=== PATIENT | male | born 1980 | race Caucasian/White ===

== ENCOUNTER 2017-02-10 17:39 | Emergency (ER) | payer OTHER ==
[2017-02-10] MEDS ORDERED: SODIUM CHLORIDE 0.9% 1,000 ML IV ONE (18:35)
[2017-02-10] MEDS ORDERED: ONDANSETRON 4 MG/2 ML VIAL IVP STA (19:00)
[2017-02-10] MEDS ORDERED: ONDANSETRON 4 MG/2 ML VIAL ONE (19:15)
== END 2017-02-10 20:30 | disposition home or self-care (01) ==
DX: R11.2 Nausea with vomiting, unspecified (principal); R74.8 Abnormal levels of other serum enzymes; R03.0 Elevated blood-pressure reading, without diagnosis of hypertension

== ENCOUNTER 2019-12-02 09:06 | Emergency (ER) | payer OTHER ==
[2019-12-02] MEDS ORDERED: BUPIVACAINE 0.5% PF 10 ML VIAL SUBQ STA (09:33)
--- NOTE | 2019-12-02 09:47 | XRAY Report ---
Reason: thumb vs hammer Procedure Date: 12/02/2019 Accession Number: [id number] / [id number] Procedure: XR - Finger(s) LT CPT Code: Final Report FULL RESULT: EXAM: LEFT FIRST DIGIT RADIOGRAPHY EXAM DATE: 12/02/2019 09:35 AM. CLINICAL HISTORY: Thumb vs hammer. COMPARISON: None. TECHNIQUE: 3 views. FINDINGS: Bones: There is comminuted fracture through the first distal phalanx. Joints: No evidence of dislocation. Soft Tissues: No evidence of radiopaque foreign body. IMPRESSION: There is comminuted fracture through the distal aspect of the first distal phalanx. RADIA
--- NOTE | 2019-12-02 10:08 | ED Physician Documentation ---
PD HPI UPPER EXT INJURY - Stated complaint Stated Complaint: L THUMB INJURY - Chief complaint Chief Complaint: Ext Problem - History obtained from History obtained from: Patient, Friend - History of Present Illness Location: Left, Finger (thumb) Type of injury: Blunt / blow Where injury occurred: Work Timing - onset: Yesterday (1729) Timing - duration: Hours Timing - details: Abrupt onset, Still present Improved by: Rest, Immobilization Worsened by: Moving, Palpating Associated symptoms: No: Weakness, Numbness, Tingling Contributing factors: No: Anticoagulated Similar symptoms before: Has not had sx before Recently seen: Not recently seen - Additonal information Additional information: 38-year-old male was at work yesterday when he was using a an aluminum blow hammer and struck the dorsum of his left thumb distally. He has partial avulsion of the nail and bleeding which was able to control with direct pressure he comes in this morning for evaluation. Review of Systems Constitutional: denies: Fever Ears: denies: Ear pain Nose: denies: Congestion Respiratory: denies: Cough GI: denies: Vomiting PD PAST MEDICAL HISTORY - Past Medical History Past Medical History: Yes Cardiovascular: Hypertension Neuro: Seizure disorder - Past Surgical History Past Surgical History: No - Present Medications Home Medications: Ambulatory Orders Medication Instructions Recorded Confirmed Amox/Clav 875/125 [Augmentin] 1 each PO Q12H #10 tablet 12/02/19 Hydrochlorothiazide 0 mg PO DAILY 12/02/19 12/02/19 Hydrocodone/Acetaminophen 1 - 2 each PO Q6H PRN #14 tablet 12/02/19 [Hydrocodon-Acetaminophen 5-325] - Allergies Allergies/Adverse Reactions: Allergies Allergy/AdvReac Type Severity Reaction Status Date / Time No Known Drug Allergies Allergy Verified 12/02/19 09:22 - Social History Does the pt smoke?: Yes Smoking Status: Current some day smoker ETOH Use: Beer Substance Use and Type: Marijuana - Immunizations Immunizations: TDAP >10years/unknown PD ED PE NORMAL - Vitals Vital signs reviewed: Yes (Hypertensive) - General General: Alert and oriented X 3, No acute distress, Well developed/nourished - HEENT HEENT: Atraumatic, PERRL, EOMI - Neck Neck: Supple, no meningeal sign - Respiratory Respiratory: No respiratory distress - Derm Derm: Normal color, Warm and dry, No rash - Extremities Extremities: Other (There is a partial avulsion of the nail proximally through the cuticle and a laceration to the ulnar surface of the left thumb. Significant swelling to the pulp of the thumb. There is no damage proximally.) - Neuro Neuro: scientific investigator 2-12 intact, No motor deficit, No sensory deficit, Normal speech Eye Opening: Spontaneous Motor: Obeys Commands Verbal: Oriented GCS Score: 15 - Psych Psych: Normal mood, Normal affect Results - Vitals Vitals: Vital Signs - 24 hr 12/02/19 09:17 Temperature 37 C Heart Rate 90 Respiratory 16 Rate Blood Pressure 177/122 H O2 Saturation 98 Oxygen O2 Source Room air - Rads (name of study) thumb Radiology: Prelim report reviewed, EMP read indepedently, See rad report Procedures - Laceration (location) left thumb Length in cm: 6 Wound type: Curved, Flap, Clean Neurovascular status: Sensory intact, Motor intact, Vascular intact Anesthesia: Marcaine 0.5% (digital block) Wound Preparation: Hibiclens, Irrigated copiously NS (750ml), Wound explored, To the base, Multiple flaps aligned Deep layer closure: Vicryl, size #-0 - enter number (5-0), # sutures - enter number (3), Other (into the nail bed) Skin layer closure: Nylon, Interrupted, Size #-0 - enter number (5-0) Other: Patient tolerated well, No complications, Neurovascular intact, Dressing applied, Tetanus booster given Complexity: Simple PD MEDICAL DECISION MAKING - ED course Complexity details: reviewed results, re-evaluated patient, considered differential, d/w patient, d/w family ED course: Previously well 38-year-old male with a crush injury to his left thumb has a comminuted fracture of the distal phlange and this is cleaned out reapproximated the margins of the wounds are sutured nailbed is reapproximated and sutured and the patient is given a tetanus booster and a gram of Ancef IM. We will place him on a 5-day course of prophylactic antibiotic and some pain medication and we will give him a two-week note for work after which she may perform duties with his right hand only. Departure - Departure Disposition: 01 Home, Self Care Clinical Impression: Open fracture of tuft of distal phalanx of left thumb Thumb laceration Qualifiers: Encounter type: initial encounter Damage to nail status: with damage Foreign body presence: without foreign body Laterality: left Qualified Code(s): S61.112A - Laceration without foreign body of left thumb with damage to nail, initial encounter Condition: Stable Instructions: ED Laceration Hand, ED Fx Finger Open Follow-Up: [facility] [Provider Group] Prescriptions: Amox/Clav 875/125 [Augmentin] 1 each PO Q12H #10 tablet Hydrocodone/Acetaminophen [Hydrocodon-Acetaminophen 5-325] 1 - 2 each PO Q6H PRN #14 tablet PRN Reason: pain Comments: There is an open fracture to the distal part of your thumb and this will require you to take some prophylactic antibiotic for about 5 days. You can expect pain when the numbing medication wears off and my recommendation is to take some the pain medication as you start to feel the numbing wear off. I have written a note for work for 2 weeks off and I suspect by that time you may be able to use your left hand somewhat with a splint on. Come back to the emergency department in 2 days time for a wound check and follow-up next week with the orthopedic surgeons for suture removal. Forms: Activity restrictions
[2019-12-02] MEDS ORDERED: ceFAZolin 1 GM VIAL IM STA (13:31)
[2019-12-02] MEDS ORDERED: TETANUS/DIPHTHERIA/PERTUSSIS 0.5 ML SYRINGE IM ONE (13:31)
[2019-12-02 13:56] VITALS: BP 162/113
== END 2019-12-02 14:09 | disposition home or self-care (01) ==
LOC: ED 09:06
DX: S62.522B Displaced fracture of distal phalanx of left thumb, initial encounter for open fracture (principal); S67.02XA Crushing injury of left thumb, initial encounter; W27.8XXA Contact with other nonpowered hand tool, initial encounter; Y93.89 Activity, other specified; Y99.0 Civilian activity done for income or pay; Z23 Encounter for immunization; I10 Essential (primary) hypertension; F17.200 Nicotine dependence, unspecified, uncomplicated
CPT/HCPCS: 12002; 12042; 73140; 90471; 99283; 99284

== ENCOUNTER 2020-07-15 04:03 | Outpatient (CLI) | payer OTHER | END 2020-07-15 04:04 | disposition critical access hospital (66) | LOC: EMS 04:03 | PROVIDERS: ATTEND Surgery | DX: R56.9 Unspecified convulsions (principal) | CPT/HCPCS: A0425; A0427 ==

== ENCOUNTER 2020-07-15 04:45 | Inpatient (IN) | payer OTHER ==
--- NOTE | 2020-07-15 04:44 | ED Physician Documentation ---
PD HPI SEIZURE - Stated complaint Stated Complaint: SZ - History obtained from History obtained from: Patient, EMS - History of Present Illness Timing - onset: Enter time (03:30), Today Witnessed: Witnessed Number of seizures: Single Description of seizure activity: Generalized Injury during seizure: Bit tongue Pain level max: 0 Pain level now: 0 Associated symptoms: None History of seizures: Prior EtOH wdrawal sz Contributing factors: EtOH withdrawal Treatment SOLUTIONS ANALYST: Other (none) Recently seen: Emergency Dept (T+R last month for similar problem) - Additional information Additional information: BIBA for seizure. 911 was called by patient's roommate. Reportedly had generalized seizure with LOC lasting approximately 1 minute. He had a seizure earlier during the day as well as approximately 1 week ago and another seizure last month (when he was T+R from this ED). Patient tells me he has been drinking alcohol on a heavy and regular basis and that he has been trying to wean himself off of alcohol. He says his prior seizures have been attributed to alcohol withdrawal. He has not followed up with a medical professional in the outpatient setting after being T+R last month. Review of Systems Constitutional: reports: Sweats. denies: Fever, Chills Eyes: denies: Loss of vision, Decreased vision, Photophobia Cardiac: reports: Reviewed and negative Respiratory: reports: Reviewed and negative GI: reports: Nausea, Vomiting. denies: Abdominal Pain Neurologic: reports: Seizure. denies: Generalized weakness, Focal weakness, Numbness, Headache Psychiatric: denies: Hallucinations, Anxiety (denies feeling anxious) PD PAST MEDICAL HISTORY - Past Medical History Past Medical History: Yes Cardiovascular: Hypertension - Past Surgical History Past Surgical History: No - Present Medications Home Medications: Ambulatory Orders Medication Instructions Recorded Confirmed Amox/Clav 875/125 [Augmentin] 1 each PO Q12H #10 tablet 12/02/19 Hydrochlorothiazide 0 mg PO DAILY 12/02/19 12/02/19 Hydrocodone/Acetaminophen 1 - 2 each PO Q6H PRN #14 tablet 12/02/19 [Hydrocodon-Acetaminophen 5-325] Lidocaine Viscous 2% [Xylocaine 5 ml PO Q4H PRN #100 ml 07/15/20 Viscous 2%] Ondansetron Odt [Zofran] 4 mg TL Q6H PRN #10 tablet 07/15/20 PHENobarbitaL [Phenobarbital] 30 mg PO BID #8 tablet 07/15/20 - Allergies Allergies/Adverse Reactions: Allergies Allergy/AdvReac Type Severity Reaction Status Date / Time No Known Drug Allergies Allergy Verified 07/15/20 04:53 - Living Situation Living Arrangement: reports: At home PD ED PE NORMAL - Vitals Vital signs reviewed: Yes - General General: Well developed/nourished, Other (awake, alert, oriented x 2 (identifies year as 2011; given a second attempt, he says 2001). He is tremulous at rest, appears hypervigilant and mildly diaphoretic) - HEENT HEENT: PERRL, EOMI, Moist mucous membranes, Other (midline tongue laceration with fresh blood although no active bleeding) - Neck Neck: Supple, no meningeal sign, No bony TTP - Cardiac Cardiac: No murmur - Respiratory Respiratory: No respiratory distress, Clear bilaterally - Abdomen Abdomen: Soft, Non tender, Non distended - Back Back: No spinal TTP - Derm Derm: Normal color, Warm and dry - Extremities Extremities: No tenderness to palpate, Normal ROM s pain, No edema PD ED PE EXPANDED - Cardiac Cardiac: Tachy, Regular Rhythm Results - Vitals Vitals: Vital Signs - 24 hr 07/15/20 07/15/20 07/15/20 04:48 05:36 06:20 Temperature 36.4 C L Heart Rate 135 H 121 H 119 H Respiratory 24 23 20 Rate Blood Pressure 119/105 H 117/82 H O2 Saturation 96 94 99 07/15/20 07/15/20 07/15/20 08:00 09:23 10:35 Temperature 37.3 C Heart Rate 118 H 110 H 111 H Respiratory 20 22 24 Rate Blood Pressure 137/99 H 143/108 H 126/97 H O2 Saturation 96 95 95 07/15/20 07/15/20 11:09 12:02 Temperature 37.1 C 37.0 C Heart Rate 121 H 122 H Respiratory 18 21 Rate Blood Pressure 142/102 H 143/110 H O2 Saturation 95 96 Oxygen O2 Source Room air - Labs Labs: Laboratory Tests 07/15/20 07/15/20 07/15/20 04:55 04:55 04:55 WBC 9.3 RBC 4.77 Hgb 15.6 Hct 44.6 MCV 93.5 MCH 32.7 H MCHC 35.0 RDW 14.0 Plt Count 57 L MPV 10.5 Neut # (Auto) 7.7 H Lymph # (Auto) 0.5 L Mills # (Auto) 0.8 Eos # (Auto) 0.2 Baso # (Auto) 0.1 Absolute Nucleated RBC 0.00 Nucleated RBC % 0.0 PT 15.9 H INR 1.5 H APTT 30.6 Sodium 137 Potassium 2.8 L Chloride 89 L Carbon Dioxide 24 Anion Gap 24.0 H BUN 5 L Creatinine 0.9 Estimated GFR (MDRD) 93 Glucose 182 H Calcium 7.6 L Total Bilirubin 1.9 H AST 182 H ALT < 10 L Alkaline Phosphatase 112 Total Protein 8.6 H Albumin 4.0 Globulin 4.6 H Albumin/Globulin Ratio 0.9 L Lipase 77 H Urine Opiates Screen Ur Oxycodone Screen Urine Methadone Screen Ur Propoxyphene Screen Ur Barbiturates Screen Ur Tricyclics Screen Ur Phencyclidine Scrn Ur Amphetamine Screen U Methamphetamines Scrn U Benzodiazepines Scrn Urine Cocaine Screen U Cannabinoids Screen Ethyl Alcohol < 5.0 07/15/20 08:51 WBC RBC Hgb Hct MCV MCH MCHC RDW Plt Count MPV Neut # (Auto) Lymph # (Auto) Mills # (Auto) Eos # (Auto) Baso # (Auto) Absolute Nucleated RBC Nucleated RBC % PT INR APTT Sodium Potassium Chloride Carbon Dioxide Anion Gap BUN Creatinine Estimated GFR (MDRD) Glucose Calcium Total Bilirubin AST ALT Alkaline Phosphatase Total Protein Albumin Globulin Albumin/Globulin Ratio Lipase Urine Opiates Screen NEGATIVE Ur Oxycodone Screen NEGATIVE Urine Methadone Screen NEGATIVE Ur Propoxyphene Screen NEGATIVE Ur Barbiturates Screen NEGATIVE Ur Tricyclics Screen NEGATIVE Ur Phencyclidine Scrn NEGATIVE Ur Amphetamine Screen NEGATIVE U Methamphetamines Scrn NEGATIVE U Benzodiazepines Scrn POSITIVE H Urine Cocaine Screen NEGATIVE U Cannabinoids Screen NEGATIVE Ethyl Alcohol PD MEDICAL DECISION MAKING - ED course Complexity details: reviewed old records, reviewed results, re-evaluated patient, considered differential, d/w patient ED course: on serial reexaminations during my overnight shift, patient exhibited improvement in his tremulousness as well as level of orientation (was oriented x 3 by end of my shift). However, he is still unsteady when trying to stand, has persistent tachycardia, and, although less tremulous, he does exhibit residual tremulousness with activity/movement (initially was evident even at rest). He still needs further IV hydration and potassium repletion before disposition can be determined, and would benefit from SW consult in AM for consideration of treatment options for his alcoholism. Case signed out to Dr. Lorenzo at end of my shift. Departure - Departure Disposition: 66 [facility] DC/Xfer Clinical Impression: Alcoholism, Alcohol related seizure, Generalized weakness, Electrolyte abnormality Alcohol withdrawal Qualifiers: Complication of substance-induced condition: with unspecified complication Qualified Code(s): F10.239 - Alcohol dependence with withdrawal, unspecified Tongue laceration Qualifiers: Encounter type: initial encounter Qualified Code(s): S01.512A - Laceration without foreign body of oral cavity, initial encounter Condition: Stable Discharge Date/Time: 07/15/20 14:50
[2020-07-15] MEDS ORDERED: FOLIC ACID INJ 1 MG, THIAMINE INJ 100 MG, MAGNESIUM SULFATE 2 GM, MULTIVITAMIN 10 ML in... IV STA ×5 (04:51)
[2020-07-15] MEDS ORDERED: SODIUM CHLORIDE 0.9% 1,000 ML IV STA ×2 (04:51→07:47)
[2020-07-15] MEDS ORDERED: LORazepam 2 MG/ML VIAL IVP STA (04:51)
[2020-07-15] MEDS ORDERED: ONDANSETRON 4 MG/2 ML VIAL IVP STA (04:54)
[2020-07-15] MEDS ORDERED: THIAMINE 100 MG/1 ML 2 ML MDV ONE (05:02)
[2020-07-15] MEDS ORDERED: FOLIC ACID 5 MG/1 ML 10ML MDV ONE (05:02)
[2020-07-15] MEDS ORDERED: MAGNESIUM SULFATE 1 GM/2 ML VIAL ONE (05:02)
[2020-07-15 05:09] LABS: INR 1.5 (0.8-1.2); PT - PROTHROMBIN TIME 15.9 secs (9.9-12.6)
[2020-07-15 05:13] LABS: BASOPHILS # (AUTO) 0.1 10^3/uL (0.0-0.1); BASOPHILS % (AUTO) 0.7 %; EOSINOPHILS # (AUTO) 0.2 10^3/uL (0.0-0.7); EOSINOPHILS % (AUTO) 1.9 %; HGB - HEMOGLOBIN 15.6 g/dL (14.0-18.0); LYMPHOCYTES # (AUTO) 0.5 10^3/uL (1.5-3.5); LYMPHOCYTES % (AUTO) 5.4 %; MEAN CORPUSCULAR HEMOGLOBIN 32.7 pg (27.0-31.0); MEAN CORPUSCULAR VOLUME 93.5 fL (80.0-94.0); MEAN PLATELET VOLUME 10.5 fL (7.4-11.4); MONOCYTES # (AUTO) 0.8 10^3/uL (0.0-1.0); MONOCYTES % (AUTO) 8.4 %; NEUTROPHILS # (AUTO) 7.7 10^3/uL (1.5-6.6); NEUTROPHILS % (AUTO) 82.6 %; PLT - PLATELET COUNT 57 10^3/uL (130-450); RED BLOOD COUNT 4.77 10^6/uL (4.70-6.10); WHITE BLOOD COUNT 9.3 x10^3/uL (4.8-10.8)
[2020-07-15 05:16] LABS: PARTIAL THROMBOPLASTIN TIME 30.6 secs (24.9-33.3)
[2020-07-15 05:23] LABS: ALBUMIN/GLOBULIN RATIO 0.9 (1.0-2.2); ALKALINE PHOSPHATASE 112 IU/L (42-121); ALT ALANINE AMINOTRANSFERASE < 10 IU/L (10-60); AST ASPARTATE AMINOTRANSFERASE 182 IU/L (10-42); BILIRUBIN,TOTAL 1.9 mg/dL (0.2-1.0); BUN - BLOOD UREA NITROGEN 5 mg/dL (6-20); CALCIUM 7.6 mg/dL (8.5-10.3); CARBON DIOXIDE - CO2 24 mmol/L (21-32); CHLORIDE 89 mmol/L (101-111); CREATININE 0.9 mg/dL (0.6-1.2); GLUCOSE 182 mg/dL (70-100); LIPASE 77 U/L (22-51); SODIUM 137 mmol/L (135-145); TOTAL PROTEIN 8.6 g/dL (6.7-8.2)
[2020-07-15] MEDS ORDERED: POTASSIUM CHLOR 10 MEQ/100 ML 10 MEQ/100 ML BAG IV STA (05:44)
[2020-07-15] MEDS ORDERED: POTASSIUM CHLORIDE 20 MEQ TABLET PO STA (07:48)
[2020-07-15] MEDS ORDERED: chlordiazePOXIDE 25 MG CAPSULE PO STA (07:48)
[2020-07-15] MEDS ORDERED: PHENobarbital 65 MG/ML VIAL IV STA (07:59)
[2020-07-15 08:59] LABS: MUDS CUTOFF CONCENTRATIONS CUTOFF CONC BELOW:
[2020-07-15 09:13] LABS: AMPHETAMINE SCREEN,URINE NEGATIVE (NEGATIVE); BENZODIAZEPINES SCREEN, URINE POSITIVE (NEGATIVE); COCAINE SCREEN URINE NEGATIVE (NEGATIVE); METHADONE SCREEN, URINE NEGATIVE (NEGATIVE); METHAMPHETAMINES SCREEN, URINE NEGATIVE (NEGATIVE); OPIATE SCREEN, URINE NEGATIVE (NEGATIVE); OXYCODONE SCREEN, URINE NEGATIVE (NEGATIVE); PROPOXYPHENE SCREEN, URINE NEGATIVE (NEGATIVE); TRICYCLIC ANTIDEPRESSANT,URINE NEGATIVE (NEGATIVE)
[2020-07-15] MEDS ORDERED: LIDOCAINE VISCOUS 2% 15 ML UDC MM STA (10:41)
[2020-07-15] MEDS ORDERED: LACTATED RINGERS 1,000 ML IV STA (13:54)
[2020-07-15] MEDS ORDERED: POTASSIUM CHLOR 10 MEQ/100 ML 10 MEQ/100 ML BAG IV ONE (13:55)
[2020-07-15] MEDS ORDERED: CALCIUM GLUCONATE 1,000 MG in SODIUM CHLORIDE 0.9% 50 ML IV STA (13:56)
[2020-07-15] MEDS ORDERED: oxyCODONE 5 MG TABLET PO PRN (14:04)
[2020-07-15] MEDS ORDERED: ONDANSETRON ODT 4 MG TABLET TL PRN (14:04)
[2020-07-15] MEDS ORDERED: ONDANSETRON 4 MG/2 ML VIAL IVP PRN (14:04)
[2020-07-15 14:25] LABS: CREATININE 0.5 mg/dL (0.6-1.2)
[2020-07-15 14:26] LABS: ALBUMIN 3.4 g/dL (3.2-5.5); ALBUMIN/GLOBULIN RATIO 0.9 (1.0-2.2); BILIRUBIN,TOTAL 2.4 mg/dL (0.2-1.0); CALCIUM 6.9 mg/dL (8.5-10.3); TOTAL PROTEIN 7.1 g/dL (6.7-8.2)
[2020-07-15] MEDS ORDERED: BENZOCAINE/MENTHOL LOZENGE MM PRN (15:43)
[2020-07-15 18:30] LABS: CALCIUM 7.2 mg/dL (8.5-10.3); CREATININE 0.6 mg/dL (0.6-1.2)
--- NOTE | 2020-07-15 18:51 | HISTORY & PHYSICAL EXAMINATION ---
Chief Complaint - Chief Complaint Chief Complaint: seizure History of Present Illness - Admitted From Admitted From:: home/ER - History Obtained From Records Reviewed: [facility] History obtained from: patient and Dr. Lorenzo Exam Limitations: sedated from phenobarb - History of Present Illness HPI Comment/Other: He is a 39-year-old white male who is been drinking since 18 years of age. Drinks a pint of hard alcohol a day. Years ago he did have withdrawal seizures. Lately he has been trying to cut back on his alcohol and is had a seizure a month ago, a week ago, and then today. He was seen in the emergency room by Dr. Lezama June 01 for a seizure at work. Again related to alcohol use. He was instructed to seek primary care provider follow-up, not to drive. He continues to work as a fitter/welder, and initially admitted he was still driving but then quickly denied it. In the travel registered nurse icu hours of this morning, he had a generalized seizure that lasted over a minute. He also had a seizure yesterday. His roommate finally just called 911 and brought him to the emergency room. He was initially afebrile with a tachycardic heart rate of 135. Respirations 24. He was awake, alert, oriented to person and place but not time. He was tremulous, hypervigilant, diaphoretic. A midline tongue laceration with fresh blood. White cell count was 9.3. INR is 1.5. Potassium was 2.8. Glucose 182. Total bili 1.9. AST 182. ALT less than 10. Total protein is 8.6. Alcohol alcohol is less than 5. He received a banana bag, Librium, Ativan, a liter of normal saline x2, Zofran and a potassium rider. Dr. Lorenzo then took over the case and gave him lactated Ringer's drip, Viscous Lidocaine for his mouth, and phenobarbital. Dr. Lorenzo is using phenobarbital not for seizures but for a new method of controlling withdrawal. The patient continues to be tremulous, tachycardic, and is not felt safe to go home as he is going into withdrawal. As such we were contacted and we are admitting the patient. History - Past Medical History Cardiovascular: reports: Hypertension Neuro: reports: Seizure disorder MRSA Hx?: No - Family & Social History Family History Comment/Other: Mom is in her 60s and and just had a stroke. Dad in his 40s of lupus. 2 siblings are healthy. 1 child is healthy Living arrangement: At home Living Situation: With friend(s) Social History Notes: He is from [place]. 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 He has been doing cannabis off and on all his life since about the age of 10. Drinking since the age of 18. He denies cocaine, heroin, LSD use. Never . Lives with a roommate. Does have one child that he is not in contact with. - Substance History Dependence: Experiences withdrawal or developed tolerances: Alcohol Dependence Issues: Intoxication, Delirium, Hallucinations, Withdrawal - POLST Patient has POLST: No POLST Status: Full Code Meds/Allgy - Home Medications Home Medications: Ambulatory Orders Medication Instructions Recorded Confirmed Amox/Clav 875/125 [Augmentin] 1 each PO Q12H #10 tablet 12/02/19 Hydrochlorothiazide 0 mg PO DAILY 12/02/19 12/02/19 Hydrocodone/Acetaminophen 1 - 2 each PO Q6H PRN #14 tablet 12/02/19 [Hydrocodon-Acetaminophen 5-325] Lidocaine Viscous 2% [Xylocaine 5 ml PO Q4H PRN #100 ml 07/15/20 Viscous 2%] Ondansetron Odt [Zofran] 4 mg TL Q6H PRN #10 tablet 07/15/20 PHENobarbitaL [Phenobarbital] 30 mg PO BID #8 tablet 07/15/20 - Allergies Allergies/Adverse Reactions: Allergies Allergy/AdvReac Type Severity Reaction Status Date / Time No Known Drug Allergies Allergy Verified 07/15/20 04:53 Review of Systems - Constitutional Constitutional: reports: Other (No unanticipated weight changes, fevers, chills, sweats. The only time he gets ill is when he goes through withdrawal.) - Eyes Eyes: denies: Pain, Irritation, Amaurosis, Blurred vision, Vision loss - Ears, Nose & Throat Ears, Nose & Throat: reports: Hearing loss, Tinnitus, Other (Right now his tongue is very swollen, tender, and he is drooling saliva, finding it difficult to speak). denies: Ear pain, Hearing aids, Vertigo - Cardiovascular Cariovascular: denies: Irregular heart rate, Palpitations, Chest pain, Edema, Syncope, Exertional dyspnea, Decr. exercise tolerance - Respiratory Respiratory: denies: Cough, Sputum production, Snoring, SOB at rest, SOB with exertion - Gastrointestinal Gastrointestinal: reports: Abdominal distention, Constipation, Bloating. denies: Abdominal pain, Diarrhea, Change in bowel habits, Rectal bleeding, Vomi ting, Bile emesis, Umer blood emesis, Coffee grounds emesis, Reflux/heartburn - Genitourinary Genitourinary: denies: Dysuria, Frequency, Urgency, Hematuria, Flank pain, Nocturia - Musculoskeletal Musculoskeletal: reports: Muscle pain, Back pain, Muscle aches. denies: Stiffness, Muscle weakness, Gout, Joint pain - Integumentary Integumentary: denies: Rash, Pruritis, Lesions, Dryness - Neurological Neurological: reports: Headache. denies: General weakness, Focal weakness, Dizziness, Pre-existing deficit, Abnormal gait - Psychiatric Psychiatric: reports: Depression (Is why he drinks. He denies suicidal ideation.), Hallucinations. denies: Anxiety, Suicidal, Delusions - Endocrine Endocrine: denies: Polyuria, Polydypsia, Polyphagia - Hematologic/Lymphatic Hematologic/Lymphatic: denies: Anemia, Bruising Prior Level of Functionality: Completely independent with regards to activities of daily living. He drives, pays the bills, dresses himself, feeds himself, takes care of his own apartment. 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 Exam - Vital Signs Reviewed Vital Signs: Yes Vital Signs: Vital Signs x48h Temp Pulse Pulse Resp BP BP Pulse Ox 07/15/20 16:38 37.9 C H 100 209 H 96 07/15/20 15:54 37.9 C H 101 H 20 126/93 H 96 07/15/20 15:01 36.9 C 112 H 19 131/99 H 95 07/15/20 14:43 37.0 C 117 H 24 135/106 H 93 07/15/20 12:02 37.0 C 122 H 21 143/110 H 96 07/15/20 11:09 37.1 C 121 H 18 142/102 H 95 - Physical Exam General Appearance: positive: Other (Stocky, lethargic white male who is 5 foot 6 inches tall and was 96 kg. Male pattern baldness, disheveled with a few Chuckie bautista. He is asleep when I wake him up, drool is all over the pillow, and he speaks with a thick slurred speech because of the swollen tongue) Eyes Bilateral: positive: PERRL, EOMI ENT: positive: Pharynx nml Neck: positive: No JVD, Lymphadenopathy (R), Lymphadenopathy (L). negative: Stiff neck Respiratory: positive: Chest non-tender. negative: Wheezes, Rales, Rhonchi Cardiovascular: positive: Regular rate & rhythm, Tachycardia. negative: Syst olic murmur, Gallop/S4, Friction rub Peripheral Pulses: positive: 2+ Abdomen: positive: Non-tender, No organomegaly, Nml bowel sounds, No distention Skin: positive: Warm, Dry Extremities: positive: Non-tender, Full ROM Neurologic/Psychiatric: positive: CN's nml (2-12), Disoriented to time, Slurred/abnml speech. negative: Motor nml (Tremulous. But using his arms and hands appropriately to grab pillows, grab sheets. Sit up in bed. Try and stand up. However when he stands up is off balance.) Conclusion/Plan - Problem List (1) Alcohol related seizure Conclusion/Plan: According to Dr. Lorenzo's protocol, continue with phenobarb 60 mg p.o. twice daily the next day, then 30 mg p.o. twice daily for 1 day, then 30 mg a day for 2 days and be done. Again he stresses that this is more for the withdrawal part than the true seizure. The thought being that if you treat the alcohol withdrawal seizure disorder will tameka. Plan: I need to fill out a DMV form on this patient. He states that he is not driving after I reminded him that he was told not to drive but he had already admitted he was. Because withdrawal seizures do not recur if the patient remains absent, long-term administration of antiepileptic drug is unnecessary and abstinent patient. Since he is not being abstinent we may have to decide to have to put him on seizure medications. However, seizure medications combined with alcohol can lower seizure threshold. Will use CIWA and benzo for control. If another seizure occurs, CT head. (2) Alcohol withdrawal Conclusion/Plan: CIWA protocol Banana bag with magnesium Qualifiers: Complication of substance-induced condition: with unspecified complication Qualified Code(s): F10.239 - Alcohol dependence with withdrawal, unspecified (3) Tongue laceration Conclusion/Plan: Tongue laceration lidocaine swish and spit with some Benadryl Qualifiers: Encounter type: initial encounter Qualified Code(s): S01.512A - Laceration without foreign body of oral cavity, initial encounter (4) Hypokalemia Conclusion/Plan: Supplemented p.o. and IV in the emergency room. Repeat potassium is 2.7. Will supplement with more K riders. (5) Alcoholic hepatitis Conclusion/Plan: At this time the elevation of liver enzymes is classic in its ratio with AST to ALT. Tomorrow morning will have blood draw for acute hepatitis panel to rule out other causes of hepatitis.will also check US liver Qualifiers: Ascites presence: without ascites Qualified Code(s): K70.10 - Alcoholic hepatitis without ascites - Lab Results Lab results reviewed: Yes Fish Bones: 07/15/20 04:55 07/15/20 18:10
[2020-07-15] MEDS ORDERED: LIDOCAINE VISCOUS 2% 100 ML BOTTLE MM PRN (19:07)
[2020-07-15] MEDS ORDERED: LORazepam 2 MG/ML VIAL IVP PRN (19:30)
[2020-07-15] MEDS ORDERED: diphenhydrAMINE ELIXIR 25 MG/10 ML UDC PO STA (19:31)
[2020-07-15] MEDS: LACTATED RINGERS 1,000 ML IV SCH (19:41)
[2020-07-15] MEDS: POTASSIUM CHLOR 10 MEQ/100 ML 10 MEQ/100 ML BAG IV SCH ×5 (19:42→23:51)
[2020-07-15] MEDS: SODIUM CHLORIDE FLUSH 0.9% 10 ML SYRINGE IVP SCH (19:42)
[2020-07-15] MEDS ORDERED: diphenhydrAMINE ELIXIR 25 MG/10 ML UDC PO PRN (20:00)
[2020-07-15] MEDS ORDERED: MAGIC MOUTHWASH 120 ML BOTTLE PO PRN (20:28)
[2020-07-15] MEDS: PHENobarbitaL 32.4 MG TABLET PO SCH (21:32)
[2020-07-16] MEDS: POTASSIUM CHLOR 10 MEQ/100 ML 10 MEQ/100 ML BAG IV SCH ×3 (00:54→03:00)
[2020-07-16] MEDS: SODIUM CHLORIDE FLUSH 0.9% 10 ML SYRINGE IVP SCH ×3 (01:35→21:23)
[2020-07-16] MEDS: LACTATED RINGERS 1,000 ML IV SCH ×2 (02:59→20:31)
[2020-07-16 06:15] LABS: BASOPHILS % (AUTO) 0.6 %; EOSINOPHILS % (AUTO) 0.2 %; HGB - HEMOGLOBIN 13.3 g/dL (14.0-18.0); LYMPHOCYTES # (AUTO) 0.7 10^3/uL (1.5-3.5); MEAN CORPUSCULAR HGB CONC 34.5 g/dL (32.0-36.0); MEAN CORPUSCULAR VOLUME 95.8 fL (80.0-94.0); MEAN PLATELET VOLUME 11.3 fL (7.4-11.4); MONOCYTES # (AUTO) 0.5 10^3/uL (0.0-1.0); MONOCYTES % (AUTO) 11.2 %; NEUTROPHILS # (AUTO) 3.4 10^3/uL (1.5-6.6); NEUTROPHILS % (AUTO) 73.6 %; PLT - PLATELET COUNT 36 10^3/uL (130-450); RED BLOOD COUNT 4.03 10^6/uL (4.70-6.10); RED CELL DISTRIBUTION WIDTH 14.4 % (12.0-15.0); WHITE BLOOD COUNT 4.6 x10^3/uL (4.8-10.8)
[2020-07-16 06:38] LABS: ALBUMIN 3.2 g/dL (3.2-5.5); ALKALINE PHOSPHATASE 93 IU/L (42-121); ALT ALANINE AMINOTRANSFERASE 26 IU/L (10-60); AST ASPARTATE AMINOTRANSFERASE 150 IU/L (10-42); BILIRUBIN,DIRECT 1.5 mg/dL (0.1-0.5); BUN - BLOOD UREA NITROGEN < 5 mg/dL (6-20); CALCIUM 7.4 mg/dL (8.5-10.3); CARBON DIOXIDE - CO2 23 mmol/L (21-32); CHLORIDE 97 mmol/L (101-111); CREATININE 0.5 mg/dL (0.6-1.2); GLUCOSE 109 mg/dL (70-100); MAGNESIUM 1.1 mg/dL (1.7-2.8); PHOSPHORUS 2.3 mg/dL (2.5-4.6); SODIUM 136 mmol/L (135-145); TOTAL PROTEIN 7.1 g/dL (6.7-8.2)
--- NOTE | 2020-07-16 07:26 | PROVIDER PROGRESS NOTE ---
Subjective - Prog Note Date Prog Note Date: 07/16/20 Prog Note Time: 15:26 - Subjective Pt reports feeling: Improved Subjective: Yesterday he was tremulous, diaphoretic, disoriented, speaking with a slurred speech and difficult to get a history out of. This morning he is sitting up. Tongue still hurts. But eating. Lucid. States the only thing he feels right now is sweaty. No chest pain, palpitations, shortness of breath. Current Medications - Current Medications Current Medications: Active Medications Multivitamins 10 ml/ Folic Acid 1 mg/ Thiamine HCl 100 mg / Magnesium Sulfate 2 gm/Sodium Chloride 1,015.2 mls @ 100 mls/hr IV DAILY [facility] Lactated Ringer's (Lr) 1,000 mls @ 125 mls/hr IV .Q8H [facility] Last Admin: 07/16/20 02:59 Dose: 125 mls/hr Documented by: Potassium Chloride (Potassium Chloride) 10 meq in 100 mls @ 100 mls/hr IV Q1H [facility] Stop: 07/16/20 11:59 Lorazepam (Ativan Inj (Vial)) 2 mg IVP Q2H PRN PRN Reason: Alcohol Withdrawal Multi-Ingredient Mouthwash/Gargle () 30 ml PO Q4H PRN PRN Reason: Mouth Sore Pain Ondansetron HCl (Zofran Odt) 4 mg TL Q6HR PRN PRN Reason: Nausea / Vomiting Ondansetron HCl (Zofran Inj) 4 mg IVP Q6HR PRN PRN Reason: Nausea / Vomiting Oxycodone HCl (Roxicodone) 5 mg PO Q4HR PRN PRN Reason: Pain 5 to 7 Phenobarbital () 64.8 mg PO BID [facility] Stop: 07/16/20 09:01 Last Admin: 07/15/20 21:32 Dose: 64.8 mg Documented by: Phenobarbital () 32.4 mg PO BID [facility] Stop: 07/17/20 21:01 Phenobarbital () 32.4 mg PO QPM [facility] Stop: 07/19/20 21:01 Sodium Chloride (Normal Saline Flush 0.9%) 10 ml IVP PRN PRN PRN Reason: NEEDED PER PROVIDER ORDERS Sodium Chloride (Normal Saline Flush 0.9%) 10 ml IVP 0100,0900,1700 [facility] Last Admin: 07/16/20 01:35 Dose: Not Given Documented by: Throat Lozenges (Cepacol) 1 lozenge MM Q2HR PRN PRN Reason: Throat pain Last Admin: 07/15/20 16:12 Dose: 1 lozenge Documented by: Hydrochlorothiazide 0 mg PO DAILY 12/02/19 Objective - Vital Signs/Intake & Output Reviewed Vital Signs: Yes Vital Signs: Vital Signs x48h Temp Pulse Resp BP Pulse Ox 07/16/20 00:00 37.0 C 96 18 143/103 H 94 Intake & Output: Intake & Output 07/13/20 07/14/20 07/15/20 07/16/20 23:59 23:59 23:59 23:59 Intake Total 4597.283 1008.750 Output Total 350 1500 Balance 4247.283 -491.250 - Objective General Appearance: positive: No acute distress, Alert, Other (Much improved from yesterday) Eyes Bilateral: positive: PERRL, EOMI ENT: positive: Other (Tip of his tongue is black and bruised. No oozing. He had blood yesterday today he does not. He is speaking with a slurred speech because of the swelling of the tongue) Neck: positive: No JVD, Trachea midline. negative: Lymphadenopathy (R), Lymphadenopathy (L) (Shotty anterior neck nodes), Stiff neck Respiratory: positive: Chest non-tender. negative: Wheezes, Rales, Rhonchi Cardiovascular: positive: Regular rate & rhythm. negative: Tachycardia, Gallop/S4, Friction rub Abdomen: positive: Non-tender, No organomegaly, Nml bowel sounds, No distention Skin: positive: Warm, Diaphoresis Extremities: positive: Non-tender, Full ROM Neurologic/Psychiatric: positive: Oriented x3, CN's nml (2-12), Motor nml (Except for some tremors when I have him hold on his hands. [id number] is normal.) - Lab Results Fish Bones: 07/16/20 05:50 07/16/20 14:13 Other Labs: Lab Results x24hrs 07/16/20 07/16/20 07/15/20 Range/Units 05:50 05:50 18:10 WBC 4.6 L (4.8-10.8) x10^3/uL RBC 4.03 L (4.70-6.10) 10^6/uL Hgb 13.3 L (14.0-18.0) g/dL Hct 38.6 L (42.0-52.0) % MCV 95.8 H (80.0-94.0) fL MCH 33.0 H (27.0-31.0) pg MCHC 34.5 (32.0-36.0) g/dL RDW 14.4 (12.0-15.0) % Plt Count 36 L (130-450) 10^3/uL MPV 11.3 (7.4-11.4) fL Neut # (Auto) 3.4 (1.5-6.6) 10^3/uL Lymph # (Auto) 0.7 L (1.5-3.5) 10^3/uL Lamb # (Auto) 0.5 (0.0-1.0) 10^3/uL Eos # (Auto) 0.0 (0.0-0.7) 10^3/uL Baso # (Auto) 0.0 (0.0-0.1) 10^3/uL Absolute Nucleated RBC 0.00 x10^3/uL Nucleated RBC % 0.0 /100WBC Sodium 136 137 (135-145) mmol/L Potassium 2.8 L 2.7 L (3.5-5.0) mmol/L Chloride 97 L 97 L (101-111) mmol/L Carbon Dioxide 23 25 (21-32) mmol/L Anion Gap 16.0 H 15.0 H (6-13) BUN < 5 L 5 L (6-20) mg/dL Creatinine 0.5 L 0.6 (0.6-1.2) mg/dL Estimated GFR (MDRD) 183 148 (>89) Glucose 109 H 109 H (70-100) mg/dL Calcium 7.4 L 7.2 L (8.5-10.3) mg/dL Phosphorus 2.3 L (2.5-4.6) mg/dL Magnesium 1.1 L (1.7-2.8) mg/dL Total Bilirubin 3.0 H (0.2-1.0) mg/dL Direct Bilirubin 1.5 H (0.1-0.5) mg/dL AST 150 H (10-42) IU/L ALT 26 (10-60) IU/L Alkaline Phosphatase 93 (42-121) IU/L Total Protein 7.1 (6.7-8.2) g/dL Albumin 3.2 (3.2-5.5) g/dL Globulin 3.9 (2.1-4.2) g/dL Albumin/Globulin Ratio (1.0-2.2) Lipase (22-51) U/L Urine Opiates Screen (NEGATIVE) Ur Oxycodone Screen (NEGATIVE) Urine Methadone Screen (NEGATIVE) Ur Propoxyphene Screen (NEGATIVE) Ur Barbiturates Screen (NEGATIVE) Ur Tricyclics Screen (NEGATIVE) Ur Phencyclidine Scrn (NEGATIVE) Ur Amphetamine Screen (NEGATIVE) U Methamphetamines Scrn (NEGATIVE) U Benzodiazepines Scrn (NEGATIVE) Urine Cocaine Screen (NEGATIVE) U Cannabinoids Screen (NEGATIVE) 07/15/20 07/15/20 Range/Units 14:04 08:51 WBC (4.8-10.8) x10^3/uL RBC (4.70-6.10) 10^6/uL Hgb (14.0-18.0) g/dL Hct (42.0-52.0) % MCV (80.0-94.0) fL MCH (27.0-31.0) pg MCHC (32.0-36.0) g/dL RDW (12.0-15.0) % Plt Count (130-450) 10^3/uL MPV (7.4-11.4) fL Neut # (Auto) (1.5-6.6) 10^3/uL Lymph # (Auto) (1.5-3.5) 10^3/uL Lamb # (Auto) (0.0-1.0) 10^3/uL Eos # (Auto) (0.0-0.7) 10^3/uL Baso # (Auto) (0.0-0.1) 10^3/uL Absolute Nucleated RBC x10^3/uL Nucleated RBC % /100WBC Sodium 137 (135-145) mmol/L Potassium 2.4 L* (3.5-5.0) mmol/L Chloride 96 L (101-111) mmol/L Carbon Dioxide 24 (21-32) mmol/L Anion Gap 17.0 H (6-13) BUN 6 (6-20) mg/dL Creatinine 0.5 L (0.6-1.2) mg/dL Estimated GFR (MDRD) 183 (>89) Glucose 112 H (70-100) mg/dL Calcium 6.9 L (8.5-10.3) mg/dL Phosphorus (2.5-4.6) mg/dL Magnesium (1.7-2.8) mg/dL Total Bilirubin 2.4 H (0.2-1.0) mg/dL Direct Bilirubin (0.1-0.5) mg/dL AST 156 H (10-42) IU/L ALT 26 (10-60) IU/L Alkaline Phosphatase 95 (42-121) IU/L Total Protein 7.1 (6.7-8.2) g/dL Albumin 3.4 (3.2-5.5) g/dL Globulin 3.7 (2.1-4.2) g/dL Albumin/Globulin Ratio 0.9 L (1.0-2.2) Lipase 58 H (22-51) U/L Urine Opiates Screen NEGATIVE (NEGATIVE) Ur Oxycodone Screen NEGATIVE (NEGATIVE) Urine Methadone Screen NEGATIVE (NEGATIVE) Ur Propoxyphene Screen NEGATIVE (NEGATIVE) Ur Barbiturates Screen NEGATIVE (NEGATIVE) Ur Tricyclics Screen NEGATIVE (NEGATIVE) Ur Phencyclidine Scrn NEGATIVE (NEGATIVE) Ur Amphetamine Screen NEGATIVE (NEGATIVE) U Methamphetamines Scrn NEGATIVE (NEGATIVE) U Benzodiazepines Scrn POSITIVE H (NEGATIVE) Urine Cocaine Screen NEGATIVE (NEGATIVE) U Cannabinoids Screen NEGATIVE (NEGATIVE) ABX Reporting Has patient been on IV antibiotics over the past 48 hours?: No Assessment/Plan - Problem List (1) Alcohol related seizure Impression: 07/16: no further seizures since yesterday. No change in meds. continue CIWA and taper off phenobarb for withdrawal 07/15: According to Dr. Lorenzo's protocol, continue with phenobarb 60 mg p.o. twice daily the next day, then 30 mg p.o. twice daily for 1 day, then 30 mg a day for 2 days and be done. Again he stresses that this is more for the withdrawal part than the true seizure. The thought being that if you treat the alcohol withdrawal seizure disorder will tameka. Plan: I need to fill out a DMV form on this patient. He states that he is not driving after I reminded him that he was told not to drive but he had already admitted he was. Because withdrawal seizures do not recur if the patient remains absent, long-term administration of antiepileptic drug is unnecessary and abstinent patient. Since he is not being abstinent we may have to decide to have to put him on seizure medications. However, seizure medications combined with alcohol can lower seizure threshold. Will use CIWA and benzo for control. If another seizure occurs, CT head. (2) Alcohol withdrawal Conclusion/Plan: CIWA protocol Banana bag with magnesium taper off the phenobarb He would like to talk to social work about a rehab facility and I have let them know Qualifiers: Complication of substance-induced condition: with unspecified complication Qualified Code(s): F10.239 - Alcohol dependence with withdrawal, unspecified (3) Tongue laceration Conclusion/Plan: Tongue laceration lidocaine swish and spit with some Benadryl. I spoke to Dr. Lorenzo about the tongue laceration. He says is not much to do except to wait. I worry about necrotic tissue. But the patient does not have fever. The tissue looks bruised/black but is not coming apart. Plan: Continue to monitor and look for signs of necrosis or infection Qualifiers: Encounter type: initial encounter Qualified Code(s): S01.512A - Laceration without foreign body of oral cavity, initial encounter (4) Hypokalemia Conclusion/Plan: 07/16: K is 3.4. Will supplement with liquid K 07/15: Supplemented p.o. and IV in the emergency room. Repeat potassium is 2.7. Will supplement with more K riders. (5) Alcoholic hepatitis Conclusion/Plan: 07/16:Tox screen negative for anything but benzodiazepines. Serology for hepatitis panel drawn and pending. Ultrasound requested for today. They seem to be backed up and it may not be done until later today or tomorrow. At this time the elevation of liver enzymes is classic in its ratio with AST to ALT. Tomorrow morning will have blood draw for acute hepatitis panel to rule out other causes of hepatitis.will also check US liver Qualifiers: Ascites presence: without ascites Qualified Code(s): K70.10 - Alcoholic hepatitis without ascites (3) Tongue laceration Qualifiers: Qualified Code(s): S01.512A - Laceration without foreign body of oral cavity, initial encounter
[2020-07-16] MEDS ORDERED: POTASSIUM CHLOR 10 MEQ/100 ML 10 MEQ/100 ML BAG IV SCH (08:00)
[2020-07-16] MEDS ORDERED: POTASSIUM CHLORIDE INJ 40 MEQ in SODIUM CHLORIDE 0.9% 500 ML IV ONE (09:00)
[2020-07-16] MEDS: PHENobarbitaL 32.4 MG TABLET PO SCH ×2 (09:21→21:18)
[2020-07-16] MEDS: MULTIVITAMIN 10 ML, FOLIC ACID INJ 1 MG, THIAMINE INJ 100 MG, MAGNESIUM SULFATE 2 GM in... IV SCH ×5 (10:23)
--- NOTE | 2020-07-16 11:19 | PHARMACY PROGRESS NOTE ---
- Best Possible Medication History Admit Date and Time: 07/15/20 1404 Processed by: Pharmacy Medication History completed: Yes Patient Interview: Completed Secondary Source(s): Pharmacy records, Insurance records (PATIENT INTERVIEWED BY PHARMACY. PATIENT ABLE TO CONFIRM HOME MEDICATIONS ) As the person ultimately responsible for medication therapy, providers are able to order a medication from an existing home medication list in [facility] via the "Reconcile Routine" prior to Confirmation of that medication by product support rep. Such practice is discouraged except when the physician, in their clinical judgment, deems that a medical need exists for a medication without regard to previous use.
[2020-07-16 14:27] LABS: CALCIUM 7.5 mg/dL (8.5-10.3); CREATININE 0.7 mg/dL (0.6-1.2)
--- NOTE | 2020-07-16 21:15 | Ultrasound Report ---
PROCEDURE: Abdomen Complete INDICATIONS: hepatitis TECHNIQUE: Real-time scanning was performed of the abdominal and retroperitoneal organs, with image documentatio n. COMPARISON: None. FINDINGS: Liver: The liver is enlarged, measuring 24.2 cm in maximum dimension. There is diffuse increased echo genicity within the liver. Gallbladder: The gallbladder contains sludge. The gallbladder wall is thickened to 5 mm. No perichole cystic fluid is seen. Sonographic Navarrete sign is negative. Biliary ducts: Intrahepatic bile ducts are non-dilated. Extrahepatic bile duct caliber measures 5 m m. Normal is 6-7 mm or less in diameter, or 10 mm or less post-cholecystectomy. Pancreas: Not well visualized due to overlying bowel gas. Spleen: Spleen is normal in size and homogeneous in echotexture. Kidneys: Kidneys are normal in size and echotexture. Right kidney measures 12.1 cm long; left kidne y measures 12.3 cm long. No hydronephrosis or nephrolithiasis. No solid masses. A cyst in the righ t kidney measures up to 1.4 cm in diameter. Aorta: Visualized aorta is normal in caliber at less than 3 cm. IVC: Intrahepatic inferior vena cava is patent. Miscellaneous: No free abdominal fluid. IMPRESSION: 1. Sludge is seen within the gallbladder with mild gallbladder wall thickening. There is no perichol ecystic fluid. Sonographic Navarrete sign is negative. Findings are equivocal for acute cholecystitis, a nd clinical correlation is recommended. 2. Mild hepatomegaly and diffusely increased hepatic echogenicity are nonspecific, but most commonly encountered in the setting of hepatic steatosis. However, other causes of hepatocellular disease are not excluded. Reviewed by: Harpal Soto MD on 07/16/2020 9:13 PM PDT Approved by: Harpal Soto MD on 07/16/2020 9:13 PM PDT Station ID: [id number]
[2020-07-16] MEDS ORDERED: METOPROLOL SUCCINATE 50 MG TABLET PO STA (21:39)
[2020-07-17] MEDS: SODIUM CHLORIDE FLUSH 0.9% 10 ML SYRINGE IVP SCH ×3 (00:35→17:41)
[2020-07-17] MEDS: LORazepam 2 MG/ML VIAL IVP PRN ×2 (01:39→03:50)
[2020-07-17] MEDS ORDERED: LORazepam 2 MG/ML VIAL IVP STA (02:32)
[2020-07-17] MEDS ORDERED: LORazepam 2 MG/ML VIAL IVP PRN (04:07)
[2020-07-17] MEDS ORDERED: OLANZapine 10 MG VIAL IM ONE (04:29)
[2020-07-17] MEDS ORDERED: DEXMEDETOMIDINE 400 MCG/100 ML 100 ML IV PRN (04:41)
[2020-07-17] MEDS ORDERED: DEXTROSE 5% 50 ML IV ONE (04:47)
[2020-07-17 05:43] LABS: BASOPHILS % (AUTO) 0.8 %; EOSINOPHILS % (AUTO) 0.5 %; HGB - HEMOGLOBIN 12.5 g/dL (14.0-18.0); LYMPHOCYTES # (AUTO) 0.6 10^3/uL (1.5-3.5); LYMPHOCYTES % (AUTO) 15.6 %; MEAN CORPUSCULAR HEMOGLOBIN 32.7 pg (27.0-31.0); MEAN CORPUSCULAR HGB CONC 33.6 g/dL (32.0-36.0); MEAN CORPUSCULAR VOLUME 97.4 fL (80.0-94.0); MEAN PLATELET VOLUME 10.7 fL (7.4-11.4); MONOCYTES # (AUTO) 0.5 10^3/uL (0.0-1.0); MONOCYTES % (AUTO) 13.1 %; NEUTROPHILS # (AUTO) 2.7 10^3/uL (1.5-6.6); NEUTROPHILS % (AUTO) 69.2 %; PLT - PLATELET COUNT 47 10^3/uL (130-450); RED BLOOD COUNT 3.82 10^6/uL (4.70-6.10); RED CELL DISTRIBUTION WIDTH 14.8 % (12.0-15.0); WHITE BLOOD COUNT 3.9 x10^3/uL (4.8-10.8)
--- NOTE | 2020-07-17 05:45 | PROVIDER PROGRESS NOTE ---
Purchase Price Analyst Note - Purchase Price Analyst Note Purchase Price Analyst Note: Patient became increasingly agitated through out the course of the night. Initially his fixation was on the IV pole. His fluid was discontinued and the pole removed. While the pole was being removed it was noticed that he had ripped out his IV access. Prior to this he had been administered an extra dose of ativan 2mg IV 1hr prior to his next dose because he seemed restless. Shortly afterwards it was reported that he was making inappropriate gestures towards the nursing home administrator. Around 4:30 am a don thakur was called because his behavior was escalating. He was put in 4 point soft restraints and administered Zyprexa 5mg IM X1. Despite this he broke out of his restraint. Thus he was placed in locked restraints then transferred to the ICU for a precedex drip. Attempt to reach family have been unsuccessful. The number [phone] was answered by a man who did not introduce himself and promptly hung up.
[2020-07-17 06:03] LABS: ALBUMIN 3.5 g/dL (3.2-5.5); BILIRUBIN,DIRECT 1.5 mg/dL (0.1-0.5); BILIRUBIN,TOTAL 2.8 mg/dL (0.2-1.0); CALCIUM 7.7 mg/dL (8.5-10.3); CREATININE 0.6 mg/dL (0.6-1.2); MAGNESIUM 1.4 mg/dL (1.7-2.8); PHOSPHORUS 1.5 mg/dL (2.5-4.6); TOTAL PROTEIN 7.2 g/dL (6.7-8.2)
[2020-07-17] MEDS: LORazepam 100MG/100ML D5W 100 ML IV SCH ×2 (08:03→18:31)
[2020-07-17] MEDS ORDERED: METOPROLOL SUCCINATE 50 MG TABLET PO SCH (09:00)
[2020-07-17] MEDS: MULTIVITAMIN 10 ML, FOLIC ACID INJ 1 MG, THIAMINE INJ 100 MG, MAGNESIUM SULFATE 2 GM in... IV SCH ×5 (09:21)
[2020-07-17] MEDS: PHENobarbitaL 32.4 MG TABLET PO SCH (11:47)
--- NOTE | 2020-07-17 15:44 | PROVIDER PROGRESS NOTE ---
Subjective - Prog Note Date Prog Note Date: 07/17/20 Prog Note Time: 15:42 - Subjective Subjective: Very interesting scenario. This gentleman came in with seizures. Was postictal confused. The next day I saw him and he was awake, alert, chagrined. Main complaint was that of his tongue really hurting because he bit it so much. Was on tapering dose phenobarb by new protocol from ER. Was on alcohol withdrawal protocol. As the night progressed last night his alcohol withdrawal delirium became worse. He was ripping out his IV access. Made inappropriate gestures toward the nursing program coordinator. Then at 430 this morning a don howard was called. He is now in four-point restraints in the ICU. Had received Zyprexa. He was on the Precedex drip. In spite of that continues to be awake, alert, unhappy. When I going to see me he remembers me from yesterday. Tells me "I am all fucked up". I asked him what is going on and he tells me "I do not know". He says that he feels terrible. He is nauseated, shaky, sweaty. Keeps on telling me "I have got to stop drinking, I have got to stop drinking" Current Medications - Current Medications Current Medications: Active Medications Multivitamins 10 ml/ Folic Acid 1 mg/ Thiamine HCl 100 mg / Magnesium Sulfate 2 gm/Sodium Chloride 1,015.2 mls @ 100 mls/hr IV DAILY [facility] Last Admin: 07/17/20 09:21 Dose: 100 mls/hr Documented by: Lorazepam (Ativan) 100 mls @ 5 mls/hr IV .Q20H [facility]; Protocol Last Titration: 07/17/20 14:59 Dose: 5 mg/hr, 5 mls/hr Documented by: Potassium Chloride (Potassium Chloride) 10 meq in 100 mls @ 100 mls/hr IV Q1H [facility]; Protocol Stop: 07/17/20 19:59 Magnesium Sulfate (Magnesium Sulfate) 2 gm in 50 mls @ 50 mls/hr IV ONCE ONE; Protocol Stop: 07/17/20 16:35 Potassium Phosphate 21 mmol/ (Sodium Chloride) 257 mls @ 64 mls/hr IV ONCE ONE; Protocol Stop: 07/17/20 19:36 Metoprolol Succinate (Toprol Xl) 50 mg PO DAILY [facility] Last Admin: 07/17/20 11:47 Dose: Not Given Documented by: Multi-Ingredient Mouthwash/Gargle () 30 ml PO Q4H PRN PRN Reason: Mouth Sore Pain Ondansetron HCl (Zofran Odt) 4 mg TL Q6HR PRN PRN Reason: Nausea / Vomiting Ondansetron HCl (Zofran Inj) 4 mg IVP Q6HR PRN PRN Reason: Nausea / Vomiting Oxycodone HCl (Roxicodone) 5 mg PO Q4HR PRN PRN Reason: Pain 5 to 7 Phenobarbital () 32.4 mg PO BID [facility] Stop: 07/17/20 21:01 Last Admin: 07/17/20 11:47 Dose: Not Given Documented by: Phenobarbital () 32.4 mg PO QPM [facility] Stop: 07/19/20 21:01 Sodium Chloride (Normal Saline Flush 0.9%) 10 ml IVP PRN PRN PRN Reason: NEEDED PER PROVIDER ORDERS Sodium Chloride (Normal Saline Flush 0.9%) 10 ml IVP 0100,0900,1700 [facility] Last Admin: 07/17/20 08:18 Dose: 10 ml Documented by: Throat Lozenges (Cepacol) 1 lozenge MM Q2HR PRN PRN Reason: Throat pain Last Admin: 07/15/20 16:12 Dose: 1 lozenge Documented by: Hydrochlorothiazide 12.5 mg PO DAILY 12/02/19 Metoprolol Succinate 50 mg PO DAILY 07/16/20 Objective - Vital Signs/Intake & Output Reviewed Vital Signs: Yes Vital Signs: Vital Signs x48h Temp Pulse Resp BP BP Pulse Ox 07/17/20 15:32 36.5 C 07/17/20 15:00 98 24 124/88 H 94 07/17/20 14:00 93 25 H 134/92 H 97 07/17/20 13:00 88 17 96/64 100 07/17/20 12:00 37.4 C 92 27 H 111/70 93 07/17/20 11:00 93 23 121/81 H 96 07/17/20 10:00 87 98 07/17/20 09:15 92 21 113/69 98 07/17/20 09:00 91 22 112/72 100 07/17/20 08:45 97 18 100/80 99 09/21/20 08:27 97 27 H 99/64 99 07/17/20 08:10 96.9 C H 97 26 H 95/56 L 100 07/17/20 07:58 104 H 25 H 108/86 H 94 07/17/20 07:51 100 94/56 L 07/17/20 07:46 108 H 27 H 108/62 Intake & Output: Intake & Output 07/14/20 07/15/20 07/16/20 07/17/20 23:59 23:59 23:59 23:59 Intake Total 4597.283 4336.117 881.527 Output Total 350 2000 621 Balance 4247.283 2336.117 260.527 - Objective General Appearance: positive: Alert, Moderate distress (From delirium tremens. I am amazed that he remembers me and is trying to have a lucid conversation with me) Eyes Bilateral: positive: PERRL ENT: positive: Other (His tongue was black and blue yesterday. Difficult to distinguish what some of that meant and whether he had necrotic tissue. Some it was also howard. This morning he still continues to have the discoloration but the edema is less so that his speech is much less slurred.) Neck: positive: No JVD, Lymphadenopathy (R) (Shotty), Lymphadenopathy (L) (Shotty) Respiratory: positive: Chest non-tender. negative: Wheezes, Rales, Rhonchi Cardiovascular: positive: Regular rate & rhythm, Tachycardia. negative: Gallop/S4, Friction rub Abdomen: positive: Non-tender, No organomegaly, Nml bowel sounds, No distention Skin: positive: Warm, Diaphoresis Extremities: positive: Non-tender, Full ROM, No pedal edema Neurologic/Psychiatric: positive: Oriented x3 (But will have moments where he is completely disoriented. He does know where he is, why he is here and will fight the medical assistance with the nurses. Then he lapses back to being oriented and chagrined why he is here.), CN's nml (2-12), Slurred/abnml speech (from tongue bite is improving). negative: Motor nml (tremulous) - Lab Results Fish Bones: 07/17/20 05:30 07/17/20 05:30 Other Labs: Lab Results x24hrs 07/17/20 07/17/20 07/17/20 Range/Units 06:20 05:30 05:30 WBC 3.9 L (4.8-10.8) x10^3/uL RBC 3.82 L (4.70-6.10) 10^6/uL Hgb 12.5 L (14.0-18.0) g/dL Hct 37.2 L (42.0-52.0) % MCV 97.4 H (80.0-94.0) fL MCH 32.7 H (27.0-31.0) pg MCHC 33.6 (32.0-36.0) g/dL RDW 14.8 (12.0-15.0) % Plt Count 47 L (130-450) 10^3/uL MPV 10.7 (7.4-11.4) fL Neut # (Auto) 2.7 (1.5-6.6) 10^3/uL Lymph # (Auto) 0.6 L (1.5-3.5) 10^3/uL Craven # (Auto) 0.5 (0.0-1.0) 10^3/uL Eos # (Auto) 0.0 (0.0-0.7) 10^3/uL Baso # (Auto) 0.0 (0.0-0.1) 10^3/uL Absolute Nucleated RBC 0.02 x10^3/uL Nucleated RBC % 0.5 /100WBC Sodium 136 (135-145) mmol/L Potassium 3.3 L (3.5-5.0) mmol/L Chloride 102 (101-111) mmol/L Carbon Dioxide 22 (21-32) mmol/L Anion Gap 12.0 (6-13) BUN 7 (6-20) mg/dL Creatinine 0.6 (0.6-1.2) mg/dL Estimated GFR (MDRD) 148 (>89) Glucose 111 H (70-100) mg/dL Calcium 7.7 L (8.5-10.3) mg/dL Phosphorus 1.5 L (2.5-4.6) mg/dL Magnesium 1.4 L (1.7-2.8) mg/dL Total Bilirubin 2.8 H (0.2-1.0) mg/dL Direct Bilirubin 1.5 H (0.1-0.5) mg/dL AST 137 H (10-42) IU/L ALT 28 (10-60) IU/L Alkaline Phosphatase 94 (42-121) IU/L Total Protein 7.2 (6.7-8.2) g/dL Albumin 3.5 (3.2-5.5) g/dL Globulin 3.7 (2.1-4.2) g/dL Nasal Screen MRSA (PCR) NEGATIVE (NEGATIVE) Assessment/Plan - Problem List (1) Alcohol withdrawal Impression: Ativan drip has been ordered and will be started in ICU Restraints until his behavior is controllable and he is not a risk to himself or the staff Stop Precedex Continue CIWA protocol Banana bag with magnesium Continue with tapering off the phenobarb Social work is aware of his desire to do rehab. They have already given him some resources. Qualifiers: Complication of substance-induced condition: with unspecified complication Qualified Code(s): F10.239 - Alcohol dependence with withdrawal, unspecified (2) Alcohol related seizure Impression: 07/17: none since admit. we are treating the withdrawal to treat the seizures. 07/16: no further seizures since yesterday. No change in meds. continue CIWA and taper off phenobarb for withdrawal 07/15: According to Dr. Lorenzo's protocol, continue with phenobarb 60 mg p.o. twice daily the next day, then 30 mg p.o. twice daily for 1 day, then 30 mg a day for 2 days and be done. Again he stresses that this is more for the withdrawal part than the true seizure. The thought being that if you treat the alcohol withdrawal seizure disorder will tameka. Plan: I need to fill out a DMV form on this patient. He states that he is not driving after I reminded him that he was told not to drive but he had already a dmitted he was. Because withdrawal seizures do not recur if the patient remains absent, long-term administration of antiepileptic drug is unnecessary and abstinent patient. Since he is not being abstinent we may have to decide to have to put him on seizure medications. However, seizure medications combined with alcohol can lower seizure threshold. Will use CIWA and benzo for control. If another seizure occurs, CT head. (3) Tongue laceration Conclusion/Plan: 07/17: today his speech is clearer. Will continue to examine daily until no signs of necrosis seen 07/16:Tongue laceration lidocaine swish and spit with some Benadryl. I spoke to Dr. Lorenzo about the tongue laceration. He says is not much to do except to wait. I worry about necrotic tissue. But the patient does not have fever. The tissue looks bruised/black but is not coming apart. Plan: Continue to monitor and look for signs of necrosis or infection Qualifiers: Encounter type: initial encounter Qualified Code(s): S01.512A - Laceration without foreign body of oral cavity, initial encounter (4) Hypokalemia Conclusion/Plan: 07/17: Initiate ICU electrolyte replacement protocol. K is still low this am. 07/16: K is 3.4. Will supplement with liquid K 07/15: Supplemented p.o. and IV in the emergency room. Repeat potassium is 2.7. Will supplement with more K riders. (5) Alcoholic hepatitis Conclusion/Plan: 07/17: Bilirubin and liver enzymes are staying stable or improving. Ultrasound shows sludge within the gallbladder and mild gallbladder thickening. No pericholecystic fluid. Sonographic Navarrete sign is negative. Mild hepatomegaly and diffusely increased hepatic echogenicity nonspecific. Most commonly encountered in the settings of a hepatic steatosis. His acute hepatitis panel is still pending. 07/16:Tox screen negative for anything but benzodiazepines. Serology for hepatitis panel drawn and pending. Ultrasound requested for today. They seem to be backed up and it may not be done until later today or tomorrow. At this time the elevation of liver enzymes is classic in its ratio with AST to ALT. Tomorrow morning will have blood draw for acute hepatitis panel to rule out other causes of hepatitis.will also check US liver Qualifiers: Ascites presence: without ascites Qualified Code(s): K70.10 - Alcoholic hepatitis without ascites
[2020-07-17] MEDS ORDERED: MAGNESIUM SULFATE 2 GRAM 2 GM/50 ML BAG IV ONE (16:00)
[2020-07-17] MEDS ORDERED: POTASSIUM PHOSPHATE 21 MMOL in SODIUM CHLORIDE 0.9% 250 ML IV ONE ×2 (16:00→20:00)
[2020-07-17 16:02] LABS: VBG PH 7.402 (7.31-7.41)
[2020-07-17] MEDS: POTASSIUM CHLOR 10 MEQ/100 ML 10 MEQ/100 ML BAG IV SCH ×4 (16:17→19:35)
[2020-07-17] MEDS: LACTATED RINGERS 1,000 ML IV SCH (16:19)
[2020-07-17] MEDS: PANTOPRAZOLE 40 MG VIAL IVP SCH (17:46)
[2020-07-17] MEDS ORDERED: CALCIUM GLUCONATE 2,000 MG in SODIUM CHLORIDE 0.9% 100ML 100 ML IV ONE (18:00)
[2020-07-17 21:00] LABS: VBG PH 7.364 (7.31-7.41)
[2020-07-18] MEDS: PHENobarbitaL 32.4 MG TABLET PO SCH ×2 (03:35→21:05)
[2020-07-18] MEDS: SODIUM CHLORIDE FLUSH 0.9% 10 ML SYRINGE IVP SCH ×3 (03:36→17:24)
[2020-07-18 05:13] LABS: BASOPHILS # (AUTO) 0.1 10^3/uL (0.0-0.1); EOSINOPHILS % (AUTO) 0.4 %; HGB - HEMOGLOBIN 12.4 g/dL (14.0-18.0); LYMPHOCYTES # (AUTO) 0.6 10^3/uL (1.5-3.5); MEAN CORPUSCULAR HEMOGLOBIN 32.9 pg (27.0-31.0); MEAN CORPUSCULAR HGB CONC 33.2 g/dL (32.0-36.0); MEAN CORPUSCULAR VOLUME 98.9 fL (80.0-94.0); MONOCYTES # (AUTO) 0.8 10^3/uL (0.0-1.0); MONOCYTES % (AUTO) 16.3 %; NEUTROPHILS # (AUTO) 3.4 10^3/uL (1.5-6.6); NEUTROPHILS % (AUTO) 68.7 %; PLT - PLATELET COUNT 88 10^3/uL (130-450); RED BLOOD COUNT 3.77 10^6/uL (4.70-6.10); RED CELL DISTRIBUTION WIDTH 15.9 % (12.0-15.0); WHITE BLOOD COUNT 4.9 x10^3/uL (4.8-10.8)
[2020-07-18 05:23] LABS: ALBUMIN 3.2 g/dL (3.2-5.5); CALCIUM 8.1 mg/dL (8.5-10.3); CREATININE 0.4 mg/dL (0.6-1.2); MAGNESIUM 1.7 mg/dL (1.7-2.8); PHOSPHORUS 3.9 mg/dL (2.5-4.6)
[2020-07-18] MEDS: POTASSIUM CHLOR 10 MEQ/100 ML 10 MEQ/100 ML BAG IV SCH ×4 (06:30→09:43)
[2020-07-18] MEDS: PANTOPRAZOLE 40 MG VIAL IVP SCH (06:41)
[2020-07-18] MEDS ORDERED: ACETAMINOPHEN 1,000 MG/100 ML 100 ML IV ONE (08:33)
[2020-07-18] MEDS: LACTATED RINGERS 1,000 ML IV SCH ×4 (08:45→17:23)
[2020-07-18] MEDS: METOPROLOL 5 MG/5 ML VIAL IVP SCH ×3 (09:02→22:15)
--- NOTE | 2020-07-18 09:05 | XRAY Report ---
PROCEDURE: Chest 1 View X-Ray INDICATIONS: fever, sedated TECHNIQUE: One view of the chest was acquired. COMPARISON: None. FINDINGS: Surgical changes and devices: None. Lungs and pleura: Diffuse interstitial prominence. No focal consolidation. Lung volumes are diminishe d bilaterally. No pneumothorax or pleural effusion. Mediastinum: A candidate for patient positioning and rotation, cardiomediastinal contours appear with in normal limits. Heart size is normal. Bones and chest wall: No suspicious bony lesions. Overlying soft tissues appear unremarkable. IMPRESSION: Diffuse interstitial prominence without focal consolidation. Findings may be related to atelectasis g iven decreased lung volumes versus infectious/inflammatory process. Early pulmonary edema may have a similar appearance if clinically appropriate. Reviewed by: Kenney Zamora MD on 07/18/2020 9:04 AM PDT Approved by: Kenney Zamora MD on 07/18/2020 9:04 AM PDT Station ID: [id number]
[2020-07-18 09:06] LABS: GLUCOSE, URINE (UA) NEGATIVE (NEGATIVE); KETONES,URINE (UA) >=80 mg/dL (NEGATIVE); LEUKOCYTE ESTERASE, URINE NEGATIVE (NEGATIVE); NITRITE,URINE NEGATIVE (NEGATIVE); OCCULT BLOOD,URINE SMALL (NEGATIVE); PH,URINE 5.5 PH (5.0-7.5); PROTEIN,URINE TRACE mg/dL (NEGATIVE); UROBILINOGEN,URINE 4 E.U./dL (NORMAL)
[2020-07-18 09:25] LABS: BACTERIA,URINE None Seen /HPF (None Seen); BILIRUBIN,URINE MODERATE (NEGATIVE); CLARITY,URINE CLEAR (CLEAR); ICTOTEST,URINE POSITIVE; RBC,URINE 0-5 /HPF (0-5); SQUAMOUS EPITHELIAL CELL,UR NONE SEEN (<= Few)
[2020-07-18] MEDS: LORazepam 100MG/100ML D5W 100 ML IV SCH ×2 (09:42→23:38)
[2020-07-18] MEDS: MULTIVITAMIN 10 ML, FOLIC ACID INJ 1 MG, THIAMINE INJ 100 MG, MAGNESIUM SULFATE 2 GM in... IV SCH ×5 (09:47)
[2020-07-18 12:41] LABS: HEPATITIS A IGM NON-REACTIVE (NON-REACTIVE); HEPATITIS B SURFACE ANTIGEN NON-REACTIVE (NON-REACTIVE); HEPATITIS C ANTIBODY NON-REACTIVE (NON-REACTIVE)
[2020-07-18] MEDS: AMPICILLIN/SULBACTAM 3 GM in SODIUM CHLORIDE 0.9% MINIBAG 100 ML IV SCH ×3 (12:50→23:57)
[2020-07-18] MEDS: SODIUM CHLORIDE FLUSH 0.9% 10 ML SYRINGE IVP PRN (13:24)
[2020-07-18] MEDS: CHLORHEXIDINE GLUCONATE 15 ML UDC PO SCH ×2 (14:00→21:04)
--- NOTE | 2020-07-18 16:53 | PROVIDER PROGRESS NOTE ---
Assessment/Plan - Problem List (1) Fever Assessment/Plan: CXR showed poss fluid vs atelectasis. Will obtain a blood cx, U/A with cx if indicated and request eval of jhon gaston, from yoh-[id number]-npbinj surgeon, Dr Grant. Will start empiric Unasyn , as per Dr Grant phone conversation. Follow CBC (2) Alcohol related seizure Assessment/Plan: 07/18: No seizures since admission Weaning Phenobarb to off 07/17: none since admit. we are treating the withdrawal to treat the seizures. 07/16: no further seizures since yesterday. No change in meds. continue CIWA and taper off phenobarb for withdrawal 07/15: According to Dr. Lorenzo's protocol, continue with phenobarb 60 mg p.o. twice daily the next day, then 30 mg p.o. twice daily for 1 day, then 30 mg a day for 2 days and be done. Again he stresses that this is more for the withdrawal part than the true seizure. The thought being that if you treat the alcohol withdrawal seizure disorder will tameka. Fill out a DMV form on this patient. He states that he is not driving after I reminded him that he was told not to drive but he had already admitted he was. Because withdrawal seizures do not recur if the patient remains absent, long- term administration of antiepileptic drug is unnecessary in an abstinent patient. Since he is not being abstinent we may have to decide to have to put him on seizure medications. However, seizure medications combined with alcohol can lower seizure threshold. Contyinue CIWA and Ativan drip for control. If another seizure occurs, CT head. (3) Alcohol withdrawal Assessment/Plan: Ativan drip has been ordered and he is sedated in ICU Restraints were needed, stopped now. Continue CIWA protocol Banana bag iv daily with magnesium Continue with tapering off the phenobarb Social work is aware of his desire to do rehab. They have already given him some resources. (4) Alcoholic hepatitis Assessment/Plan: 07/18: LFTs are slowly improving. Follow CMP daily 07/17: Bilirubin and liver enzymes are staying stable or improving. Ultrasound shows sludge within the gallbladder and mild gallbladder thickening. No pericholecystic fluid. Sonographic Navarrete sign is negative. Mild hepatomegaly and diffusely increased hepatic echogenicity nonspecific. Most commonly encountered in the settings of a hepatic steatosis. His acute hepatitis panel is still pending. 07/16:Tox screen negative for anything but benzodiazepines. Serology for hepatitis panel drawn and pending. Ultrasound requested for today. They seem to be backed up and it may not be done until later today or tomorrow. (5) Tongue laceration Qualifiers: Qualified Code(s): S01.512A - Laceration without foreign body of oral cavity, initial encounter Assessment/Plan: 07/18: Today he is all day sedated. Will request [id number] surg consult w/ Dr Bárbara Grant (?cause of fever). Continue to monitor and look for signs of necrosis or infection 07/17: today his speech is clearer. Will continue to examine daily until no signs of necrosis seen 07/16:Tongue laceration lidocaine swish and spit with some Benadryl. I spoke to Dr. Lorenzo about the tongue laceration. He says is not much to do except to wait. I worry about necrotic tissue. But the patient does not have fever. The tissue looks bruised/black but is not coming apart. (6) Hypokalemia Assessment/Plan: 07/18: Continue ICU electrolyte replacement protocol 07/17: Initiate ICU electrolyte replacement protocol. K is still low this am. 07/16: K is 3.4. Will supplement with liquid K 07/15: Supplemented p.o. and IV in the emergency room. Repeat potassium is 2.7. Will supplement with more K riders. - Current Meds Current Meds: Current Medications Generic Name Dose Route Start Last Admin Trade Name Salazar PRN Reason Stop Dose Admin Chlorhexidine Gluconate 15 ml 07/18/20 12:00 07/18/20 14:00 Peridex PO 15 ml BID PARKER Administration Multivitamins 10 ml/ Folic 1,015.2 mls @ 100 mls/hr 07/16/20 09:00 07/18/20 09:47 Acid 1 mg/ Thiamine HCl 100 mg IV 100 mls/hr / Magnesium Sulfate 2 gm/ DAILY PARKER Administration Sodium Chloride Lorazepam 100 mls @ 5 mls/hr 07/17/20 08:00 07/18/20 09:42 Ativan IV 6 mg/hr .Q20H PARKER 6 mls/hr Administration Protocol 5 MG/HR Lactated Ringer's 1,000 mls @ 100 mls/hr 07/17/20 16:00 07/18/20 13:25 Lr IV 100 mls/hr .Q10H PARKER Administration Ampicillin Sodium/Sulbactam 100 mls @ 200 mls/hr 07/18/20 12:00 07/18/20 13:28 Sodium 3 gm/ Sodium Chloride IV Infused Q6HR PARKER Infusion Metoprolol Tartrate 5 mg 07/18/20 08:35 07/18/20 16:25 Lopressor Inj IVP 5 mg Q8HR PARKER Administration Pantoprazole Sodium 40 mg 07/17/20 18:00 07/18/20 06:41 Protonix IVP 40 mg QDAC PARKER Administration Sodium Chloride 10 ml 07/15/20 14:04 07/18/20 13:24 Normal Saline Flush 0.9% IVP 10 ml PRN PRN Administration NEEDED PER PROVIDER ORDERS Sodium Chloride 10 ml 07/15/20 17:00 07/18/20 07:43 Normal Saline Flush 0.9% IVP 10 ml 0100,0900,1700 PARKER Administration - Lab Result Fish Bone Diagrams: 07/18/20 04:44 07/18/20 04:44 - Additional Planning My Orders: My Active Orders 07/18/20 Consult [General Surgery Consult] [CONS] Routine 07/18/20 08:29 DIET [NPO except Meds] [DIET] 07/18/20 08:35 Metoprolol Inj [Lopressor Inj] 5 mg IVP Q8HR 07/18/20 09:20 Turn and Reposition [RC] PRN Turn, Cough and Deep Breathe [RC] Q4HR 07/18/20 09:26 CULTURE, BLOOD #1 [RM] Stat 07/18/20 12:00 Ampicillin/Sulbactam [Unasyn] 3 gm Sodium Chloride 0.9% Minibag [Normal Saline 0.9% Minibag] 100 ml IV Q6HR Chlorhexidine [Peridex] 15 ml PO BID Subjective - Subjective Patient Reports: Other (Sedated) Objective Vital Signs: Vital Signs - 24 hr 07/17/20 07/17/20 07/17/20 17:00 18:00 19:00 Temperature 37.4 C Heart Rate [ 97 94 97 Monitoring electrodes] Respiratory 21 26 H 21 Rate Blood Pressure Blood Pressure [Left Ankle] Blood Pressure 135/89 H 93/57 L 109/83 H [Right Brachial artery] O2 Saturation 98 93 97 07/17/20 07/17/20 07/17/20 20:00 21:17 22:00 Temperature Heart Rate [ 97 96 99 Monitoring electrodes] Respiratory 27 H 22 22 Rate Blood Pressure Blood Pressure [Left Ankle] Blood Pressure 99/74 115/91 H 124/83 H [Right Brachial artery] O2 Saturation 88 L 100 99 07/17/20 07/18/20 07/18/20 23:00 00:00 01:00 Temperature 37.2 C 37.2 C Heart Rate [ 97 105 H 103 H Monitoring electrodes] Respiratory 33 H 22 24 Rate Blood Pressure Blood Pressure [Left Ankle] Blood Pressure 120/88 H 112/81 H 145/87 H [Right Brachial artery] O2 Saturation 94 95 93 07/18/20 07/18/20 07/18/20 02:00 03:00 04:00 Temperature Heart Rate [ 117 H 105 H 116 H Monitoring electrodes] Respiratory 29 H 33 H 24 Rate Blood Pressure Blood Pressure [Left Ankle] Blood Pressure 149/97 H 156/99 H 152/86 H [Right Brachial artery] O2 Saturation 96 95 95 07/18/20 07/18/20 07/18/20 05:00 06:00 07:00 Temperature Heart Rate [ 109 H 107 H 106 H Monitoring electrodes] Respiratory 27 H 27 H 19 Rate Blood Pressure Blood Pressure [Left Ankle] Blood Pressure 135/88 H 140/93 H 154/104 H [Right Brachial artery] O2 Saturation 96 96 96 07/18/20 07/18/20 07/18/20 07:04 08:00 09:00 Temperature 38.6 C H Heart Rate [ 123 H 131 H Monitoring electrodes] Respiratory 28 H 26 H Rate Blood Pressure Blood Pressure 173/100 H [Left Ankle] Blood Pressure 155/106 H 119/93 H [Right Brachial artery] O2 Saturation 95 95 07/18/20 07/18/20 07/18/20 09:02 09:20 09:35 Temperature Heart Rate [ 107 H 112 H Monitoring electrodes] Respiratory Rate Blood Pressure 130/86 H Blood Pressure [Left Ankle] Blood Pressure 156/106 H 148/100 H [Right Brachial artery] O2 Saturation 07/18/20 07/18/20 07/18/20 09:41 09:54 10:00 Temperature Heart Rate [ 114 H 115 H 112 H Monitoring electrodes] Respiratory 24 Rate Blood Pressure Blood Pressure [Left Ankle] Blood Pressure 152/95 H 137/81 H 133/91 H [Right Brachial artery] O2 Saturation 95 07/18/20 07/18/20 07/18/20 11:00 12:00 12:58 Temperature 37.4 C 36.6 C Heart Rate [ 108 H 102 H 104 H Monitoring electrodes] Respiratory 22 21 23 Rate Blood Pressure Blood Pressure [Left Ankle] Blood Pressure 127/90 H 105/72 109/78 [Right Brachial artery] O2 Saturation 96 95 95 07/18/20 07/18/20 07/18/20 14:00 15:00 16:00 Temperature 38 C H Heart Rate [ 97 106 H 106 H Monitoring electrodes] Respiratory 27 H 27 H 29 H Rate Blood Pressure Blood Pressure [Left Ankle] Blood Pressure 130/104 H 127/95 H 138/94 H [Right Brachial artery] O2 Saturation 98 92 93 07/18/20 16:25 Temperature Heart Rate [ Monitoring electrodes] Respiratory Rate Blood Pressure 126/90 H Blood Pressure [Left Ankle] Blood Pressure [Right Brachial artery] O2 Saturation Oxygen O2 Source Room air I&O (Last 24 Hrs): Intake and Output Totals x24h 07/16/20 07/17/20 07/18/20 23:59 23:59 23:59 Intake Total 4336.117 2539.100 1607.999 Output Total 1999 1008 1398 Balance 2336.117 1531.100 209.999 General: Other (Sedated) HEENT: Mucous membr. moist/pink, Other (Disheveled, unkempt skin) Neuro: Other (sedated) Cardiovascular: Regular rate Respiratory: No respiratory distress Abdomen: Soft Extremities: No edema - Results Results: Laboratory Results WBC 4.9 x10^3/uL (4.8-10.8) 07/18/20 04:44 RBC 3.77 10^6/uL (4.70-6.10) L 07/18/20 04:44 Hgb 12.4 g/dL (14.0-18.0) L 07/18/20 04:44 Hct 37.3 % (42.0-52.0) L 07/18/20 04:44 MCV 98.9 fL (80.0-94.0) H 07/18/20 04:44 MCH 32.9 pg (27.0-31.0) H 07/18/20 04:44 MCHC 33.2 g/dL (32.0-36.0) 07/18/20 04:44 RDW 15.9 % (12.0-15.0) H 07/18/20 04:44 Plt Count 88 10^3/uL (130-450) L 07/18/20 04:44 MPV 10.0 fL (7.4-11.4) 07/18/20 04:44 Neut # (Auto) 3.4 10^3/uL (1.5-6.6) 07/18/20 04:44 Lymph # (Auto) 0.6 10^3/uL (1.5-3.5) L 07/18/20 04:44 [place] # (Auto) 0.8 10^3/uL (0.0-1.0) 07/18/20 04:44 Eos # (Auto) 0.0 10^3/uL (0.0-0.7) 07/18/20 04:44 Baso # (Auto) 0.1 10^3/uL (0.0-0.1) 07/18/20 04:44 Absolute Nucleated RBC 0.00 x10^3/uL 07/18/20 04:44 Nucleated RBC % 0.0 /100WBC 07/18/20 04:44 PT 15.9 secs (9.9-12.6) H 07/15/20 04:55 INR 1.5 (0.8-1.2) H 07/15/20 04:55 APTT 30.6 secs (24.9-33.3) 07/15/20 04:55 VBG pH 7.364 (7.31-7.41) 07/17/20 20:50 Ionized Calcium 1.09 mmol/L (1.15-1.33) L 07/17/20 20:50 Sodium 139 mmol/L (135-145) 07/18/20 04:44 Potassium 3.1 mmol/L (3.5-5.0) L 07/18/20 04:44 Chloride 106 mmol/L (101-111) 07/18/20 04:44 Carbon Dioxide 18 mmol/L (21-32) L 07/18/20 04:44 Anion Gap 15.0 (6-13) H 07/18/20 04:44 BUN 7 mg/dL (6-20) 07/18/20 04:44 Creatinine 0.4 mg/dL (0.6-1.2) L 07/18/20 04:44 Estimated GFR (MDRD) 237 (>89) 07/18/20 04:44 Glucose 91 mg/dL (70-100) 07/18/20 04:44 Calcium 8.1 mg/dL (8.5-10.3) L 07/18/20 04:44 Phosphorus 3.9 mg/dL (2.5-4.6) 07/18/20 04:44 Magnesium 1.7 mg/dL (1.7-2.8) 07/18/20 04:44 Total Bilirubin 2.8 mg/dL (0.2-1.0) H 07/17/20 05:30 Direct Bilirubin 1.5 mg/dL (0.1-0.5) H 07/17/20 05:30 AST 137 IU/L (10-42) H 07/17/20 05:30 ALT 28 IU/L (10-60) 07/17/20 05:30 Alkaline Phosphatase 94 IU/L (42-121) 07/17/20 05:30 Total Protein 7.2 g/dL (6.7-8.2) 07/17/20 05:30 Albumin 3.2 g/dL (3.2-5.5) 07/18/20 04:44 Globulin 3.7 g/dL (2.1-4.2) 07/17/20 05:30 Albumin/Globulin Ratio 0.9 (1.0-2.2) L 07/15/20 14:04 Lipase 50 U/L (22-51) 07/18/20 04:44 Urine Color DARK YELLOW 07/18/20 08:48 Urine Clarity CLEAR (CLEAR) 07/18/20 08:48 Urine pH 5.5 PH (5.0-7.5) 07/18/20 08:48 Ur Specific Willard 1.025 (1.002-1.030) 07/18/20 08:48 Urine Protein TRACE mg/dL (NEGATIVE) 07/18/20 08:48 Urine Glucose (UA) NEGATIVE mg/dL (NEGATIVE) 07/18/20 08:48 Urine Ketones >=80 mg/dL (NEGATIVE) H 07/18/20 08:48 Urine Occult Blood SMALL (NEGATIVE) H 07/18/20 08:48 Urine Nitrite NEGATIVE (NEGATIVE) 07/18/20 08:48 Urine Bilirubin MODERATE (NEGATIVE) H 07/18/20 08:48 Urine Urobilinogen 4 E.U./dL (NORMAL) H 07/18/20 08:48 Ur Leukocyte Esterase NEGATIVE (NEGATIVE) 07/18/20 08:48 Urine RBC 0-5 /HPF (0-5) 07/18/20 08:48 Urine WBC 0-3 /HPF (0-3) 07/18/20 08:48 Ur Squamous Epith Cells NONE SEEN (<= Few) 07/18/20 08:48 Urine Bacteria None Seen /HPF (None Seen) 07/18/20 08:48 Urine Culture Comments NOT INDICATED 07/18/20 08:48 Nasal Screen MRSA (PCR) NEGATIVE (NEGATIVE) 07/17/20 06:20 Urine Opiates Screen NEGATIVE (NEGATIVE) 07/15/20 08:51 Ur Oxycodone Screen NEGATIVE (NEGATIVE) 07/15/20 08:51 Urine Methadone Screen NEGATIVE (NEGATIVE) 07/15/20 08:51 Ur Propoxyphene Screen NEGATIVE (NEGATIVE) 07/15/20 08:51 Ur Barbiturates Screen NEGATIVE (NEGATIVE) 07/15/20 08:51 Ur Tricyclics Screen NEGATIVE (NEGATIVE) 07/15/20 08:51 Ur Phencyclidine Scrn NEGATIVE (NEGATIVE) 07/15/20 08:51 Ur Amphetamine Screen NEGATIVE (NEGATIVE) 07/15/20 08:51 U Methamphetamines Scrn NEGATIVE (NEGATIVE) 07/15/20 08:51 U Benzodiazepines Scrn POSITIVE (NEGATIVE) H 07/15/20 08:51 Urine Cocaine Screen NEGATIVE (NEGATIVE) 07/15/20 08:51 U Cannabinoids Screen NEGATIVE (NEGATIVE) 07/15/20 08:51 Ethyl Alcohol < 5.0 mg/dL 07/15/20 04:55 Hepatitis A IgM Ab NON-REACTIVE (NON-REACTIVE) 07/16/20 05:50 Hep Bs Antigen NON-REACTIVE (NON-REACTIVE) 07/16/20 05:50 Hep B Core IgM Ab NON-REACTIVE (NON-REACTIVE) 07/16/20 05:50 Hepatitis C Antibody NON-REACTIVE (NON-REACTIVE) 07/16/20 05:50 Hep C Ab Signal/Cutoff 0.00 (<1.00) 07/16/20 05:50
--- NOTE | 2020-07-18 19:32 | CONSULTATION NOTE ---
Referring Provider Name of Referring Provider:: Carla Josr Consult Date: 07/18/20 Chief Complaint - Chief Complaint Chief Complaint: Alcohol withdrawal History of Present Illness - History Obtained From Exam Limitations: The patient is sedated and unable to cooperate with exam. - History of Present Illness HPI Comment/Other: Jesus Alberto is admitted to the ICU for alcohol withdrawal. Four days ago he had seizures during the onset of his withdrawal during which he bit his tongue. His withdrawal is now managed with ativan. He has had fevers on and off during this hospitalization with a 24 hr tmax of 38.6. OMFS was consulted to evaluate is tongue lacerations, with concern that his tongue lacerations had become infected. History - Past Medical History Cardiovascular: reports: Hypertension Neuro: reports: Seizure disorder MRSA Hx?: No - Family & Social History Family History Comment/Other: Mom is in her 60s and and just had a stroke. Dad in his 40s of lupus. 2 siblings are healthy. 1 child is healthy Living arrangement: At home Living Situation: With friend(s) Social History Notes: He is from [place]. 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 He has been doing cannabis off and on all his life since about the age of 10. Drinking since the age of 18. He denies c ocaine, heroin, LSD use. Never . Lives with a roommate. Does have one child that he is not in contact with. - Substance History Dependence: Experiences withdrawal or developed tolerances: Alcohol Dependence Issues: Intoxication, Delirium, Hallucinations, Withdrawal - POLST Patient has POLST: No POLST Status: Full Code Meds/Allgy - Home Medications Home Medications: Ambulatory Orders Medication Instructions Recorded Confirmed Hydrochlorothiazide 12.5 mg PO DAILY 12/02/19 07/16/20 Metoprolol Succinate 50 mg PO DAILY 07/16/20 07/16/20 - Allergies Allergies/Adverse Reactions: Allergies Allergy/AdvReac Type Severity Reaction Status Date / Time No Known Drug Allergies Allergy Verified 07/15/20 04:53 Review of Systems - Constitutional Constitutional: reports: Other (Unable to obtain due to sedated) Exam - Vital Signs Reviewed Vital Signs: Yes Vital Signs: Vital Signs x48h Temp Pulse Resp BP BP Pulse Ox 07/18/20 19:00 38.3 C H 107 H 29 H 124/91 H 92 07/18/20 18:00 105 H 30 H 115/85 H 92 07/18/20 17:00 99 23 129/92 H 94 07/18/20 16:57 99 124/97 H 07/18/20 16:44 95 116/86 H 07/18/20 16:38 92 137/89 H 07/18/20 16:35 94 129/98 H 07/18/20 16:25 126/90 H 07/18/20 16:00 106 H 29 H 138/94 H 93 07/18/20 15:00 38 C H 106 H 27 H 127/95 H 92 07/18/20 14:00 97 27 H 130/104 H 98 07/18/20 12:58 36.6 C 104 H 23 109/78 95 07/18/20 12:00 37.4 C 102 H 21 105/72 95 - Physical Exam General Appearance: positive: Other (sedated. Can open eyes to his name being called and follow basic commands, like "stick out your tongue") Eyes Bilateral: positive: Other (Sclera normal. Gaze conjugate. Pupils ERRL) ENT: positive: Other (There is dried blood on his teeth. The occlusion is stable. There is FOM ecchymosis, the kind you would see if there was a mandibular symphysis fracture. Severe halitosis. Tongue protrudes midline, lac erations throughout, but with good soft tissue reduction. No drainage or fluctuance.) Neck: positive: Other (Mild bilateral cervical lymphadenopathy consistent with trauma) Respiratory: positive: Other (moderate partial obstruction, base of tongue) Cardiovascular: positive: Tachycardia Peripheral Pulses: positive: 2+ Skin: positive: Color nml Extremities: positive: Nml appearance, Other (Moving extremities spontaneous) Conclusion/Plan - Diagnosis Diagnosis: Tongue lacerations - Plan Plan: 39 yo M being treated for alcohol withdrawal, s/p seizures, sustaining tongue lacerations. - No tongue abscess. The edema of the tongue is consistent with his injuries. The ecchymosis of the floor of the mouth is secondary to his tongue lacera tions, neither his exam nor his mechanism are consistent with a fracture of the mandibular symphysis. - The severe halitosis is probably secondary to the blood in his mouth. - Fever of unclear origin. CXR from today did not show pneumonia. A tongue laceration, known to bleed severely, during a seizure makes aspiration pneumonia a possible etiology. Another possible etiology is neurogenic, or secondary to alcohol withdrawal. WBC remains normal, consistent with noninfectious etiology. Plan: No surgical intervention from OMFS standpoint. Tongue lacerations have spontaneously reduced without intervention. - Given the oral laceratons in the setting of poor hygiene and high wound contamination, suggest unasyn 3g q6h during the sedation and Augmentin 875 BID once able to take PO, for a total of 7 days of treatment. - Chlorhexidine mouthrinse swab BID, with special attention to the dorsum of the tongue - follow up in my clinic after discharge from the hospital to monitor healing of tongue lacerations and screen for occult oral injuries once the patient can cooperate with an exam [facility] [id number] Thank you for including me in Jesus Alberto's care. Please let me know if there is anything else I can do. Peyman Grant DDS [phone] - Lab Results Lab results reviewed: Yes Fish Bones: 07/18/20 04:44 07/18/20 04:44
[2020-07-19] MEDS ORDERED: ACETAMINOPHEN 1,000 MG/100 ML 100 ML IV ONE (00:16)
[2020-07-19] MEDS: LACTATED RINGERS 1,000 ML IV SCH ×2 (03:58→18:26)
[2020-07-19 05:32] LABS: BASOPHILS # (AUTO) 0.1 10^3/uL (0.0-0.1); BASOPHILS % (AUTO) 0.9 %; EOSINOPHILS # (AUTO) 0.1 10^3/uL (0.0-0.7); EOSINOPHILS % (AUTO) 0.9 %; HGB - HEMOGLOBIN 12.8 g/dL (14.0-18.0); LYMPHOCYTES # (AUTO) 1.3 10^3/uL (1.5-3.5); LYMPHOCYTES % (AUTO) 18.7 %; MEAN CORPUSCULAR HEMOGLOBIN 33.5 pg (27.0-31.0); MEAN CORPUSCULAR HGB CONC 33.7 g/dL (32.0-36.0); MEAN CORPUSCULAR VOLUME 99.5 fL (80.0-94.0); MEAN PLATELET VOLUME 11.1 fL (7.4-11.4); MONOCYTES # (AUTO) 1.3 10^3/uL (0.0-1.0); MONOCYTES % (AUTO) 18.9 %; NEUTROPHILS # (AUTO) 4.1 10^3/uL (1.5-6.6); NEUTROPHILS % (AUTO) 59.6 %; PLT - PLATELET COUNT 157 10^3/uL (130-450); RED BLOOD COUNT 3.82 10^6/uL (4.70-6.10); RED CELL DISTRIBUTION WIDTH 16.6 % (12.0-15.0); WHITE BLOOD COUNT 6.8 x10^3/uL (4.8-10.8)
[2020-07-19 05:42] LABS: CREATININE 0.5 mg/dL (0.6-1.2); MAGNESIUM 1.6 mg/dL (1.7-2.8); PHOSPHORUS 3.4 mg/dL (2.5-4.6)
[2020-07-19] MEDS ORDERED: MAGNESIUM SULFATE 2 GRAM 2 GM/50 ML BAG IV ONE (05:58)
[2020-07-19] MEDS: AMPICILLIN/SULBACTAM 3 GM in SODIUM CHLORIDE 0.9% MINIBAG 100 ML IV SCH ×3 (06:24→18:25)
[2020-07-19] MEDS: SODIUM CHLORIDE FLUSH 0.9% 10 ML SYRINGE IVP SCH ×3 (06:25→18:25)
[2020-07-19] MEDS: POTASSIUM CHLOR 10 MEQ/100 ML 10 MEQ/100 ML BAG IV SCH ×4 (06:33→12:25)
[2020-07-19] MEDS: METOPROLOL 5 MG/5 ML VIAL IVP SCH ×2 (06:38→13:54)
[2020-07-19] MEDS: PANTOPRAZOLE 40 MG VIAL IVP SCH (06:38)
[2020-07-19] MEDS: CHLORHEXIDINE GLUCONATE 15 ML UDC PO SCH ×2 (10:16→21:57)
[2020-07-19] MEDS: MULTIVITAMIN 10 ML, FOLIC ACID INJ 1 MG, THIAMINE INJ 100 MG, MAGNESIUM SULFATE 2 GM in... IV SCH ×5 (10:23)
[2020-07-19] MEDS: LORazepam 100MG/100ML D5W 100 ML IV SCH ×2 (11:40→21:59)
--- NOTE | 2020-07-19 11:52 | PROVIDER PROGRESS NOTE ---
Assessment/Plan - Problem List (1) Fever Assessment/Plan: He had a fever yesterday and also spiked a fever today to 38 degrees C. WBC is normal. Chest x-ray did not show infection, blood cultures are negative today, urinalysis unremarkable. This is likely from atelectasis related to being sedated. He was started on Unasyn empirically since the lacerated tongue was felt to be a possible source and will continue to this for 48 to 72 hours empirically. (2) Alcohol related seizure Assessment/Plan: No further seizures since admission (3) Alcohol withdrawal Assessment/Plan: Still scoring high on CIWA, is still on his Ativan IV drip. We will try decreasing to wean that to off tomorrow. Remain in ICU today (4) Alcoholic hepatitis Assessment/Plan: LFTs being followed daily, are improving, ever since alcohol abstinence since admission (5) Tongue laceration Qualifiers: Qualified Code(s): S01.512A - Laceration without foreign body of oral cavity, initial encounter Assessment/Plan: 3 Shieh consultation done by oral maxillofacial surgeon. Continue with topical mouth care. Empiric Unasyn has been started for this. Will give a 48 to 72-hour course. (6) Hypokalemia Assessment/Plan: Place with ICU protocol. Follow BMP daily. - Current Meds Current Meds: Current Medications Generic Name Dose Route Start Last Admin Trade Name Salazar PRN Reason Stop Dose Admin Chlorhexidine Gluconate 15 ml 07/18/20 12:00 07/19/20 10:16 Peridex PO 15 ml BID PARKER Administration Multivitamins 10 ml/ Folic 1,015.2 mls @ 100 mls/hr 07/16/20 09:00 07/19/20 10:23 Acid 1 mg/ Thiamine HCl 100 mg IV 100 mls/hr / Magnesium Sulfate 2 gm/ DAILY PARKER Administration Sodium Chloride Lorazepam 100 mls @ 5 mls/hr 07/17/20 08:00 07/19/20 11:40 Ativan IV 8 mg/hr .Q20H PARKER 8 mls/hr Administration Protocol 5 MG/HR Lactated Ringer's 1,000 mls @ 100 mls/hr 07/17/20 16:00 07/19/20 10:23 Lr IV 0 mls/hr .Q10H PARKER Infusion Ampicillin Sodium/Sulbactam 100 mls @ 200 mls/hr 07/18/20 12:00 07/19/20 06:54 Sodium 3 gm/ Sodium Chloride IV Infused Q6HR PARKER Infusion Metoprolol Tartrate 5 mg 07/18/20 08:35 07/19/20 06:38 Lopressor Inj IVP 5 mg Q8HR PARKER Administration Pantoprazole Sodium 40 mg 07/17/20 18:00 07/19/20 06:38 Protonix IVP 40 mg QDAC PARKER Administration Phenobarbital 32.4 mg 07/18/20 21:00 07/18/20 21:05 PO 07/19/20 21:01 Not Given QPM PARKER Sodium Chloride 10 ml 07/15/20 14:04 07/18/20 13:24 Normal Saline Flush 0.9% IVP 10 ml PRN PRN Administration NEEDED PER PROVIDER ORDERS Sodium Chloride 10 ml 07/15/20 17:00 07/19/20 10:23 Normal Saline Flush 0.9% IVP 10 ml 0100,0900,1700 PARKER Administration - Lab Result Fish Bone Diagrams: 07/19/20 04:40 07/19/20 04:40 - Additional Planning My Orders: My Active Orders 07/18/20 12:00 Ampicillin/Sulbactam [Unasyn] 3 gm Sodium Chloride 0.9% Minibag [Normal Saline 0.9% Minibag] 100 ml IV Q6HR Chlorhexidine [Peridex] 15 ml PO BID Subjective - Subjective Patient Reports: Other (sedated) Nursing Reports: Other (Still fidgety and jerking when his sedation is light) Objective Vital Signs: Vital Signs - 24 hr 07/18/20 07/18/20 07/18/20 12:00 12:58 14:00 Temperature 37.4 C 36.6 C Heart Rate [ 102 H 104 H 97 Monitoring electrodes] Respiratory 21 23 27 H Rate Blood Pressure Blood Pressure 105/72 109/78 130/104 H [Right Brachial artery] O2 Saturation 95 95 98 07/18/20 07/18/20 07/18/20 15:00 16:00 16:25 Temperature 38 C H Heart Rate [ 106 H 106 H Monitoring electrodes] Respiratory 27 H 29 H Rate Blood Pressure 126/90 H Blood Pressure 127/95 H 138/94 H [Right Brachial artery] O2 Saturation 92 93 07/18/20 07/18/20 07/18/20 16:35 16:38 16:44 Temperature Heart Rate [ 94 92 95 Monitoring electrodes] Respiratory Rate Blood Pressure Blood Pressure 129/98 H 137/89 H 116/86 H [Right Brachial artery] O2 Saturation 07/18/20 07/18/20 07/18/20 16:57 17:00 18:00 Temperature Heart Rate [ 99 99 105 H Monitoring electrodes] Respiratory 23 30 H Rate Blood Pressure Blood Pressure 124/97 H 129/92 H 115/85 H [Right Brachial artery] O2 Saturation 94 92 07/18/20 07/18/20 07/18/20 19:00 19:53 21:00 Temperature 38.3 C H 37.4 C Heart Rate [ 107 H 110 H 123 H Monitoring electrodes] Respiratory 29 H 24 36 H Rate Blood Pressure Blood Pressure 124/91 H 122/86 H 130/97 H [Right Brachial artery] O2 Saturation 92 94 96 07/18/20 07/18/20 07/18/20 22:00 22:15 23:00 Temperature Heart Rate [ 107 H 101 H Monitoring electrodes] Respiratory 35 H 26 H Rate Blood Pressure 150/100 H Blood Pressure 150/100 H 137/108 H [Right Brachial artery] O2 Saturation 92 96 07/19/20 07/19/20 07/19/20 00:00 01:00 02:00 Temperature 38.2 C H 37.6 C H 37.1 C Heart Rate [ 107 H 104 H 102 H Monitoring electrodes] Respiratory 27 H 34 H 22 Rate Blood Pressure Blood Pressure 148/118 H 156/111 H 146/108 H [Right Brachial artery] O2 Saturation 92 94 91 L 07/19/20 07/19/20 07/19/20 04:00 05:00 06:00 Temperature 37.4 C Heart Rate [ 101 H 106 H 103 H Monitoring electrodes] Respiratory 29 H 20 26 H Rate Blood Pressure Blood Pressure 131/94 H 151/104 H 151/95 H [Right Brachial artery] O2 Saturation 92 97 94 07/19/20 07/19/20 07/19/20 06:38 07:00 08:00 Temperature 38.0 C H Heart Rate [ 94 90 Monitoring electrodes] Respiratory 26 H 26 H Rate Blood Pressure 151/95 H Blood Pressure 140/102 H 151/101 H [Right Brachial artery] O2 Saturation 92 93 07/19/20 07/19/20 07/19/20 09:00 10:00 11:00 Temperature Heart Rate [ 97 105 H 105 H Monitoring electrodes] Respiratory 27 H 26 H 23 Rate Blood Pressure Blood Pressure 155/110 H 149/115 H 142/97 H [Right Brachial artery] O2 Saturation 96 92 97 Oxygen O2 Source Room air I&O (Last 24 Hrs): Intake and Output Totals x24h 07/17/20 07/18/20 07/19/20 23:59 23:59 23:59 Intake Total 2539.100 3295.083 2037.934 Output Total 1008 1908 1515 Balance 9147.050 8325.083 522.934 General: Other (sedated) HEENT: Other (eyes are closed) Neuro: Other (sedated) Cardiovascular: Regular rate Respiratory: No respiratory distress Abdomen: Soft Extremities: No edema - Results Results: Laboratory Results WBC 6.8 x10^3/uL (4.8-10.8) 07/19/20 04:40 RBC 3.82 10^6/uL (4.70-6.10) L 07/19/20 04:40 Hgb 12.8 g/dL (14.0-18.0) L 07/19/20 04:40 Hct 38.0 % (42.0-52.0) L 07/19/20 04:40 MCV 99.5 fL (80.0-94.0) H 07/19/20 04:40 MCH 33.5 pg (27.0-31.0) H 07/19/20 04:40 MCHC 33.7 g/dL (32.0-36.0) 07/19/20 04:40 RDW 16.6 % (12.0-15.0) H 07/19/20 04:40 Plt Count 157 10^3/uL (130-450) 07/19/20 04:40 MPV 11.1 fL (7.4-11.4) 07/19/20 04:40 Neut # (Auto) 4.1 10^3/uL (1.5-6.6) 07/19/20 04:40 Lymph # (Auto) 1.3 10^3/uL (1.5-3.5) L 07/19/20 04:40 [place] # (Auto) 1.3 10^3/uL (0.0-1.0) H 07/19/20 04:40 Eos # (Auto) 0.1 10^3/uL (0.0-0.7) 07/19/20 04:40 Baso # (Auto) 0.1 10^3/uL (0.0-0.1) 07/19/20 04:40 Absolute Nucleated RBC 0.00 x10^3/uL 07/19/20 04:40 Nucleated RBC % 0.0 /100WBC 07/19/20 04:40 PT 15.9 secs (9.9-12.6) H 07/15/20 04:55 INR 1.5 (0.8-1.2) H 07/15/20 04:55 APTT 30.6 secs (24.9-33.3) 07/15/20 04:55 VBG pH 7.364 (7.31-7.41) 07/17/20 20:50 Ionized Calcium 1.09 mmol/L (1.15-1.33) L 07/17/20 20:50 Sodium 140 mmol/L (135-145) 07/19/20 04:40 Potassium 3.4 mmol/L (3.5-5.0) L 07/19/20 04:40 Chloride 107 mmol/L (101-111) 07/19/20 04:40 Carbon Dioxide 21 mmol/L (21-32) 07/19/20 04:40 Anion Gap 12.0 (6-13) 07/19/20 04:40 BUN 5 mg/dL (6-20) L 07/19/20 04:40 Creatinine 0.5 mg/dL (0.6-1.2) L 07/19/20 04:40 Estimated GFR (MDRD) 183 (>89) 07/19/20 04:40 Glucose 96 mg/dL (70-100) 07/19/20 04:40 Calcium 8.0 mg/dL (8.5-10.3) L 07/19/20 04:40 Phosphorus 3.4 mg/dL (2.5-4.6) 07/19/20 04:40 Magnesium 1.6 mg/dL (1.7-2.8) L 07/19/20 04:40 Total Bilirubin 2.8 mg/dL (0.2-1.0) H 07/17/20 05:30 Direct Bilirubin 1.5 mg/dL (0.1-0.5) H 07/17/20 05:30 AST 137 IU/L (10-42) H 07/17/20 05:30 ALT 28 IU/L (10-60) 07/17/20 05:30 Alkaline Phosphatase 94 IU/L (42-121) 07/17/20 05:30 Total Protein 7.2 g/dL (6.7-8.2) 07/17/20 05:30 Albumin 3.2 g/dL (3.2-5.5) 07/19/20 04:40 Globulin 3.7 g/dL (2.1-4.2) 07/17/20 05:30 Albumin/Globulin Ratio 0.9 (1.0-2.2) L 07/15/20 14:04 Lipase 50 U/L (22-51) 07/18/20 04:44 Urine Color DARK YELLOW 07/18/20 08:48 Urine Clarity CLEAR (CLEAR) 07/18/20 08:48 Urine pH 5.5 PH (5.0-7.5) 07/18/20 08:48 Ur Specific [place] 1.025 (1.002-1.030) 07/18/20 08:48 Urine Protein TRACE mg/dL (NEGATIVE) 07/18/20 08:48 Urine Glucose (UA) NEGATIVE mg/dL (NEGATIVE) 07/18/20 08:48 Urine Ketones >=80 mg/dL (NEGATIVE) H 07/18/20 08:48 Urine Occult Blood SMALL (NEGATIVE) H 07/18/20 08:48 Urine Nitrite NEGATIVE (NEGATIVE) 07/18/20 08:48 Urine Bilirubin MODERATE (NEGATIVE) H 07/18/20 08:48 Urine Urobilinogen 4 E.U./dL (NORMAL) H 07/18/20 08:48 Ur Leukocyte Esterase NEGATIVE (NEGATIVE) 07/18/20 08:48 Urine RBC 0-5 /HPF (0-5) 07/18/20 08:48 Urine WBC 0-3 /HPF (0-3) 07/18/20 08:48 Ur Squamous Epith Cells NONE SEEN (<= Few) 07/18/20 08:48 Urine Bacteria None Seen /HPF (None Seen) 07/18/20 08:48 Urine Culture Comments NOT INDICATED 07/18/20 08:48 Nasal Screen MRSA (PCR) NEGATIVE (NEGATIVE) 07/17/20 06:20 Urine Opiates Screen NEGATIVE (NEGATIVE) 07/15/20 08:51 Ur Oxycodone Screen NEGATIVE (NEGATIVE) 07/15/20 08:51 Urine Methadone Screen NEGATIVE (NEGATIVE) 07/15/20 08:51 Ur Propoxyphene Screen NEGATIVE (NEGATIVE) 07/15/20 08:51 Ur Barbiturates Screen NEGATIVE (NEGATIVE) 07/15/20 08:51 Ur Tricyclics Screen NEGATIVE (NEGATIVE) 07/15/20 08:51 Ur Phencyclidine Scrn NEGATIVE (NEGATIVE) 07/15/20 08:51 Ur Amphetamine Screen NEGATIVE (NEGATIVE) 07/15/20 08:51 U Methamphetamines Scrn NEGATIVE (NEGATIVE) 07/15/20 08:51 U Benzodiazepines Scrn POSITIVE (NEGATIVE) H 07/15/20 08:51 Urine Cocaine Screen NEGATIVE (NEGATIVE) 07/15/20 08:51 U Cannabinoids Screen NEGATIVE (NEGATIVE) 07/15/20 08:51 Ethyl Alcohol < 5.0 mg/dL 07/15/20 04:55 Hepatitis A IgM Ab NON-REACTIVE (NON-REACTIVE) 07/16/20 05:50 Hep Bs Antigen NON-REACTIVE (NON-REACTIVE) 07/16/20 05:50 Hep B Core IgM Ab NON-REACTIVE (NON-REACTIVE) 07/16/20 05:50 Hepatitis C Antibody NON-REACTIVE (NON-REACTIVE) 07/16/20 05:50 Hep C Ab Signal/Cutoff 0.00 (<1.00) 07/16/20 05:50
--- NOTE | 2020-07-19 21:45 | ED Physician Documentation ---
ED Addendum - Addendum Addendum: 07/19/20 21:42 Patient care assumed by me. He was having some general weakness and ins tability/inblanace with walking. Withdrawal symptoms were improved but still present mildly. CIWA was lower than presentation. However he was unable to walk. I felt he needed more prolonged treatment so talked with hospitalist.
[2020-07-19] MEDS: PHENobarbitaL 32.4 MG TABLET PO SCH (21:57)
[2020-07-20] MEDS: METOPROLOL 5 MG/5 ML VIAL IVP SCH ×4 (01:34→21:32)
[2020-07-20] MEDS: AMPICILLIN/SULBACTAM 3 GM in SODIUM CHLORIDE 0.9% MINIBAG 100 ML IV SCH ×4 (01:34→17:32)
[2020-07-20] MEDS: SODIUM CHLORIDE FLUSH 0.9% 10 ML SYRINGE IVP SCH ×3 (01:35→17:32)
[2020-07-20] MEDS: PANTOPRAZOLE 40 MG VIAL IVP SCH (06:44)
[2020-07-20] MEDS: MULTIVITAMIN 10 ML, FOLIC ACID INJ 1 MG, THIAMINE INJ 100 MG, MAGNESIUM SULFATE 2 GM in... IV SCH ×5 (08:33)
[2020-07-20] MEDS: hydrALAZINE INJ 20 MG/ML VIAL IVP PRN ×2 (09:10→15:32)
[2020-07-20] MEDS ORDERED: LORazepam 2 MG/ML VIAL IVP PRN (09:21)
[2020-07-20] MEDS: CHLORHEXIDINE GLUCONATE 15 ML UDC PO SCH ×2 (09:26→21:32)
[2020-07-20 09:41] LABS: CALCIUM 8.4 mg/dL (8.5-10.3); MAGNESIUM 1.6 mg/dL (1.7-2.8); PHOSPHORUS 4.1 mg/dL (2.5-4.6)
[2020-07-20] MEDS ORDERED: MAGNESIUM SULFATE 2 GRAM 2 GM/50 ML BAG IV ONE (09:58)
[2020-07-20] MEDS: POTASSIUM CHLOR 10 MEQ/100 ML 10 MEQ/100 ML BAG IV SCH ×4 (11:28→14:39)
[2020-07-20] MEDS: polyethylene glycoL 3350 17 GM PACKET PO SCH (13:39)
--- NOTE | 2020-07-20 16:28 | PROVIDER PROGRESS NOTE ---
Assessment/Plan - Problem List (1) Alcohol withdrawal Assessment/Plan: He has been on IV Ativan for 2 days, will begin a rapid weaning process to off today in order to allow him to awaken as he is not tremulous anymore and communicative intermittently. Start with clear diet advance to pure, not further than that because of the tongue laceration. Will transition his banana bag to oral vitamins and thiamine. Social work has already spoken to him before florid withdrawal, that he requests inpatient alcohol detox. (2) Fever Assessment/Plan: He continues to have low-grade fever 37.9. The only source that seems obvious is the lacerated tongue and he was put on IV Unasyn for this and getting Peridex oral care with swabs. This will be advanced to swish and swallow when he is more awake. Urine cultures were negative and blood cultures are negative to date. (3) Alcoholic hepatitis Assessment/Plan: Tees are improving daily. (4) Tongue laceration Qualifiers: Qualified Code(s): S01.512A - Laceration without foreign body of oral cavity, initial encounter Assessment/Plan: He was put on empiric Unasyn. He is getting oral mouth care aggressively while in the ICU. His diet is only clear liquids to advance to pure because of the pain and swelling of the tongue (5) Hypokalemia Assessment/Plan: Correct with ICU electrolyte protocol. Follow BMP day (6) Alcohol related seizure Assessment/Plan: None further since admission - Current Meds Current Meds: Current Medications Generic Name Dose Route Start Last Admin Trade Name Freq PRN Reason Stop Dose Admin Chlorhexidine Gluconate 15 ml 07/18/20 12:00 07/20/20 09:26 Peridex PO 15 ml BID PARKER Administration Hydralazine HCl 10 mg 07/20/20 08:46 07/20/20 15:32 Apresoline Inj IVP 10 mg Q6H PRN Administration Hypertensive Emergency Multivitamins 10 ml/ Folic 1,015.2 mls @ 100 mls/hr 07/16/20 09:00 07/20/20 08:33 Acid 1 mg/ Thiamine HCl 100 mg IV 100 mls/hr / Magnesium Sulfate 2 gm/ DAILY PARKER Administration Sodium Chloride Lorazepam 100 mls @ 5 mls/hr 07/17/20 08:00 07/20/20 11:31 Ativan IV Infused .Q20H PARKER Titration Protocol 5 MG/HR Lactated Ringer's 1,000 mls @ 100 mls/hr 07/17/20 16:00 07/20/20 15:00 Lr IV 100 mls/hr .Q10H PARKER Infusion Ampicillin Sodium/Sulbactam 100 mls @ 200 mls/hr 07/18/20 12:00 07/20/20 12:28 Sodium 3 gm/ Sodium Chloride IV Infused Q6HR PARKER Infusion Metoprolol Tartrate 5 mg 07/18/20 08:35 07/20/20 13:42 Lopressor Inj IVP 5 mg Q8HR PARKER Administration Ondansetron HCl 4 mg 07/15/20 14:04 07/20/20 13:36 Zofran Inj IVP 4 mg Q6HR PRN Administration Nausea / Vomiting Pantoprazole Sodium 40 mg 07/17/20 18:00 07/20/20 06:44 Protonix IVP 40 mg QDAC PARKER Administration Polyethylene Glycol 17 gm 07/20/20 13:00 07/20/20 13:39 Miralax PO 17 gm DAILY PARKER Administration Sodium Chloride 10 ml 07/15/20 14:04 07/18/20 13:24 Normal Saline Flush 0.9% IVP 10 ml PRN PRN Administration NEEDED PER PROVIDER ORDERS Sodium Chloride 10 ml 07/15/20 17:00 07/20/20 09:25 Normal Saline Flush 0.9% IVP 10 ml 0100,0900,1700 PARKER Administration - Lab Result Fish Bone Diagrams: 07/23/20 05:25 07/23/20 05:25 - Additional Planning My Orders: My Active Orders 07/20/20 08:46 hydrALAZINE INJ [Apresoline Inj] 10 mg IVP Q6H PRN 07/20/20 Dinner Dysphagia Puree Diet [DIET] Subjective - Subjective Patient Reports: Other (Sleeping) Objective Vital Signs: Vital Signs - 24 hr 07/19/20 07/19/20 07/19/20 17:00 18:00 19:00 Temperature 37.7 C H Heart Rate [ 104 H 101 H 107 H Monitoring electrodes] Respiratory 23 18 27 H Rate Blood Pressure Blood Pressure [Left Ankle] Blood Pressure [Left Brachial artery] Blood Pressure 138/101 H 135/101 H 143/104 H [Right Brachial artery] Blood Pressure [Right Radial artery] O2 Saturation 93 93 96 09/23/20 09/23/20 09/23/20 20:00 20:41 21:00 Temperature 37.1 C Heart Rate [ 102 H 104 H Monitoring electrodes] Respiratory 24 31 H Rate Blood Pressure Blood Pressure [Left Ankle] Blood Pressure [Left Brachial artery] Blood Pressure 140/110 H 114/111 H [Right Brachial artery] Blood Pressure [Right Radial artery] O2 Saturation 95 94 07/19/20 07/20/20 07/20/20 22:00 02:00 03:00 Temperature Heart Rate [ 91 93 Monitoring electrodes] Respiratory 20 22 22 Rate Blood Pressure Blood Pressure 191/122 H 184/115 H [Left Ankle] Blood Pressure [Left Brachial artery] Blood Pressure [Right Brachial artery] Blood Pressure 172/117 H [Right Radial artery] O2 Saturation 94 93 100 07/20/20 07/20/20 07/20/20 04:00 05:00 06:00 Temperature 37.4 C Heart Rate [ 86 93 88 Monitoring electrodes] Respiratory 25 H 18 22 Rate Blood Pressure Blood Pressure 153/114 H 146/121 H [Left Ankle] Blood Pressure [Left Brachial artery] Blood Pressure 164/116 H [Right Brachial artery] Blood Pressure [Right Radial artery] O2 Saturation 96 97 98 07/20/20 07/20/20 07/20/20 06:44 07:00 07:45 Temperature 37.2 C Heart Rate [ 83 83 Monitoring electrodes] Respiratory 23 25 H Rate Blood Pressure 159/114 H Blood Pressure [Left Ankle] Blood Pressure 146/113 H [Left Brachial artery] Blood Pressure [Right Brachial artery] Blood Pressure [Right Radial artery] O2 Saturation 96 97 07/20/20 07/20/20 07/20/20 08:00 09:00 09:07 Temperature Heart Rate [ 90 91 94 Monitoring electrodes] Respiratory 25 H 24 Rate Blood Pressure Blood Pressure [Left Ankle] Blood Pressure [Left Brachial artery] Blood Pressure 134/95 H 152/115 H 160/120 H [Right Brachial artery] Blood Pressure [Right Radial artery] O2 Saturation 93 92 07/20/20 07/20/20 07/20/20 09:12 09:17 09:32 Temperature 37.4 C Heart Rate [ 95 89 93 Monitoring electrodes] Respiratory 21 Rate Blood Pressure Blood Pressure [Left Ankle] Blood Pressure [Left Brachial artery] Blood Pressure 152/115 H 166/115 H 152/115 H [Right Brachial artery] Blood Pressure [Right Radial artery] O2 Saturation 96 07/20/20 07/20/20 07/20/20 09:40 09:47 10:05 Temperature 37.4 C Heart Rate [ 89 89 Monitoring electrodes] Respiratory 21 Rate Blood Pressure 141/109 H Blood Pressure [Left Ankle] Blood Pressure [Left Brachial artery] Blood Pressure 145/110 H 141/109 H [Right Brachial artery] Blood Pressure [Right Radial artery] O2 Saturation 96 07/20/20 07/20/20 07/20/20 10:32 11:02 12:00 Temperature 36.2 C L Heart Rate [ 87 94 93 Monitoring electrodes] Respiratory 24 26 H Rate Blood Pressure Blood Pressure [Left Ankle] Blood Pressure [Left Brachial artery] Blood Pressure 160/118 H 157/117 H 153/109 H [Right Brachial artery] Blood Pressure [Right Radial artery] O2 Saturation 98 94 07/20/20 07/20/20 07/20/20 13:00 13:42 13:44 Temperature 37.5 C Heart Rate [ 106 H 101 H Monitoring electrodes] Respiratory 26 H 27 H Rate Blood Pressure 141/95 H Blood Pressure [Left Ankle] Blood Pressure [Left Brachial artery] Blood Pressure 156/117 H 141/95 H [Right Brachial artery] Blood Pressure [Right Radial artery] O2 Saturation 92 95 07/20/20 07/20/20 07/20/20 14:00 14:36 15:00 Temperature 37.8 C H 37.8 C H 37.7 C H Heart Rate [ 87 81 Monitoring electrodes] Respiratory 18 24 Rate Blood Pressure Blood Pressure [Left Ankle] Blood Pressure [Left Brachial artery] Blood Pressure 126/112 H 174/117 H [Right Brachial artery] Blood Pressure [Right Radial artery] O2 Saturation 92 93 07/20/20 07/20/20 07/20/20 15:32 15:35 15:40 Temperature 37.9 C H Heart Rate [ 92 Monitoring electrodes] Respiratory 27 H Rate Blood Pressure 174/117 H Blood Pressure [Left Ankle] Blood Pressure [Left Brachial artery] Blood Pressure 154/114 H 149/124 H [Right Brachial artery] Blood Pressure [Right Radial artery] O2 Saturation 95 07/20/20 07/20/20 07/20/20 15:45 16:00 16:15 Temperature 37.2 C Heart Rate [ 98 98 92 Monitoring electrodes] Respiratory 18 19 27 H Rate Blood Pressure Blood Pressure [Left Ankle] Blood Pressure [Left Brachial artery] Blood Pressure 145/119 H 142/107 H 144/103 H [Right Brachial artery] Blood Pressure [Right Radial artery] O2 Saturation 94 94 90 L Oxygen O2 Source Room air I&O (Last 24 Hrs): Intake and Output Totals x24h 07/18/20 07/19/20 07/20/20 23:59 23:59 23:59 Intake Total 3295.083 3535.667 1120.000 Output Total 1908 2580 2460 Balance 1387.083 955.667 -1340.000 General: Other (sedated) HEENT: Other (Tongue not evaluated as he was slepping) Neck: Supple Neuro: Other (sedated) Cardiovascular: Regular rate Respiratory: No respiratory distress Abdomen: Soft Extremities: No edema - Results Results: Laboratory Results WBC 6.8 x10^3/uL (4.8-10.8) 07/19/20 04:40 RBC 3.82 10^6/uL (4.70-6.10) L 07/19/20 04:40 Hgb 12.8 g/dL (14.0-18.0) L 07/19/20 04:40 Hct 38.0 % (42.0-52.0) L 07/19/20 04:40 MCV 99.5 fL (80.0-94.0) H 07/19/20 04:40 MCH 33.5 pg (27.0-31.0) H 07/19/20 04:40 MCHC 33.7 g/dL (32.0-36.0) 07/19/20 04:40 RDW 16.6 % (12.0-15.0) H 07/19/20 04:40 Plt Count 157 10^3/uL (130-450) 07/19/20 04:40 MPV 11.1 fL (7.4-11.4) 07/19/20 04:40 Neut # (Auto) 4.1 10^3/uL (1.5-6.6) 07/19/20 04:40 Lymph # (Auto) 1.3 10^3/uL (1.5-3.5) L 07/19/20 04:40 [place] # (Auto) 1.3 10^3/uL (0.0-1.0) H 07/19/20 04:40 Eos # (Auto) 0.1 10^3/uL (0.0-0.7) 07/19/20 04:40 Baso # (Auto) 0.1 10^3/uL (0.0-0.1) 07/19/20 04:40 Absolute Nucleated RBC 0.00 x10^3/uL 07/19/20 04:40 Nucleated RBC % 0.0 /100WBC 07/19/20 04:40 PT 15.9 secs (9.9-12.6) H 07/15/20 04:55 INR 1.5 (0.8-1.2) H 07/15/20 04:55 APTT 30.6 secs (24.9-33.3) 07/15/20 04:55 VBG pH 7.364 (7.31-7.41) 07/17/20 20:50 Ionized Calcium 1.09 mmol/L (1.15-1.33) L 07/17/20 20:50 Sodium 140 mmol/L (135-145) 07/19/20 04:40 Potassium 3.3 mmol/L (3.5-5.0) L 07/20/20 08:50 Chloride 107 mmol/L (101-111) 07/19/20 04:40 Carbon Dioxide 21 mmol/L (21-32) 07/19/20 04:40 Anion Gap 12.0 (6-13) 07/19/20 04:40 BUN 5 mg/dL (6-20) L 07/19/20 04:40 Creatinine 0.5 mg/dL (0.6-1.2) L 07/19/20 04:40 Estimated GFR (MDRD) 183 (>89) 07/19/20 04:40 Glucose 96 mg/dL (70-100) 07/19/20 04:40 Calcium 8.4 mg/dL (8.5-10.3) L 07/20/20 08:50 Phosphorus 4.1 mg/dL (2.5-4.6) 07/20/20 08:50 Magnesium 1.6 mg/dL (1.7-2.8) L 07/20/20 08:50 Total Bilirubin 2.8 mg/dL (0.2-1.0) H 07/17/20 05:30 Direct Bilirubin 1.5 mg/dL (0.1-0.5) H 07/17/20 05:30 AST 137 IU/L (10-42) H 07/17/20 05:30 ALT 28 IU/L (10-60) 07/17/20 05:30 Alkaline Phosphatase 94 IU/L (42-121) 07/17/20 05:30 Total Protein 7.2 g/dL (6.7-8.2) 07/17/20 05:30 Albumin 3.1 g/dL (3.2-5.5) L 07/20/20 08:50 Globulin 3.7 g/dL (2.1-4.2) 07/17/20 05:30 Albumin/Globulin Ratio 0.9 (1.0-2.2) L 07/15/20 14:04 Lipase 50 U/L (22-51) 07/18/20 04:44 Urine Color DARK YELLOW 07/18/20 08:48 Urine Clarity CLEAR (CLEAR) 07/18/20 08:48 Urine pH 5.5 PH (5.0-7.5) 07/18/20 08:48 Ur Specific [place] 1.025 (1.002-1.030) 07/18/20 08:48 Urine Protein TRACE mg/dL (NEGATIVE) 07/18/20 08:48 Urine Glucose (UA) NEGATIVE mg/dL (NEGATIVE) 07/18/20 08:48 Urine Ketones >=80 mg/dL (NEGATIVE) H 07/18/20 08:48 Urine Occult Blood SMALL (NEGATIVE) H 07/18/20 08:48 Urine Nitrite NEGATIVE (NEGATIVE) 07/18/20 08:48 Urine Bilirubin MODERATE (NEGATIVE) H 07/18/20 08:48 Urine Urobilinogen 4 E.U./dL (NORMAL) H 07/18/20 08:48 Ur Leukocyte Esterase NEGATIVE (NEGATIVE) 07/18/20 08:48 Urine RBC 0-5 /HPF (0-5) 07/18/20 08:48 Urine WBC 0-3 /HPF (0-3) 07/18/20 08:48 Ur Squamous Epith Cells NONE SEEN (<= Few) 07/18/20 08:48 Urine Bacteria None Seen /HPF (None Seen) 07/18/20 08:48 Urine Culture Comments NOT INDICATED 07/18/20 08:48 Nasal Screen MRSA (PCR) NEGATIVE (NEGATIVE) 07/17/20 06:20 Urine Opiates Screen NEGATIVE (NEGATIVE) 07/15/20 08:51 Ur Oxycodone Screen NEGATIVE (NEGATIVE) 07/15/20 08:51 Urine Methadone Screen NEGATIVE (NEGATIVE) 07/15/20 08:51 Ur Propoxyphene Screen NEGATIVE (NEGATIVE) 07/15/20 08:51 Ur Barbiturates Screen NEGATIVE (NEGATIVE) 07/15/20 08:51 Ur Tricyclics Screen NEGATIVE (NEGATIVE) 07/15/20 08:51 Ur Phencyclidine Scrn NEGATIVE (NEGATIVE) 07/15/20 08:51 Ur Amphetamine Screen NEGATIVE (NEGATIVE) 07/15/20 08:51 U Methamphetamines Scrn NEGATIVE (NEGATIVE) 07/15/20 08:51 U Benzodiazepines Scrn POSITIVE (NEGATIVE) H 07/15/20 08:51 Urine Cocaine Screen NEGATIVE (NEGATIVE) 07/15/20 08:51 U Cannabinoids Screen NEGATIVE (NEGATIVE) 07/15/20 08:51 Ethyl Alcohol < 5.0 mg/dL 07/15/20 04:55 Hepatitis A IgM Ab NON-REACTIVE (NON-REACTIVE) 07/16/20 05:50 Hep Bs Antigen NON-REACTIVE (NON-REACTIVE) 07/16/20 05:50 Hep B Core IgM Ab NON-REACTIVE (NON-REACTIVE) 07/16/20 05:50 Hepatitis C Antibody NON-REACTIVE (NON-REACTIVE) 07/16/20 05:50 Hep C Ab Signal/Cutoff 0.00 (<1.00) 07/16/20 05:50
[2020-07-20] MEDS: LACTATED RINGERS 1,000 ML IV SCH ×2 (19:33→21:26)
--- NOTE | 2020-07-20 21:21 | XRAY Report ---
PROCEDURE: Chest 1 View X-Ray INDICATIONS: fever TECHNIQUE: One view of the chest was acquired. COMPARISON: 07/18/2020 FINDINGS: Surgical changes and devices: None. Lungs and pleura: No pleural effusions or pneumothorax. Low lung volumes. Question bibasilar atelect asis. Vascular crowding. Mediastinum: Mediastinal contours appear normal. Heart size is normal. Bones and chest wall: No suspicious bony lesions. Overlying soft tissues appear unremarkable. IMPRESSION: Low lung volumes. Question bibasilar atelectasis. Reviewed by: Dionisio Morales MD on 07/20/2020 9:19 PM PDT Approved by: Dionisio Morales MD on 07/20/2020 9:19 PM PDT Station ID: [id number]
[2020-07-21] MEDS: AMPICILLIN/SULBACTAM 3 GM in SODIUM CHLORIDE 0.9% MINIBAG 100 ML IV SCH ×4 (00:28→17:56)
[2020-07-21] MEDS: LACTATED RINGERS 1,000 ML IV SCH ×2 (04:08→05:44)
[2020-07-21] MEDS: SODIUM CHLORIDE FLUSH 0.9% 10 ML SYRINGE IVP SCH ×4 (04:08→16:52)
[2020-07-21] MEDS: hydrALAZINE INJ 20 MG/ML VIAL IVP PRN ×2 (04:12→16:51)
[2020-07-21] MEDS: SODIUM CHLORIDE FLUSH 0.9% 10 ML SYRINGE IVP PRN (04:12)
[2020-07-21 05:31] LABS: CALCIUM 8.6 mg/dL (8.5-10.3); MAGNESIUM 1.7 mg/dL (1.7-2.8); PHOSPHORUS 3.5 mg/dL (2.5-4.6)
[2020-07-21] MEDS: METOPROLOL 5 MG/5 ML VIAL IVP SCH (05:39)
[2020-07-21] MEDS: PANTOPRAZOLE 40 MG VIAL IVP SCH (06:36)
[2020-07-21] MEDS: POTASSIUM CHLOR 10 MEQ/100 ML 10 MEQ/100 ML BAG IV SCH ×4 (06:53→10:32)
[2020-07-21 08:17] LABS: BASOPHILS # (AUTO) 0.1 10^3/uL (0.0-0.1); BASOPHILS % (AUTO) 1.3 %; EOSINOPHILS # (AUTO) 0.1 10^3/uL (0.0-0.7); EOSINOPHILS % (AUTO) 1.6 %; HGB - HEMOGLOBIN 13.7 g/dL (14.0-18.0); LYMPHOCYTES # (AUTO) 0.9 10^3/uL (1.5-3.5); LYMPHOCYTES % (AUTO) 13.8 %; MEAN CORPUSCULAR HEMOGLOBIN 33.4 pg (27.0-31.0); MEAN CORPUSCULAR HGB CONC 34.2 g/dL (32.0-36.0); MEAN CORPUSCULAR VOLUME 97.8 fL (80.0-94.0); MEAN PLATELET VOLUME 10.1 fL (7.4-11.4); MONOCYTES # (AUTO) 0.8 10^3/uL (0.0-1.0); MONOCYTES % (AUTO) 13.4 %; NEUTROPHILS # (AUTO) 4.3 10^3/uL (1.5-6.6); NEUTROPHILS % (AUTO) 68.9 %; PLT - PLATELET COUNT 317 10^3/uL (130-450); RED CELL DISTRIBUTION WIDTH 17.2 % (12.0-15.0); WHITE BLOOD COUNT 6.2 x10^3/uL (4.8-10.8)
[2020-07-21] MEDS: polyethylene glycoL 3350 17 GM PACKET PO SCH (08:20)
[2020-07-21 08:35] LABS: ALBUMIN 3.2 g/dL (3.2-5.5); ALBUMIN/GLOBULIN RATIO 0.8 (1.0-2.2); ALKALINE PHOSPHATASE 96 IU/L (42-121); ALT ALANINE AMINOTRANSFERASE 45 IU/L (10-60); AST ASPARTATE AMINOTRANSFERASE 219 IU/L (10-42); BILIRUBIN,TOTAL 2.3 mg/dL (0.2-1.0); BUN - BLOOD UREA NITROGEN < 5 mg/dL (6-20); CALCIUM 8.7 mg/dL (8.5-10.3); CARBON DIOXIDE - CO2 21 mmol/L (21-32); CHLORIDE 105 mmol/L (101-111); CREATININE 0.5 mg/dL (0.6-1.2); GLUCOSE 108 mg/dL (70-100); SODIUM 138 mmol/L (135-145); TOTAL PROTEIN 7.3 g/dL (6.7-8.2)
[2020-07-21] MEDS: MULTIVITAMIN 10 ML, FOLIC ACID INJ 1 MG, THIAMINE INJ 100 MG, MAGNESIUM SULFATE 2 GM in... IV SCH ×5 (08:42)
--- NOTE | 2020-07-21 09:06 | PROVIDER PROGRESS NOTE ---
Assessment/Plan - Problem List (1) Alcohol withdrawal Assessment/Plan: He is off Precedex and Ativan drips as of yesterday. Today he is exhibiting signs of benzodiazepine bradycardikinesis and sedation. The benzo effect needs to "wash out". He is not medically cleared to meet with SW regarding alcohol rehab or transfer to an Inpt alcohol rehab facility yet today. Will transfer him out of ICU to [facility]. CODIE Sanz. Start PT and OT. (2) Fever Assessment/Plan: He had again had a fever last evening. Chest x-ray showed bilateral atelectasis, no consolidation. He remains on empiric Unasyn for the throat swelling which was lacerated during his alcohol seizure. Will order incentive spirometry to treat the atelectasis. Increasing activity is also planned for today: Out of bed to chair, PT and OT to start. (4) Tongue laceration Qualifiers: Qualified Code(s): S01.512A - Laceration without foreign body of oral cavity, initial encounter (5) Hypokalemia Assessment/Plan: Resolved with replacement. (6) Alcohol related seizure Assessment/Plan: None further, since admission - Current Meds Current Meds: Current Medications Generic Name Dose Route Start Last Admin Trade Name Freq PRN Reason Stop Dose Admin Chlorhexidine Gluconate 15 ml 07/18/20 12:00 07/20/20 21:32 Peridex PO 15 ml BID PARKER Administration Hydralazine HCl 10 mg 07/20/20 08:46 07/21/20 04:12 Apresoline Inj IVP 10 mg Q6H PRN Administration Hypertensive Emergency Multivitamins 10 ml/ Folic 1,015.2 mls @ 100 mls/hr 07/16/20 09:00 07/20/20 19:32 Acid 1 mg/ Thiamine HCl 100 mg IV 07/21/20 19:00 Infused / Magnesium Sulfate 2 gm/ DAILY PARKER Infusion Sodium Chloride Ampicillin Sodium/Sulbactam 100 mls @ 200 mls/hr 07/18/20 12:00 07/21/20 06:17 Sodium 3 gm/ Sodium Chloride IV Infused Q6HR PARKER Infusion Potassium Chloride 10 meq in 100 mls @ 100 mls/hr 07/21/20 07:00 07/21/20 08:23 Potassium Chloride IV 07/21/20 10:59 100 mls/hr Q1H PARKER Administration Protocol Ondansetron HCl 4 mg 07/15/20 14:04 07/20/20 13:36 Zofran Inj IVP 4 mg Q6HR PRN Administration Nausea / Vomiting Polyethylene Glycol 17 gm 07/20/20 13:00 07/21/20 08:20 Miralax PO 17 gm DAILY PARKER Administration Sodium Chloride 10 ml 07/15/20 14:04 07/21/20 04:12 Normal Saline Flush 0.9% IVP 10 ml PRN PRN Administration NEEDED PER PROVIDER ORDERS Sodium Chloride 10 ml 07/15/20 17:00 07/21/20 06:36 Normal Saline Flush 0.9% IVP 10 ml 0100,0900,1700 PARKER Administration - Lab Result Fish Bone Diagrams: 07/21/20 08:11 07/21/20 08:11 - Additional Planning My Orders: My Active Orders 07/20/20 08:46 hydrALAZINE INJ [Apresoline Inj] 10 mg IVP Q6H PRN 07/20/20 Dinner Dysphagia Puree Diet [DIET] 07/21/20 Evaluate and Treat OT [OT] Routine Evaluate and Treat PT [PT] Routine 07/21/20 08:00 IS [Incentive Spirometry - RT] [RC] TID 07/21/20 08:54 Sanz Discontinuation [RC] ONCE 07/21/20 08:58 Transfer [Admit \\ Transfer \\ Status] [RC] .ONCE 07/21/20 09:00 Metoprolol Succinate [Toprol Xl] 50 mg PO DAILY 07/21/20 09:02 Telemetry- [RC] Q4HR 07/21/20 11:00 Pantoprazole [Protonix] 40 mg PO ONCE ONE 07/22/20 05:00 BMP - BASIC METABOLIC PANEL [CHEM] DAILYLAB CALCIUM [CHEM] DAILYLAB CBC - COMP BLD CT W/AUTO DIFF [HEME] DAILYLAB LIVER PANEL [CHEM] DAILYLAB MAGNESIUM [CHEM] DAILYLAB PHOSPHORUS [CHEM] DAILYLAB 07/22/20 07:00 Pantoprazole [Protonix] 40 mg PO QDAC 07/23/20 05:00 BMP - BASIC METABOLIC PANEL [CHEM] DAILYLAB CBC - COMP BLD CT W/AUTO DIFF [HEME] DAILYLAB LIVER PANEL [CHEM] DAILYLAB MAGNESIUM [CHEM] DAILYLAB Subjective - Subjective Patient Reports: Resting Comfortably Nursing Reports: Other (Still very bradykinetic, he is able to speak in longer sentences but still has hoarseness and trouble swallowing because of his tongue swelling) Objective Vital Signs: Vital Signs - 24 hr 07/20/20 07/20/20 07/20/20 09:07 09:12 09:17 Temperature 37.4 C Heart Rate [ 94 95 89 Monitoring electrodes] Respiratory 21 Rate Blood Pressure Blood Pressure [Left Brachial artery] Blood Pressure 160/120 H 152/115 H 166/115 H [Right Brachial artery] O2 Saturation 96 07/20/20 07/20/20 07/20/20 09:32 09:40 09:47 Temperature 37.4 C Heart Rate [ 93 89 Monitoring electrodes] Respiratory 21 Rate Blood Pressure 141/109 H Blood Pressure [Left Brachial artery] Blood Pressure 152/115 H 145/110 H [Right Brachial artery] O2 Saturation 96 07/20/20 07/20/20 07/20/20 10:05 10:32 11:02 Temperature Heart Rate [ 89 87 94 Monitoring electrodes] Respiratory 24 Rate Blood Pressure Blood Pressure [Left Brachial artery] Blood Pressure 141/109 H 160/118 H 157/117 H [Right Brachial artery] O2 Saturation 98 07/20/20 07/20/20 07/20/20 12:00 13:00 13:42 Temperature 36.2 C L 37.5 C Heart Rate [ 93 106 H Monitoring electrodes] Respiratory 26 H 26 H Rate Blood Pressure 141/95 H Blood Pressure [Left Brachial artery] Blood Pressure 153/109 H 156/117 H [Right Brachial artery] O2 Saturation 94 92 07/20/20 07/20/20 07/20/20 13:44 14:00 14:36 Temperature 37.8 C H 37.8 C H Heart Rate [ 101 H 87 Monitoring electrodes] Respiratory 27 H 18 Rate Blood Pressure Blood Pressure [Left Brachial artery] Blood Pressure 141/95 H 126/112 H [Right Brachial artery] O2 Saturation 95 92 07/20/20 07/20/20 07/20/20 15:00 15:32 15:35 Temperature 37.7 C H Heart Rate [ 81 Monitoring electrodes] Respiratory 24 Rate Blood Pressure 174/117 H Blood Pressure [Left Brachial artery] Blood Pressure 174/117 H 154/114 H [Right Brachial artery] O2 Saturation 93 07/20/20 07/20/20 07/20/20 15:40 15:45 16:00 Temperature 37.9 C H 37.2 C Heart Rate [ 92 98 98 Monitoring electrodes] Respiratory 27 H 18 19 Rate Blood Pressure Blood Pressure [Left Brachial artery] Blood Pressure 149/124 H 145/119 H 142/107 H [Right Brachial artery] O2 Saturation 95 94 94 07/20/20 07/20/20 07/20/20 16:02 16:15 16:50 Temperature Heart Rate [ 92 103 H Monitoring electrodes] Respiratory 27 H 29 H Rate Blood Pressure 142/107 H Blood Pressure [Left Brachial artery] Blood Pressure 144/103 H 140/99 H [Right Brachial artery] O2 Saturation 90 L 90 L 07/20/20 07/20/20 07/20/20 17:00 18:00 19:00 Temperature 38 C H Heart Rate [ 106 H 106 H 89 Monitoring electrodes] Respiratory 26 H 24 26 H Rate Blood Pressure Blood Pressure [Left Brachial artery] Blood Pressure 129/96 H 129/96 H 146/103 H [Right Brachial artery] O2 Saturation 90 L 90 L 91 L 07/20/20 07/20/20 07/20/20 20:00 21:00 21:32 Temperature 38.1 C H Heart Rate [ 102 H 99 Monitoring electrodes] Respiratory 24 25 H Rate Blood Pressure 144/97 H Blood Pressure 130/106 H 144/97 H [Left Brachial artery] Blood Pressure [Right Brachial artery] O2 Saturation 97 93 07/20/20 07/20/20 07/21/20 22:00 23:00 00:00 Temperature 37.6 C H 37.1 C 37.2 C Heart Rate [ 90 90 94 Monitoring electrodes] Respiratory 33 H 30 H 19 Rate Blood Pressure Blood Pressure 139/109 H 141/107 H 150/105 H [Left Brachial artery] Blood Pressure [Right Brachial artery] O2 Saturation 93 94 97 07/21/20 07/21/20 07/21/20 01:00 02:00 03:00 Temperature 37.1 C Heart Rate [ 100 94 98 Monitoring electrodes] Respiratory 21 26 H 94 H Rate Blood Pressure Blood Pressure 159/107 H 156/104 H 128/115 H [Left Brachial artery] Blood Pressure [Right Brachial artery] O2 Saturation 95 96 28 L 07/21/20 07/21/20 07/21/20 04:00 04:12 04:15 Temperature Heart Rate [ 123 H 106 H Monitoring electrodes] Respiratory 26 H 28 H Rate Blood Pressure 147/113 H Blood Pressure 147/114 H 137/95 H [Left Brachial artery] Blood Pressure [Right Brachial artery] O2 Saturation 94 96 07/21/20 07/21/20 07/21/20 04:30 05:00 05:39 Temperature Heart Rate [ 111 H 109 H Monitoring electrodes] Respiratory 25 H 29 H Rate Blood Pressure 123/86 H 123/86 H Blood Pressure 113/87 H 123/86 H [Left Brachial artery] Blood Pressure [Right Brachial artery] O2 Saturation 94 95 07/21/20 07/21/20 07/21/20 06:00 07:00 08:00 Temperature 37.1 C 37.5 C Heart Rate [ 97 97 98 Monitoring electrodes] Respiratory 24 26 H 18 Rate Blood Pressure Blood Pressure 134/93 H 142/103 H 144/104 H [Left Brachial artery] Blood Pressure [Right Brachial artery] O2 Saturation 95 96 96 Oxygen O2 Source Room air I&O (Last 24 Hrs): Intake and Output Totals x24h 07/19/20 07/20/20 07/21/20 23:59 23:59 23:59 Intake Total 3535.667 2493.533 1360 Output Total 2580 3945 1495 Balance 955.667 -1451.467 -135 General: Alert HEENT: Mucous membr. moist/pink Neck: Supple, No thyromegaly Neuro: Alert, Disoriented, Other (Bradykinetic) Cardiovascular: Regular rate Respiratory: No respiratory distress Abdomen: Soft Extremities: No edema - Results Results: Laboratory Results WBC 6.2 x10^3/uL (4.8-10.8) 07/21/20 08:11 RBC 4.10 10^6/uL (4.70-6.10) L 07/21/20 08:11 Hgb 13.7 g/dL (14.0-18.0) L 07/21/20 08:11 Hct 40.1 % (42.0-52.0) L 07/21/20 08:11 MCV 97.8 fL (80.0-94.0) H 07/21/20 08:11 MCH 33.4 pg (27.0-31.0) H 07/21/20 08:11 MCHC 34.2 g/dL (32.0-36.0) 07/21/20 08:11 RDW 17.2 % (12.0-15.0) H 07/21/20 08:11 Plt Count 317 10^3/uL (130-450) 07/21/20 08:11 MPV 10.1 fL (7.4-11.4) 07/21/20 08:11 Neut # (Auto) 4.3 10^3/uL (1.5-6.6) 07/21/20 08:11 Lymph # (Auto) 0.9 10^3/uL (1.5-3.5) L 07/21/20 08:11 [place] # (Auto) 0.8 10^3/uL (0.0-1.0) 07/21/20 08:11 Eos # (Auto) 0.1 10^3/uL (0.0-0.7) 07/21/20 08:11 Baso # (Auto) 0.1 10^3/uL (0.0-0.1) 07/21/20 08:11 Absolute Nucleated RBC 0.00 x10^3/uL 07/21/20 08:11 Nucleated RBC % 0.0 /100WBC 07/21/20 08:11 PT 15.9 secs (9.9-12.6) H 07/15/20 04:55 INR 1.5 (0.8-1.2) H 07/15/20 04:55 APTT 30.6 secs (24.9-33.3) 07/15/20 04:55 VBG pH 7.364 (7.31-7.41) 07/17/20 20:50 Ionized Calcium 1.09 mmol/L (1.15-1.33) L 07/17/20 20:50 Sodium 138 mmol/L (135-145) 07/21/20 08:11 Potassium 3.8 mmol/L (3.5-5.0) 07/21/20 08:11 Chloride 105 mmol/L (101-111) 07/21/20 08:11 Carbon Dioxide 21 mmol/L (21-32) 07/21/20 08:11 Anion Gap 12.0 (6-13) 07/21/20 08:11 BUN < 5 mg/dL (6-20) L 07/21/20 08:11 Creatinine 0.5 mg/dL (0.6-1.2) L 07/21/20 08:11 Estimated GFR (MDRD) 183 (>89) 07/21/20 08:11 Glucose 108 mg/dL (70-100) H 07/21/20 08:11 Calcium 8.7 mg/dL (8.5-10.3) 07/21/20 08:11 Phosphorus 3.5 mg/dL (2.5-4.6) 07/21/20 04:30 Magnesium 1.7 mg/dL (1.7-2.8) 07/21/20 04:30 Total Bilirubin 2.3 mg/dL (0.2-1.0) H 07/21/20 08:11 Direct Bilirubin 1.5 mg/dL (0.1-0.5) H 07/17/20 05:30 AST 219 IU/L (10-42) H 07/21/20 08:11 ALT 45 IU/L (10-60) 07/21/20 08:11 Alkaline Phosphatase 96 IU/L (42-121) 07/21/20 08:11 Total Protein 7.3 g/dL (6.7-8.2) 07/21/20 08:11 Albumin 3.2 g/dL (3.2-5.5) 07/21/20 08:11 Globulin 4.1 g/dL (2.1-4.2) 07/21/20 08:11 Albumin/Globulin Ratio 0.8 (1.0-2.2) L 07/21/20 08:11 Lipase 50 U/L (22-51) 07/18/20 04:44 Urine Color DARK YELLOW 07/18/20 08:48 Urine Clarity CLEAR (CLEAR) 07/18/20 08:48 Urine pH 5.5 PH (5.0-7.5) 07/18/20 08:48 Ur Specific [place] 1.025 (1.002-1.030) 07/18/20 08:48 Urine Protein TRACE mg/dL (NEGATIVE) 07/18/20 08:48 Urine Glucose (UA) NEGATIVE mg/dL (NEGATIVE) 07/18/20 08:48 Urine Ketones >=80 mg/dL (NEGATIVE) H 07/18/20 08:48 Urine Occult Blood SMALL (NEGATIVE) H 07/18/20 08:48 Urine Nitrite NEGATIVE (NEGATIVE) 07/18/20 08:48 Urine Bilirubin MODERATE (NEGATIVE) H 07/18/20 08:48 Urine Urobilinogen 4 E.U./dL (NORMAL) H 07/18/20 08:48 Ur Leukocyte Esterase NEGATIVE (NEGATIVE) 07/18/20 08:48 Urine RBC 0-5 /HPF (0-5) 07/18/20 08:48 Urine WBC 0-3 /HPF (0-3) 07/18/20 08:48 Ur Squamous Epith Cells NONE SEEN (<= Few) 07/18/20 08:48 Urine Bacteria None Seen /HPF (None Seen) 07/18/20 08:48 Urine Culture Comments NOT INDICATED 07/18/20 08:48 Nasal Screen MRSA (PCR) NEGATIVE (NEGATIVE) 07/17/20 06:20 Urine Opiates Screen NEGATIVE (NEGATIVE) 07/15/20 08:51 Ur Oxycodone Screen NEGATIVE (NEGATIVE) 07/15/20 08:51 Urine Methadone Screen NEGATIVE (NEGATIVE) 07/15/20 08:51 Ur Propoxyphene Screen NEGATIVE (NEGATIVE) 07/15/20 08:51 Ur Barbiturates Screen NEGATIVE (NEGATIVE) 07/15/20 08:51 Ur Tricyclics Screen NEGATIVE (NEGATIVE) 07/15/20 08:51 Ur Phencyclidine Scrn NEGATIVE (NEGATIVE) 07/15/20 08:51 Ur Amphetamine Screen NEGATIVE (NEGATIVE) 07/15/20 08:51 U Methamphetamines Scrn NEGATIVE (NEGATIVE) 07/15/20 08:51 U Benzodiazepines Scrn POSITIVE (NEGATIVE) H 07/15/20 08:51 Urine Cocaine Screen NEGATIVE (NEGATIVE) 07/15/20 08:51 U Cannabinoids Screen NEGATIVE (NEGATIVE) 07/15/20 08:51 Ethyl Alcohol < 5.0 mg/dL 07/15/20 04:55 Hepatitis A IgM Ab NON-REACTIVE (NON-REACTIVE) 07/16/20 05:50 Hep Bs Antigen NON-REACTIVE (NON-REACTIVE) 07/16/20 05:50 Hep B Core IgM Ab NON-REACTIVE (NON-REACTIVE) 07/16/20 05:50 Hepatitis C Antibody NON-REACTIVE (NON-REACTIVE) 07/16/20 05:50 Hep C Ab Signal/Cutoff 0.00 (<1.00) 07/16/20 05:50
[2020-07-21] MEDS: METOPROLOL SUCCINATE 50 MG TABLET PO SCH (09:54)
[2020-07-21] MEDS: CHLORHEXIDINE GLUCONATE 15 ML UDC PO SCH ×2 (09:54→21:05)
[2020-07-21] MEDS: MAGNESIUM OXIDE 400 MG TABLET PO SCH ×2 (09:54→16:52)
[2020-07-21] MEDS ORDERED: PANTOPRAZOLE 40 MG TABLET PO SCH (11:00)
[2020-07-22] MEDS: SODIUM CHLORIDE FLUSH 0.9% 10 ML SYRINGE IVP SCH ×4 (00:01→23:57)
[2020-07-22 06:20] LABS: BASOPHILS # (AUTO) 0.1 10^3/uL (0.0-0.1); BASOPHILS % (AUTO) 1.6 %; EOSINOPHILS # (AUTO) 0.1 10^3/uL (0.0-0.7); EOSINOPHILS % (AUTO) 1.9 %; HGB - HEMOGLOBIN 13.4 g/dL (14.0-18.0); LYMPHOCYTES % (AUTO) 14.6 %; MEAN CORPUSCULAR HEMOGLOBIN 33.8 pg (27.0-31.0); MEAN CORPUSCULAR HGB CONC 33.9 g/dL (32.0-36.0); MEAN CORPUSCULAR VOLUME 99.7 fL (80.0-94.0); MEAN PLATELET VOLUME 10.9 fL (7.4-11.4); MONOCYTES # (AUTO) 0.8 10^3/uL (0.0-1.0); MONOCYTES % (AUTO) 11.2 %; NEUTROPHILS # (AUTO) 4.9 10^3/uL (1.5-6.6); PLT - PLATELET COUNT 366 10^3/uL (130-450); RED BLOOD COUNT 3.96 10^6/uL (4.70-6.10); RED CELL DISTRIBUTION WIDTH 17.6 % (12.0-15.0)
[2020-07-22] MEDS: AMPICILLIN/SULBACTAM 3 GM in SODIUM CHLORIDE 0.9% MINIBAG 100 ML IV SCH ×4 (06:31→11:56)
[2020-07-22] MEDS: SODIUM CHLORIDE FLUSH 0.9% 10 ML SYRINGE IVP PRN ×3 (06:31→11:56)
[2020-07-22 06:38] LABS: ALBUMIN 3.3 g/dL (3.2-5.5); BILIRUBIN,DIRECT 0.9 mg/dL (0.1-0.5); BILIRUBIN,TOTAL 2.1 mg/dL (0.2-1.0); CALCIUM 8.9 mg/dL (8.5-10.3); CREATININE 0.4 mg/dL (0.6-1.2); MAGNESIUM 1.8 mg/dL (1.7-2.8); PHOSPHORUS 3.6 mg/dL (2.5-4.6); TOTAL PROTEIN 7.5 g/dL (6.7-8.2)
[2020-07-22] MEDS: PANTOPRAZOLE 40 MG TABLET PO SCH (06:59)
[2020-07-22] MEDS: SENNA 8.6 MG TABLET PO SCH (08:27)
[2020-07-22] MEDS: polyethylene glycoL 3350 17 GM PACKET PO SCH (08:27)
[2020-07-22] MEDS: METOPROLOL SUCCINATE 50 MG TABLET PO SCH (08:28)
[2020-07-22] MEDS: CHLORHEXIDINE GLUCONATE 15 ML UDC PO SCH ×2 (11:46→21:03)
--- NOTE | 2020-07-22 18:12 | PROVIDER PROGRESS NOTE ---
Assessment/Plan - Problem List (1) Benzodiazepine withdrawal Assessment/Plan: IV benzos have been discontinued 2 days ago, he moved out of the ICU yesterday. He is still mostly sleeping all day. He cannot speak to social workers yet to make medical decisions (2) Alcoholic hepatitis Assessment/Plan: LFTs are improving daily. Follow CMP daily Continue with thiamine daily. At admission, he had initially stated he is interested in inpatient alcohol rehab, then he went into DTs. However, today I learned from social workers and erutilization management that he requires an evaluation by the drug and alcohol assessment group which has to be ordered by his PCP, as per Mary. Therefore he will not be discharging to an inpatient facility from here. Continue with PT and OT which has been started here (3) Tongue laceration Qualifiers: Qualified Code(s): S01.512A - Laceration without foreign body of oral cavity, initial encounter Assessment/Plan: Patient still needs to be fed and still needs pured food. Continue with this plan plus mouthwash plus empiric Unasyn (4) Alcohol related seizure Assessment/Plan: No further seizures since admission (5) Alcohol withdrawal Assessment/Plan: Resolved (6) Fever Assessment/Plan: White count and repeat evaluation for source has shown nothing but atelectasis and incentive spirometry was ordered. Fever has resolved (7) Hypokalemia Assessment/Plan: Resolved after replacement. - Current Meds Current Meds: Current Medications Generic Name Dose Route Start Last Admin Trade Name Freq PRN Reason Stop Dose Admin Chlorhexidine Gluconate 15 ml 07/18/20 12:00 07/22/20 11:46 Peridex PO 15 ml BID PARKER Administration Hydralazine HCl 10 mg 07/20/20 08:46 07/21/20 16:51 Apresoline Inj IVP 10 mg Q6H PRN Administration Hypertensive Emergency Metoprolol Succinate 50 mg 07/21/20 09:00 07/22/20 08:28 Toprol Xl PO 50 mg DAILY PARKER Administration Multi-Ingredient Mouthwash/Gargle 30 ml 07/15/20 20:28 07/21/20 09:54 PO 30 ml Q4H PRN Administration Mouth Sore Pain Ondansetron HCl 4 mg 07/15/20 14:04 07/20/20 13:36 Zofran Inj IVP 4 mg Q6HR PRN Administration Nausea / Vomiting Pantoprazole Sodium 40 mg 07/22/20 07:00 07/22/20 06:59 Protonix PO 40 mg QDAC PARKER Administration Polyethylene Glycol 17 gm 07/20/20 13:00 07/22/20 08:27 Miralax PO 17 gm DAILY PARKER Administration Senna 8.6 - 17.2 mg 07/22/20 09:00 07/22/20 08:27 Senokot PO 17.2 mg DAILY PARKER Administration Sodium Chloride 10 ml 07/15/20 14:04 07/22/20 11:56 Normal Saline Flush 0.9% IVP 10 ml PRN PRN Administration NEEDED PER PROVIDER ORDERS Sodium Chloride 10 ml 07/15/20 17:00 07/22/20 17:05 Normal Saline Flush 0.9% IVP 10 ml 0100,0900,1700 PARKER Administration - Lab Result Fish Bone Diagrams: 07/22/20 05:45 07/22/20 05:45 - Additional Planning My Orders: My Active Orders 07/22/20 07:00 Pantoprazole [Protonix] 40 mg PO QDAC 07/22/20 09:00 Senna [Senokot] 8.6 - 17.2 mg PO DAILY 07/22/20 21:00 Amox/Clav 875/125 [Augmentin 875/125] 1 tab PO BID 07/23/20 05:00 BMP - BASIC METABOLIC PANEL [CHEM] DAILYLAB CBC - COMP BLD CT W/AUTO DIFF [HEME] DAILYLAB LIVER PANEL [CHEM] DAILYLAB MAGNESIUM [CHEM] DAILYLAB Subjective - Subjective Patient Reports: Resting Comfortably Objective Vital Signs: Vital Signs - 24 hr 07/21/20 07/22/20 07/22/20 20:06 00:22 04:04 Temperature 37.1 C 37.5 C 37.1 C Heart Rate [ 98 95 Brachial] Heart Rate [ 98 Monitoring electrodes] Respiratory 20 24 20 Rate Blood Pressure [Left Brachial artery] Blood Pressure 149/96 H 151/103 H 125/92 H [Right Brachial artery] O2 Saturation 95 94 93 07/22/20 07/22/20 07/22/20 07:34 12:08 16:12 Temperature 37.3 C 37.1 C 36.5 C Heart Rate [ 103 H 94 88 Brachial] Heart Rate [ Monitoring electrodes] Respiratory 17 19 18 Rate Blood Pressure 121/80 113/76 [Left Brachial artery] Blood Pressure 151/113 H [Right Brachial artery] O2 Saturation 94 94 95 Oxygen O2 Source Room air I&O (Last 24 Hrs): Intake and Output Totals x24h 07/20/20 07/21/20 07/22/20 23:59 23:59 23:59 Intake Total 2493.533 3690.2 540 Output Total 3945 1575 425 Balance -3319.671 1331.2 115 General: Other (sleeping) HEENT: Mucous membr. moist/pink Neck: Supple Neuro: Other (Bradykinetic aqnd lethargic) Cardiovascular: Regular rate Respiratory: No respiratory distress Abdomen: Soft Extremities: No edema - Results Results: Laboratory Results WBC 7.0 x10^3/uL (4.8-10.8) 07/22/20 05:45 RBC 3.96 10^6/uL (4.70-6.10) L 07/22/20 05:45 Hgb 13.4 g/dL (14.0-18.0) L 07/22/20 05:45 Hct 39.5 % (42.0-52.0) L 07/22/20 05:45 MCV 99.7 fL (80.0-94.0) H 07/22/20 05:45 MCH 33.8 pg (27.0-31.0) H 07/22/20 05:45 MCHC 33.9 g/dL (32.0-36.0) 07/22/20 05:45 RDW 17.6 % (12.0-15.0) H 07/22/20 05:45 Plt Count 366 10^3/uL (130-450) 07/22/20 05:45 MPV 10.9 fL (7.4-11.4) 07/22/20 05:45 Neut # (Auto) 4.9 10^3/uL (1.5-6.6) 07/22/20 05:45 Lymph # (Auto) 1.0 10^3/uL (1.5-3.5) L 07/22/20 05:45 [place] # (Auto) 0.8 10^3/uL (0.0-1.0) 07/22/20 05:45 Eos # (Auto) 0.1 10^3/uL (0.0-0.7) 07/22/20 05:45 Baso # (Auto) 0.1 10^3/uL (0.0-0.1) 07/22/20 05:45 Absolute Nucleated RBC 0.00 x10^3/uL 07/22/20 05:45 Nucleated RBC % 0.0 /100WBC 07/22/20 05:45 PT 15.9 secs (9.9-12.6) H 07/15/20 04:55 INR 1.5 (0.8-1.2) H 07/15/20 04:55 APTT 30.6 secs (24.9-33.3) 07/15/20 04:55 VBG pH 7.364 (7.31-7.41) 07/17/20 20:50 Ionized Calcium 1.09 mmol/L (1.15-1.33) L 07/17/20 20:50 Sodium 138 mmol/L (135-145) 07/22/20 05:45 Potassium 3.7 mmol/L (3.5-5.0) 07/22/20 05:45 Chloride 106 mmol/L (101-111) 07/22/20 05:45 Carbon Dioxide 21 mmol/L (21-32) 07/22/20 05:45 Anion Gap 11.0 (6-13) 07/22/20 05:45 BUN 5 mg/dL (6-20) L 07/22/20 05:45 Creatinine 0.4 mg/dL (0.6-1.2) L 07/22/20 05:45 Estimated GFR (MDRD) 237 (>89) 07/22/20 05:45 Glucose 102 mg/dL (70-100) H 07/22/20 05:45 Calcium 8.9 mg/dL (8.5-10.3) 07/22/20 05:45 Phosphorus 3.6 mg/dL (2.5-4.6) 07/22/20 05:45 Magnesium 1.8 mg/dL (1.7-2.8) 07/22/20 05:45 Total Bilirubin 2.1 mg/dL (0.2-1.0) H 07/22/20 05:45 Direct Bilirubin 0.9 mg/dL (0.1-0.5) H 07/22/20 05:45 AST 257 IU/L (10-42) H 07/22/20 05:45 ALT 56 IU/L (10-60) 07/22/20 05:45 Alkaline Phosphatase 106 IU/L (42-121) 07/22/20 05:45 Total Protein 7.5 g/dL (6.7-8.2) 07/22/20 05:45 Albumin 3.3 g/dL (3.2-5.5) 07/22/20 05:45 Globulin 4.2 g/dL (2.1-4.2) 07/22/20 05:45 Albumin/Globulin Ratio 0.8 (1.0-2.2) L 07/21/20 08:11 Lipase 50 U/L (22-51) 07/18/20 04:44 Urine Color DARK YELLOW 07/18/20 08:48 Urine Clarity CLEAR (CLEAR) 07/18/20 08:48 Urine pH 5.5 PH (5.0-7.5) 07/18/20 08:48 Ur Specific [place] 1.025 (1.002-1.030) 07/18/20 08:48 Urine Protein TRACE mg/dL (NEGATIVE) 07/18/20 08:48 Urine Glucose (UA) NEGATIVE mg/dL (NEGATIVE) 07/18/20 08:48 Urine Ketones >=80 mg/dL (NEGATIVE) H 07/18/20 08:48 Urine Occult Blood SMALL (NEGATIVE) H 07/18/20 08:48 Urine Nitrite NEGATIVE (NEGATIVE) 07/18/20 08:48 Urine Bilirubin MODERATE (NEGATIVE) H 07/18/20 08:48 Urine Urobilinogen 4 E.U./dL (NORMAL) H 07/18/20 08:48 Ur Leukocyte Esterase NEGATIVE (NEGATIVE) 07/18/20 08:48 Urine RBC 0-5 /HPF (0-5) 07/18/20 08:48 Urine WBC 0-3 /HPF (0-3) 07/18/20 08:48 Ur Squamous Epith Cells NONE SEEN (<= Few) 07/18/20 08:48 Urine Bacteria None Seen /HPF (None Seen) 07/18/20 08:48 Urine Culture Comments NOT INDICATED 07/18/20 08:48 Nasal Screen MRSA (PCR) NEGATIVE (NEGATIVE) 07/17/20 06:20 Urine Opiates Screen NEGATIVE (NEGATIVE) 07/15/20 08:51 Ur Oxycodone Screen NEGATIVE (NEGATIVE) 07/15/20 08:51 Urine Methadone Screen NEGATIVE (NEGATIVE) 07/15/20 08:51 Ur Propoxyphene Screen NEGATIVE (NEGATIVE) 07/15/20 08:51 Ur Barbiturates Screen NEGATIVE (NEGATIVE) 07/15/20 08:51 Ur Tricyclics Screen NEGATIVE (NEGATIVE) 07/15/20 08:51 Ur Phencyclidine Scrn NEGATIVE (NEGATIVE) 07/15/20 08:51 Ur Amphetamine Screen NEGATIVE (NEGATIVE) 07/15/20 08:51 U Methamphetamines Scrn NEGATIVE (NEGATIVE) 07/15/20 08:51 U Benzodiazepines Scrn POSITIVE (NEGATIVE) H 07/15/20 08:51 Urine Cocaine Screen NEGATIVE (NEGATIVE) 07/15/20 08:51 U Cannabinoids Screen NEGATIVE (NEGATIVE) 07/15/20 08:51 Ethyl Alcohol < 5.0 mg/dL 07/15/20 04:55 Coronavirus (PCR) NEGATIVE 07/21/20 16:13 Hepatitis A IgM Ab NON-REACTIVE (NON-REACTIVE) 07/16/20 05:50 Hep Bs Antigen NON-REACTIVE (NON-REACTIVE) 07/16/20 05:50 Hep B Core IgM Ab NON-REACTIVE (NON-REACTIVE) 07/16/20 05:50 Hepatitis C Antibody NON-REACTIVE (NON-REACTIVE) 07/16/20 05:50 Hep C Ab Signal/Cutoff 0.00 (<1.00) 07/16/20 05:50
[2020-07-22] MEDS: AMOX/CLAV 875 MG/125 MG TABLET PO SCH (21:03)
[2020-07-23 05:53] LABS: BASOPHILS # (AUTO) 0.1 10^3/uL (0.0-0.1); BASOPHILS % (AUTO) 1.2 %; EOSINOPHILS # (AUTO) 0.1 10^3/uL (0.0-0.7); EOSINOPHILS % (AUTO) 1.3 %; HGB - HEMOGLOBIN 13.1 g/dL (14.0-18.0); LYMPHOCYTES # (AUTO) 1.3 10^3/uL (1.5-3.5); LYMPHOCYTES % (AUTO) 14.3 %; MEAN CORPUSCULAR HEMOGLOBIN 32.8 pg (27.0-31.0); MEAN CORPUSCULAR HGB CONC 32.8 g/dL (32.0-36.0); MONOCYTES # (AUTO) 0.8 10^3/uL (0.0-1.0); MONOCYTES % (AUTO) 8.1 %; NEUTROPHILS # (AUTO) 6.9 10^3/uL (1.5-6.6); NEUTROPHILS % (AUTO) 74.3 %; PLT - PLATELET COUNT 410 10^3/uL (130-450); RED CELL DISTRIBUTION WIDTH 17.6 % (12.0-15.0); WHITE BLOOD COUNT 9.3 x10^3/uL (4.8-10.8)
[2020-07-23 06:09] LABS: ALBUMIN 3.1 g/dL (3.2-5.5); BILIRUBIN,DIRECT 0.8 mg/dL (0.1-0.5); BILIRUBIN,TOTAL 1.7 mg/dL (0.2-1.0); CREATININE 0.6 mg/dL (0.6-1.2); MAGNESIUM 1.7 mg/dL (1.7-2.8); TOTAL PROTEIN 7.2 g/dL (6.7-8.2)
[2020-07-23] MEDS: PANTOPRAZOLE 40 MG TABLET PO SCH (06:47)
[2020-07-23] MEDS: polyethylene glycoL 3350 17 GM PACKET PO SCH (09:12)
[2020-07-23] MEDS: SENNA 8.6 MG TABLET PO SCH (09:12)
[2020-07-23] MEDS: METOPROLOL SUCCINATE 50 MG TABLET PO SCH (09:12)
[2020-07-23] MEDS: CHLORHEXIDINE GLUCONATE 15 ML UDC PO SCH ×3 (09:12→20:54)
[2020-07-23] MEDS: AMOX/CLAV 875 MG/125 MG TABLET PO SCH ×2 (09:12→20:54)
[2020-07-23] MEDS: SODIUM CHLORIDE FLUSH 0.9% 10 ML SYRINGE IVP SCH ×3 (09:13→23:58)
--- NOTE | 2020-07-23 10:41 | PROVIDER PROGRESS NOTE ---
Assessment/Plan - Problem List (1) Alcoholism Assessment/Plan: Before he went into s, he stated he wanted help with inpatient alcohol rehab. Yesterday it was learned that he must have an assessment by alcohol and drug personnel, which we do not have here. Social Work is to explain this to him today and offer other resources to remain abstinent from alcohol abuse. Oral thiamine plus vitamin ordered. (2) Fever Assessment/Plan: Empiric Unasyn ordered for the tongue is a source of an infection. Repeat evaluation for source showed only pulmonary atelectasis, incentive spirometry was ordered. There are no further fevers. IV Unasyn was stopped yesterday, oral Augmentin was started. We will plan a 7- day total course of antibiotics for this poss infection of tongue>> tomorrow will be the last day of antibx. (3) Tongue laceration Qualifiers: Qualified Code(s): S01.512A - Laceration without foreign body of oral cavity, initial encounter Assessment/Plan: Much improved, he has a visible laceration but the tongue is no longer swollen, he moves it freely, he is asking for diet to be advanced. Continue with oral care, will stop the IV Unasyn, will advance his diet to soft. (4) Alcoholic hepatitis Assessment/Plan: LFTs improving daily. (5) Hypokalemia Assessment/Plan: Resolved (6) Alcohol related seizure Assessment/Plan: No further seizures since admission seizure (7) Alcohol withdrawal Assessment/Plan: Resolved. He has been off the Ativan drip for greater than 2 days. Yesterday he was still in benzodiazepine withdrawal and today he is awake alert. Will start PT. Will advance his diet. - Current Meds Current Meds: Current Medications Generic Name Dose Route Start Last Admin Trade Name Freq PRN Reason Stop Dose Admin Amoxicillin/Clavulanate Potassium 1 tab 07/22/20 21:00 07/23/20 09:12 Augmentin 875/125 PO 1 tab BID PARKER Administration Chlorhexidine Gluconate 15 ml 07/18/20 12:00 07/23/20 09:12 Peridex PO 15 ml BID PARKER Administration Hydralazine HCl 10 mg 07/20/20 08:46 07/21/20 16:51 Apresoline Inj IVP 10 mg Q6H PRN Administration Hypertensive Emergency Metoprolol Succinate 50 mg 07/21/20 09:00 07/23/20 09:12 Toprol Xl PO Not Given DAILY [facility] Multi-Ingredient Mouthwash/Gargle 30 ml 07/15/20 20:28 07/21/20 09:54 PO 30 ml Q4H PRN Administration Mouth Sore Pain Ondansetron HCl 4 mg 07/15/20 14:04 07/20/20 13:36 Zofran Inj IVP 4 mg Q6HR PRN Administration Nausea / Vomiting Pantoprazole Sodium 40 mg 07/22/20 07:00 07/23/20 06:47 Protonix PO 40 mg QDAC PARKER Administration Polyethylene Glycol 17 gm 07/20/20 13:00 07/23/20 09:12 Miralax PO Not Given DAILY [facility] Senna 8.6 - 17.2 mg 07/22/20 09:00 07/23/20 09:12 Senokot PO Not Given DAILY [facility] Sodium Chloride 10 ml 07/15/20 14:04 07/22/20 11:56 Normal Saline Flush 0.9% IVP 10 ml PRN PRN Administration NEEDED PER PROVIDER ORDERS Sodium Chloride 10 ml 07/15/20 17:00 07/23/20 09:13 Normal Saline Flush 0.9% IVP 10 ml 0100,0900,1700 PARKER Administration - Lab Result Fish Bone Diagrams: 07/23/20 05:25 07/23/20 05:25 - Additional Planning My Orders: My Active Orders 07/22/20 21:00 Amox/Clav 875/125 [Augmentin 875/125] 1 tab PO BID Subjective - Subjective Patient Reports: Resting Comfortably Objective Vital Signs: Vital Signs - 24 hr 07/22/20 07/22/20 07/22/20 12:08 16:12 21:25 Temperature 37.1 C 36.5 C 37.7 C H Heart Rate [ 94 88 99 Brachial] Respiratory 19 18 18 Rate Blood Pressure 121/80 113/76 [Left Brachial artery] Blood Pressure 138/91 H [Right Brachial artery] O2 Saturation 94 95 96 07/23/20 07/23/20 07/23/20 00:08 05:00 06:51 Temperature 37.6 C H 37.3 C 37.1 C Heart Rate [ 104 H 90 98 Brachial] Respiratory 20 16 18 Rate Blood Pressure 117/77 116/85 H [Left Brachial artery] Blood Pressure 140/98 H [Right Brachial artery] O2 Saturation 96 96 95 07/23/20 09:10 Temperature Heart Rate [ 104 H Brachial] Respiratory Rate Blood Pressure [Left Brachial artery] Blood Pressure 102/66 [Right Brachial artery] O2 Saturation Oxygen O2 Source Room air I&O (Last 24 Hrs): Intake and Output Totals x24h 07/21/20 07/22/20 07/23/20 23:59 23:59 23:59 Intake Total 3690.2 1040 120 Output Total 1575 675 400 Balance 2115.2 365 -280 General: Alert, Oriented x3 HEENT: Mucous membr. moist/pink, Other (Tongue has laceration visible, it appears clean, the tongue is no longer swollen) Neck: Supple, No JVD Neuro: Alert, Non Focal, Other (No tremor, no bradycardia kinesis or slurred speech) Cardiovascular: Regular rate Respiratory: No respiratory distress Abdomen: Soft Extremities: No edema - Results Results: Laboratory Results WBC 9.3 x10^3/uL (4.8-10.8) 07/23/20 05:25 RBC 4.00 10^6/uL (4.70-6.10) L 07/23/20 05:25 Hgb 13.1 g/dL (14.0-18.0) L 07/23/20 05:25 Hct 40.0 % (42.0-52.0) L 07/23/20 05:25 MCV 100.0 fL (80.0-94.0) H 07/23/20 05:25 MCH 32.8 pg (27.0-31.0) H 07/23/20 05:25 MCHC 32.8 g/dL (32.0-36.0) 07/23/20 05:25 RDW 17.6 % (12.0-15.0) H 07/23/20 05:25 Plt Count 410 10^3/uL (130-450) 07/23/20 05:25 MPV 11.0 fL (7.4-11.4) 07/23/20 05:25 Neut # (Auto) 6.9 10^3/uL (1.5-6.6) H 07/23/20 05:25 Lymph # (Auto) 1.3 10^3/uL (1.5-3.5) L 07/23/20 05:25 Lane # (Auto) 0.8 10^3/uL (0.0-1.0) 07/23/20 05:25 Eos # (Auto) 0.1 10^3/uL (0.0-0.7) 07/23/20 05:25 Baso # (Auto) 0.1 10^3/uL (0.0-0.1) 07/23/20 05:25 Absolute Nucleated RBC 0.00 x10^3/uL 07/23/20 05:25 Nucleated RBC % 0.0 /100WBC 07/23/20 05:25 PT 15.9 secs (9.9-12.6) H 07/15/20 04:55 INR 1.5 (0.8-1.2) H 07/15/20 04:55 APTT 30.6 secs (24.9-33.3) 07/15/20 04:55 VBG pH 7.364 (7.31-7.41) 07/17/20 20:50 Ionized Calcium 1.09 mmol/L (1.15-1.33) L 07/17/20 20:50 Sodium 142 mmol/L (135-145) 07/23/20 05:25 Potassium 3.5 mmol/L (3.5-5.0) 07/23/20 05:25 Chloride 108 mmol/L (101-111) 07/23/20 05:25 Carbon Dioxide 23 mmol/L (21-32) 07/23/20 05:25 Anion Gap 11.0 (6-13) 07/23/20 05:25 BUN 8 mg/dL (6-20) 07/23/20 05:25 Creatinine 0.6 mg/dL (0.6-1.2) 07/23/20 05:25 Estimated GFR (MDRD) 148 (>89) 07/23/20 05:25 Glucose 123 mg/dL (70-100) H 07/23/20 05:25 Calcium 9.0 mg/dL (8.5-10.3) 07/23/20 05:25 Phosphorus 3.6 mg/dL (2.5-4.6) 07/22/20 05:45 Magnesium 1.7 mg/dL (1.7-2.8) 07/23/20 05:25 Total Bilirubin 1.7 mg/dL (0.2-1.0) H 07/23/20 05:25 Direct Bilirubin 0.8 mg/dL (0.1-0.5) H 07/23/20 05:25 AST 294 IU/L (10-42) H 07/23/20 05:25 ALT 74 IU/L (10-60) H 07/23/20 05:25 Alkaline Phosphatase 114 IU/L (42-121) 07/23/20 05:25 Total Protein 7.2 g/dL (6.7-8.2) 07/23/20 05:25 Albumin 3.1 g/dL (3.2-5.5) L 07/23/20 05:25 Globulin 4.1 g/dL (2.1-4.2) 07/23/20 05:25 Albumin/Globulin Ratio 0.8 (1.0-2.2) L 07/21/20 08:11 Lipase 50 U/L (22-51) 07/18/20 04:44 Urine Color DARK YELLOW 07/18/20 08:48 Urine Clarity CLEAR (CLEAR) 07/18/20 08:48 Urine pH 5.5 PH (5.0-7.5) 07/18/20 08:48 Ur Specific Edison 1.025 (1.002-1.030) 07/18/20 08:48 Urine Protein TRACE mg/dL (NEGATIVE) 07/18/20 08:48 Urine Glucose (UA) NEGATIVE mg/dL (NEGATIVE) 07/18/20 08:48 Urine Ketones >=80 mg/dL (NEGATIVE) H 07/18/20 08:48 Urine Occult Blood SMALL (NEGATIVE) H 07/18/20 08:48 Urine Nitrite NEGATIVE (NEGATIVE) 07/18/20 08:48 Urine Bilirubin MODERATE (NEGATIVE) H 07/18/20 08:48 Urine Urobilinogen 4 E.U./dL (NORMAL) H 07/18/20 08:48 Ur Leukocyte Esterase NEGATIVE (NEGATIVE) 07/18/20 08:48 Urine RBC 0-5 /HPF (0-5) 07/18/20 08:48 Urine WBC 0-3 /HPF (0-3) 07/18/20 08:48 Ur Squamous Epith Cells NONE SEEN (<= Few) 07/18/20 08:48 Urine Bacteria None Seen /HPF (None Seen) 07/18/20 08:48 Urine Culture Comments NOT INDICATED 07/18/20 08:48 Nasal Screen MRSA (PCR) NEGATIVE (NEGATIVE) 07/17/20 06:20 Urine Opiates Screen NEGATIVE (NEGATIVE) 07/15/20 08:51 Ur Oxycodone Screen NEGATIVE (NEGATIVE) 07/15/20 08:51 Urine Methadone Screen NEGATIVE (NEGATIVE) 07/15/20 08:51 Ur Propoxyphene Screen NEGATIVE (NEGATIVE) 07/15/20 08:51 Ur Barbiturates Screen NEGATIVE (NEGATIVE) 07/15/20 08:51 Ur Tricyclics Screen NEGATIVE (NEGATIVE) 07/15/20 08:51 Ur Phencyclidine Scrn NEGATIVE (NEGATIVE) 07/15/20 08:51 Ur Amphetamine Screen NEGATIVE (NEGATIVE) 07/15/20 08:51 U Methamphetamines Scrn NEGATIVE (NEGATIVE) 07/15/20 08:51 U Benzodiazepines Scrn POSITIVE (NEGATIVE) H 07/15/20 08:51 Urine Cocaine Screen NEGATIVE (NEGATIVE) 07/15/20 08:51 U Cannabinoids Screen NEGATIVE (NEGATIVE) 07/15/20 08:51 Ethyl Alcohol < 5.0 mg/dL 07/15/20 04:55 Coronavirus (PCR) NEGATIVE 07/21/20 16:13 Hepatitis A IgM Ab NON-REACTIVE (NON-REACTIVE) 07/16/20 05:50 Hep Bs Antigen NON-REACTIVE (NON-REACTIVE) 07/16/20 05:50 Hep B Core IgM Ab NON-REACTIVE (NON-REACTIVE) 07/16/20 05:50 Hepatitis C Antibody NON-REACTIVE (NON-REACTIVE) 07/16/20 05:50 Hep C Ab Signal/Cutoff 0.00 (<1.00) 07/16/20 05:50
[2020-07-23] MEDS: THIAMINE 100 MG TABLET PO SCH (12:28)
[2020-07-23] MEDS: PRENATAL VITAMIN TABLET PO SCH (12:28)
--- NOTE | 2020-07-24 06:58 | DISCHARGE SUMMARY ---
"Discharge Summary Admit Date: 07/15/20 Discharge Date: 07/24/20 Discharging Provider: Luana Rios Primary Care Provider: Sai Art Code Status: Attempt Resuscitation Condition at Discharge: Stable Discharge Disposition: 01 Home, Self Care - DIAGNOSES Admission Diagnoses: 1. Alcohol-related seizure 2. Alcohol withdrawal 3. Tongue laceration 4. Hypokalemia 5. Alcoholic hepatitis Discharge Diagnoses with Status of Each Condition: 1. Alcohol-related seizure: Acute. Resolved 2. Alcohol withdrawal: Acute. Resolved 3. Tongue laceration: Acute. Healing 4. Hypokalemia: Acute. Resolved 5. Alcoholic hepatitis: Acute. Mild. Stable. - HPI History of Present Illness: Per Dr. Mcdermott's H&P: He is a 39-year-old white male who is been drinking since 18 years of age. Drinks a pint of hard alcohol a day. Years ago he did have withdrawal seizures. Lately he has been trying to cut back on his alcohol and is had a seizure a month ago, a week ago, and then today. He was seen in the emergency room by Dr. Lezama June 01 for a seizure at work. Again related to alcohol use. He was instructed to seek primary care provider follow-up, not to drive. 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 In the developer programmer hours of this morning, he had a generalized seizure that lasted over a minute. He also had a seizure yesterday. His roommate finally just called 911 and brought him to the emergency room. He was initially afebrile with a tachycardic heart rate of 135. Respirations 24. He was awake, alert, oriented to person and place but not time. He was tremulous, hypervigilant, diaphoretic. A midline tongue laceration with fresh blood. White cell count was 9.3. INR is 1.5. Potassium was 2.8. Glucose 182. Total bili 1.9. AST 182. ALT less than 10. Total protein is 8.6. Alcohol alcohol is less than 5. He received a banana bag, Librium, Ativan, a liter of normal saline x2, Zofran and a potassium rider. Dr. Lorenzo then took over the case and gave him lactated Ringer's drip, Viscous Lidocaine for his mouth, and phenobarbital. Dr. Lorenzo is using phenobarbital not for seizures but for a new method of controlling withdrawal. The patient continues to be tremulous, tachycardic, and is not felt safe to go home as he is going into withdrawal. As such we were contacted and we are admitting the patient. - CONSULTS | PROCEDURES Consultations: Dr. Peyman Grant with [facility] - HOSPITAL COURSE Hospital Course: Patient did not experience any further seizures throughout his hospital stay. However on the night of the second day of his hospital stay his withdrawal symptoms worsened. He became significantly agitated and delirius and warranted four-point restraints which he initially broke out of. This triggered a code howard in the hospital. Consequently the patient was transferred to the ICU where he was placed on Precedex drip. There was no significant response to Precedex so he was switched to an Ativan drip. He was maintained on CIWA protocol throughout his hospital stay. The patient spiked a temperature intermittently throughout his stay in the hospital. Highest temperature was 38.6 C. Blood cultures were obtained and there were no growth after 5 days. Chest x-ray was negative for pneumonia. His urine analysis was negative for a urinary tract infection. Patient's serology was negative for COVID. Patient's hepatitis panel was negative The patient was seen by Dr. Peyman Grant with [facility] for his tongue laceration. He recommended Unasyn while the patient was in the hospital and Augmentin upon discharge. This recommendations were implemented. Patient was instructed to abstain from driving. He expressed understanding. On the day of discharge patient was completely coherent and able to carry a full conversation. He appeared very remorseful about his behavior during the alcohol withdrawal. He is emphatic on seeking help with abstaining from alcohol. - ALLERGIES Allergies/Adverse Reactions: Allergies Allergy/AdvReac Type Severity Reaction Status Date / Time No Known Drug Allergies Allergy Verified 07/15/20 04:53 - MEDICATIONS Home Medications: Ambulatory Orders Medication Instructions Recorded Confirmed Hydrochlorothiazide 12.5 mg PO DAILY 12/02/19 07/16/20 Metoprolol Succinate 50 mg PO DAILY 07/16/20 07/16/20 Amox/Clav 875/125 [Augmentin 1 tab PO BID #10 tablet 07/24/20 875/125] - PHYSICAL EXAM AT DISCHARGE General Appearance: positive: No acute distress, Alert Eyes Bilateral: positive: PERRL, EOMI ENT: positive: No signs of dehydration Neck: positive: No JVD, Trachea midline Respiratory: positive: Chest non-tender, No respiratory distress, Breath sounds nml. negative: Wheezes, Rales, Rhonchi Cardiovascular: positive: Regular rate & rhythm Abdomen: positive: Non-tender, Nml bowel sounds, No distention. negative: Guarding, Rebound Back: positive: Nml inspection Skin: positive: Color nml, No rash, Warm Extremities: positive: Non-tender, Full ROM, Nml appearance, No pedal edema Neurologic/Psychiatric: positive: Oriented x3, Mood/affect nml - LABS Result Diagrams: 07/23/20 05:25 07/23/20 05:25 - FOLLOW UP Follow Up: With primary care physician: Dr. Sai Art in 5-7 days - TIME SPENT Time Spent in Discharge (Minutes): 25"
--- NOTE | 2020-07-24 07:00 | Discharge Plan ---
Discharge Plan Problem Reviewed?: Yes Disposition: 01 Home, Self Care Condition: Stable Prescriptions: Amox/Clav 875/125 [Augmentin 875/125] 1 tab PO BID #10 tablet Diet: Regular Activity Restrictions: Activity as Tolerated Driving Restrictions: Yes Weight Bearing: Full Weight Instruction Topics: Phenobarbital tablets, Withdrawal Alcohol What Expect, ED Seizure Alcohol Withdrawal, ED Withdrawal Alcohol Health Concerns: You were admitted for alcohol withdrawal symptoms. As a result of withdrawal you had a seizure and sustained laceration to your tongue. You were admitted and placed on alcohol withdrawal protocol. Your withdrawal symptoms worsened such that you had to be transferred to the ICU and treated with Ativan and Precedex drip. The treatment was maintained for 7 days. On day 5 of your hospital stay you improved such that he could be transferred from the ICU to the medical floor. You are currently back to your baseline functioning. You have been advised to quit drinking. You expressed understanding and expressed the plan you have to seek help. Due to your seizure you have been advised to abstain from driving for at least 6 months. He was placed on IV antibiotics because you had a fever during ER stay. This was thought to be possibly due to your tongue laceration. You will be sent home on Augmentin for 5 more days. You may resume taking your antihypertensive medication. Metoprolol and Hydrochlorothiazide. Follow-up with your primary care physician within 5 to 7 days from discharge. Plan of Treatment: You were admitted for alcohol withdrawal symptoms. As a result of withdrawal you had a seizure and sustained laceration to your tongue. You were admitted and placed on alcohol withdrawal protocol. Your withdrawal symptoms worsened such that you had to be transferred to the ICU and treated with Ativan and Precedex drip. The treatment was maintained for 7 days. On day 5 of your hospital stay you improved such that he could be transferred from the ICU to the medical floor. You are currently back to your baseline functioning. You have been advised to quit drinking. You expressed understanding and expressed the plan you have to seek help. Due to your seizure you have been advised to abstain from driving for at least 6 months. He was placed on IV antibiotics because you had a fever during ER stay. This was thought to be possibly due to your tongue laceration. You will be sent home on Augmentin for 5 more days. You may resume taking your antihypertensive medication. Metoprolol and Hydrochlorothiazide. Follow-up with your primary care physician within 5 to 7 days from discharge. Care Goals: You were admitted for alcohol withdrawal symptoms. As a result of withdrawal you had a seizure and sustained laceration to your tongue. You were admitted and placed on alcohol withdrawal protocol. Your withdrawal symptoms worsened such that you had to be transferred to the ICU and treated with Ativan and Precedex drip. The treatment was maintained for 7 days. On day 5 of your hospital stay you improved such that he could be transferred from the ICU to the medical floor. You are currently back to your baseline functioning. You have been advised to quit drinking. You expressed understanding and expressed the plan you have to seek help. Due to your seizure you have been advised to abstain from driving for at least 6 months. He was placed on IV antibiotics because you had a fever during ER stay. This was thought to be possibly due to your tongue laceration. You will be sent home on Augmentin for 5 more days. You may resume taking your antihypertensive medication. Metoprolol and Hydrochlorothiazide. Follow-up with your primary care physician within 5 to 7 days from discharge. Additional Instructions or Follow Up instructions: Stay well hydrated. Avoid alcohol. Continue with getting into alcohol treatment program as you have been. Use lidocaine if needed for the tongue abrasion. Cleanse gently with regular water a few times a day. Eating as tolerated. Tylenol ibuprofen as needed for pains. Ondansatron if needed for nausea. Use the phenobarbital as directed over the next 4 days to help with alcohol withdrawal symptoms. This is intended for the short-term just to help ease the withdrawal. Recheck if further problems or symptoms unrelieved by the medication. No Smoking: If you smoke, Please STOP! Call for help.
[2020-07-24] MEDS: PANTOPRAZOLE 40 MG TABLET PO SCH (07:21)
[2020-07-24] MEDS: AMOX/CLAV 875 MG/125 MG TABLET PO SCH (08:30)
[2020-07-24] MEDS: PRENATAL VITAMIN TABLET PO SCH (08:32)
[2020-07-24] MEDS: CHLORHEXIDINE GLUCONATE 15 ML UDC PO SCH ×2 (08:32)
[2020-07-24] MEDS: polyethylene glycoL 3350 17 GM PACKET PO SCH (08:33)
[2020-07-24] MEDS: SENNA 8.6 MG TABLET PO SCH (08:33)
[2020-07-24] MEDS: SODIUM CHLORIDE FLUSH 0.9% 10 ML SYRINGE IVP SCH (08:34)
[2020-07-24] MEDS: THIAMINE 100 MG TABLET PO SCH (08:34)
[2020-07-24] MEDS ORDERED: METOPROLOL SUCCINATE 50 MG TABLET PO ONE (08:39)
[2020-07-24] MEDS ORDERED: METOPROLOL SUCCINATE 50 MG TABLET PO SCH (09:00)
[2020-07-24 10:03] VITALS: BP 109/77
== END 2020-07-24 10:30 | disposition home or self-care (01) | DRG 897 ==
LOC: EDUNIT# → ED 04:45 → MS2 14:04 → ICU 07-17 05:04 → MS2 07-21 15:37
PROVIDERS: ADMIT Specialist; ATTEND Internal Medicine
DX: F10.239 Alcohol dependence with withdrawal, unspecified (principal); R56.9 Unspecified convulsions; K70.10 Alcoholic hepatitis without ascites; S01.512A Laceration without foreign body of oral cavity, initial encounter; X58.XXXA Exposure to other specified factors, initial encounter; E87.6 Hypokalemia; R50.9 Fever, unspecified; R00.1 Bradycardia, unspecified; T42.4X5A Adverse effect of benzodiazepines, initial encounter; Y92.230 Patient room in hospital as the place of occurrence of the external cause; I10 Essential (primary) hypertension; H91.90 Unspecified hearing loss, unspecified ear; Z20.828 Contact with and (suspected) exposure to other viral communicable diseases; Z78.1 Physical restraint status; Z72.89 Other problems related to lifestyle; Z79.899 Other long term (current) drug therapy
CPT/HCPCS: 36415; 71045; 76700; 80048; 80053; 80074; 80076; 80306; 80320; 81001; 82040; 82310; 82330; 83690; 83735; 84100; 84132; 85025; 85610; 85730; 87040; 87150; 87635; 96361; 96365; 96366; 96368; 96375; 97116; 97161; 97166; 99284; 99285; A9270; J0131; J2060; J3411; J7040; J7120; 87086

== ENCOUNTER 2021-01-12 13:38 | Outpatient (CLI) | payer OTHER | END 2021-01-12 13:39 | disposition home or self-care (01) | LOC: COV 13:38 | PROVIDERS: ATTEND Physician Assistant | DX: U07.1 COVID-19 (principal) ==

== ENCOUNTER 2022-11-11 09:20 | Outpatient (CLI) | payer OTHER ==
[2022-11-11 14:35] LABS: BASOPHILS % (AUTO) 0.5 %; EOSINOPHILS # (AUTO) 0.1 10^3/uL (0.0-0.7); EOSINOPHILS % (AUTO) 1.2 %; HCT - HEMATOCRIT 50.8 % (42.0-52.0); HGB - HEMOGLOBIN 16.5 g/dL (14.0-18.0); LYMPHOCYTES # (AUTO) 2.1 10^3/uL (1.5-3.5); LYMPHOCYTES % (AUTO) 27.9 %; MEAN CORPUSCULAR HEMOGLOBIN 29.3 pg (27.0-31.0); MEAN CORPUSCULAR HGB CONC 32.5 g/dL (32.0-36.0); MEAN CORPUSCULAR VOLUME 90.1 fL (80.0-94.0); MEAN PLATELET VOLUME 11.5 fL (7.4-11.4); MONOCYTES # (AUTO) 0.5 10^3/uL (0.0-1.0); NEUTROPHILS # (AUTO) 4.8 10^3/uL (1.5-6.6); NEUTROPHILS % (AUTO) 64.1 %; PLT - PLATELET COUNT 250 10^3/uL (130-450); RED BLOOD COUNT 5.64 10^6/uL (4.70-6.10); RED CELL DISTRIBUTION WIDTH 13.1 % (12.0-15.0); WHITE BLOOD COUNT 7.5 x10^3/uL (4.8-10.8)
[2022-11-11 15:01] LABS: THYROID STIMULATING HORMONE 2.72 uIU/mL (0.34-5.60)
[2022-11-11 15:35] LABS: ALBUMIN 4.5 g/dL (3.2-5.5); ALBUMIN/GLOBULIN RATIO 1.5 (1.0-2.2); ALKALINE PHOSPHATASE 45 IU/L (42-121); ALT ALANINE AMINOTRANSFERASE 19 IU/L (10-60); AST ASPARTATE AMINOTRANSFERASE 22 IU/L (10-42); BILIRUBIN,TOTAL 0.5 mg/dL (0.2-1.0); BUN - BLOOD UREA NITROGEN 17 mg/dL (6-20); CALCIUM 8.8 mg/dL (8.5-10.3); CARBON DIOXIDE - CO2 27 mmol/L (21-32); CHLORIDE 103 mmol/L (101-111); CHOLESTEROL 166 mg/dL; CREATININE 0.8 mg/dL (0.6-1.2); GFR - MDRD 106 (>89); GLUCOSE 104 mg/dL (70-100); HDL CHOLESTEROL 33 mg/dL; LDL CHOLESTEROL,CALCULATED 99 mg/dL; POTASSIUM 4.5 mmol/L (3.5-5.0); SODIUM 138 mmol/L (135-145); TOTAL PROTEIN 7.6 g/dL (6.7-8.2); TRIGLYCERIDES 169 mg/dL; VLDL CHOLESTEROL 34 mg/dL
== END 2022-11-11 09:21 | disposition home or self-care (01) ==
LOC: LAB.S 09:20
PROVIDERS: ATTEND Nurse Practitioner Acute Care
DX: I10 Essential (primary) hypertension (principal); Z79.899 Other long term (current) drug therapy; Z13.220 Encounter for screening for lipoid disorders
CPT/HCPCS: 36415; 80053; 80061; 83721; 84443; 85025

== ENCOUNTER 2023-04-15 16:19 | Outpatient (CLI) | payer OTHER ==
--- NOTE | 2023-04-15 17:12 | Ultrasound Report ---
PROCEDURE: Head or Neck Soft Tissue INDICATIONS: MASS OF HEAD TECHNIQUE: Real-time scanning was performed of the thyroid gland, with image documentation. COMPARISON: None Findings and impression: Posterior/distal head area of concern. There is a well-circumscribed lesion measuring 2.8 x 0.8 x 2.6 cm. This might be a lipoma. Continued clinical follow-up is recommended. Consider sampling or reimag ing if there is concern for enlargement. Reviewed by: Hesham Corey MD on 04/15/2023 5:10 PM PDT Approved by: Hesham Corey MD on 04/15/2023 5:10 PM PDT Station ID: [id number]
== END 2023-04-15 16:20 | disposition home or self-care (01) ==
LOC: DI 16:19
PROVIDERS: ATTEND Nurse Practitioner Acute Care
DX: R22.0 Localized swelling, mass and lump, head (principal)

== ENCOUNTER 2023-07-17 10:51 | Day surgery (SDC) | payer OTHER ==
[2023-07-17] MEDS ORDERED: LACTATED RINGERS 1,000 ML IV ONE ×2 (11:16→13:24)
[2023-07-17] MEDS ORDERED: MIDAZOLAM 2 MG/2 ML VIAL ONE (12:03)
[2023-07-17] MEDS ORDERED: PROPOFOL 500 MG/50 ML 500 MG/50 ML VIAL ONE (12:03)
[2023-07-17] MEDS ORDERED: fentaNYL 100 MCG/2 ML VIAL ONE (12:04)
--- NOTE | 2023-07-17 12:04 | ANESTHESIA ---
Pre-Anesthesia VS, & Labs - Diagnosis posterior scalp lipoma - Procedure excision of posterior scalp lipoma Vital Signs: Temp Pulse Resp BP Pulse Ox O2 Flow Rate 35.7 C L 48 L 17 112/83 H 98 0 07/17/23 11:05 07/17/23 11:05 07/17/23 11:05 07/17/23 11:05 07/17/23 11:05 07/17/23 11:05 Height: 5 ft 7 in Weight (kg): 102 kg Body Mass Index: 35.2 BMI Classification: Obese - NPO >8 hours Home Medications and Allergies Home Medications: Ambulatory Orders Cider Vinegar/Jennifer Root Xt [Apple Cider Vinegar-Jennifer Chw] 1 each PO DAILY 07/08/23 Multivit-Minerals/Folic Acid [Multivitamin Gummies] 200 mcg PO DAILY 07/08/23 Metoprolol Succinate 50 mg PO DAILY 07/16/20 Cider Vinegar/Jennifer Root Xt [Apple Cider Vinegar-Jennifer Chw] 1 each PO DAILY 07/08/23 Multivit-Minerals/Folic Acid [Multivitamin Gummies] 200 mcg PO DAILY 07/08/23 Allergies/Adverse Reactions: Allergies Allergy/AdvReac Type Severity Reaction Status Date / Time No Known Drug Allergies Allergy Verified 07/15/20 04:53 Anes History & Medical History - Anesthetic History Family history of Anesthesia Complications: Denies Family history of Malignant Hyperthermia: Denies - Medical History Cardiovascular: reports: Hypertension Pulmonary: reports: None Gastrointestinal: reports: None Urinary: reports: None Neuro: reports: Seizure disorder (due to ETOH withdrawl) Musculoskeletal: reports: None Endocrine/Autoimmune: reports: None Skin: reports: None Smoking Status: Former smoker Psychosocial: reports: Alcohol (Has history of ETOH abuse. Has not used for 3 years.), Cannabis (daily use, smoked this am.) History of Cancer?: No Exam General: Alert, Oriented x3, Cooperative, No acute distress Dental: WNL Mouth Openin Fingerbreadth Neck Mobility: Normal Mallampati classification: III Thyromental Distance: 4-6 cm Mental/Cognitive Status: Alert/Oriented X3, Normal for patient Plan Anesthesia Type: MAC Consent for Procedure(s) Verified and Reviewed: Yes Code Status: Attempt Resuscitation ASA classification: 2-Mild systemic disease Is this case an emergency?: No
[2023-07-17] MEDS ORDERED: LIDOCAINE 1%-EPI 1:100000 20 ML MDV ONE (12:13)
[2023-07-17] MEDS ORDERED: BUPIVACAINE 0.25% PF 30 ML VIAL ONE (12:13)
--- NOTE | 2023-07-17 12:24 | HISTORY & PHYSICAL EXAMINATION ---
Chief Complaint - Chief Complaint Chief Complaint: uncomfortable large lump back of head History of Present Illness - History Obtained From Records Reviewed: yes History obtained from: pt Exam Limitations: none - History of Present Illness HPI Comment/Other: growing and now symptomatic lipoma posterior scalp History - Past Medical History Cardiovascular: reports: Hypertension Respiratory: reports: None Neuro: reports: Seizure disorder (due to ETOH withdrawl) Endocrine/Autoimmune: reports: None GI: reports: None : reports: None HEENT: reports: None Psych: reports: None Musculoskeletal: reports: None Derm: reports: None MRSA Hx?: No - Family & Social History Family History Comment/Other: Mom is in her 60s and and just had a stroke. Dad in his 40s of lupus. 2 siblings are healthy. 1 child is healthy Social History Notes: He is from [place]. 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 He has been doing cannabis off and on all his life since about the age of 10. Drinking since the age of 18. He denies cocaine, heroin, LSD use. Never . Lives with a roommate. Does have one child that he is not in contact with. - POLST Patient has POLST: No POLST Status: Full Code Meds/Allgy - Home Medications Home Medications: Ambulatory Orders Medication Instructions Recorded Confirmed Metoprolol Succinate 50 mg PO DAILY 07/16/20 07/17/23 Cider Vinegar/Jennifer Root Xt 1 each PO DAILY 07/08/23 07/17/23 [Apple Cider Vinegar-Jennifer Chw] Multivit-Minerals/Folic Acid 200 mcg PO DAILY 07/08/23 07/17/23 [Multivitamin Gummies] - Allergies Allergies/Adverse Reactions: Allergies Allergy/AdvReac Type Severity Reaction Status Date / Time No Known Drug Allergies Allergy Verified 07/15/20 04:53 Review of Systems - Other Findings Other Findings: 10 pt ros as above otherwise unremarkable Exam - Vital Signs Reviewed Vital Signs: Yes Vital Signs: Vital Signs x48h Temp Pulse Resp BP Pulse Ox O2 Flow Rate 07/17/23 11:05 35.7 C L 48 L 17 112/83 H 98 0 - Physical Exam General Appearance: positive: No acute distress, Alert Eyes Bilateral: positive: PERRL, EOMI Neck: positive: No JVD, Trachea midline Respiratory: positive: Breath sounds nml Cardiovascular: positive: Regular rate & rhythm Abdomen: positive: No distention Neurologic/Psychiatric: positive: Oriented x3 Comments/Other: posterior scalp 3.5 x 3.5 cm lipoma Conclusion/Plan - Problem List (1) Lipoma of scalp Conclusion/Plan: plan excision. parq held and consent obtained
[2023-07-17] MEDS ORDERED: BACITRACIN ZINC OINT 1 PACKET TOP ONE (13:22)
[2023-07-17] MEDS ORDERED: HYDROcod/ACETAM 5/325 MG TABLET PO PRN (13:24)
[2023-07-17] MEDS ORDERED: BUPIVACAINE 0.25% PF 30 ML VIAL SUBQ ONE (13:29)
[2023-07-17] MEDS ORDERED: LIDOCAINE 1%-EPI 1:100000 20 ML MDV SUBQ ONE (13:30)
[2023-07-17] MEDS ORDERED: BACITRACIN ZINC OINT 14 GM TOP ONE (13:30)
[2023-07-17 13:40] VITALS: O2SAT 97
--- NOTE | 2023-07-17 13:50 | OPERATIVE REPORT ---
Operative Report - General Procedure Date: 07/17/23 Planned Procedure: excision 3.5 cm scalp lipoma Pre-Op Diagnosis: 3.5 cm posterior scalp lipoma Procedure Performed: excision 3.5 cm posterior scalp lipoma 3.5 cm scalp incision intermediate repair Post Op Diagnosis: same - Procedure Note Primary Surgeon: ata rodríguez Anesthesia Technique: Local, MAC Pathology: benign. not sent Estimated Blood Loss (mL): 4 Drain/Tube Type: Other (none) Indications: growing and symptomatic scalp lipoma Findings: as above Complications: none - Other Other Information/Narrative: The patient was properly identified brought to the operating room and placed in right lateral decubitus position. Area was previously marked. He was prepped and draped in a sterile fashion. Antibiotics were not given. He has a 3.5 cm posterior scalp lipoma slightly left lateral of midline. A vertical and elliptical incision was made directly over the lipoma measuring approximately 3. 5 cm. An ellipse of skin was removed. The lipoma was removed in its entirety with gentle retraction and cautery. Hemostasis was assured. Deep subcutaneous tissue was closed with interrupted 2-0 Vicryl suture. Buried and interrupted subdermal 3-0 Vicryl sutures were then placed. Skin was closed with a running 3-0 nylon. Tolerated the procedure well was brought to recovery in good condition.
[2023-07-17 14:18] VITALS: BP 111/85
--- NOTE | 2023-07-17 15:23 | ANESTHESIA POST OP EVALUATION ---
Anesthesia Post Eval - Post Anesthesia Eval Vitals: Last Vital Signs Temp 36.0 C L 07/17/23 13:45 Pulse 49 L 07/17/23 13:50 Resp 14 07/17/23 13:50 BP 111/85 H 07/17/23 13:50 Pulse Ox 97 07/17/23 13:50 O2 Flow Rate 0 07/17/23 11:05 CV Function Including HR & BP: Stable Pain Control: Satisfactory Nausea & Vomiting: Negative Mental Status: Baseline Respiratory Status: Airway Patent Hydration Status: Satisfactory Anesthesia Complications: None
== END 2023-07-17 10:52 | disposition home or self-care (01) ==
LOC: SDS 10:51
PROVIDERS: ATTEND Surgery
DX: D17.0 Benign lipomatous neoplasm of skin and subcutaneous tissue of head, face and neck (principal); I10 Essential (primary) hypertension; E66.9 Obesity, unspecified; Z68.35 Body mass index [BMI] 35.0-35.9, adult
CPT/HCPCS: 11424; 12032; A9270; J7120